=== PATIENT | male | born 1940 | race Caucasian/White ===

== ENCOUNTER 2018-06-14 10:42 | Inpatient (IN) | payer OTHER ==
[2018-06-14] MEDS ORDERED: SODIUM CHLORIDE 0.9% 1000 ML INFUS.BAG IV ONE ×2 (10:52→12:21)
[2018-06-14] MEDS ORDERED: LORazepam 20 MG/10 ML 10 ML MDV ONE (10:54)
--- NOTE | 2018-06-14 11:00 | CON.GI ---
Consult Consult Specialty:: Gastroenterology Referred by:: Dr Etienne Reason for Consultation:: Sigmoid perforation during colonoscopy - History of Present Illness Chief Complaint: patient is intubated History of Present Illness: 77M was undergoing screening colonoscopy in the office with my partner, Dr. Vu Ramos today when he suffered a perforation of the sigmoid colon. The sigmoid colon was tortuous with diverticular disease. A polyp was discovered and during attempts to position the scope for polypectomy bleeding developed which was found to be emanating from a perforation in the sigmoid colon. The colonoscopy was made more challenging by inguinal hernias. He developed abdominal distension and hypoxemia that required intubation before he awoke. He is BIBA. His emergency contacts are his son Peyman Levin , eldest sibling) and daughter Muna Jc ( [phone], ). They were contacted and now are present. I have discussed the situation with them and the need for emergent surgery. He last had a colonoscopy in 2002. During his 05/08 consultation he was complaining of constipation and LLQ pain. A surgical appliances salesperson did not feel that he hernias were the cause of the pain. - History Source History Provided By: Medical Record (from my office and in discussion with Dr Layne) Limitations to Obtaining History: Other (intubated) - Past Medical History Gastrointestinal: Yes: Diverticulosis, Hemorrhoids (hemorrhoidectomy), Other ( inguinal hernias) Additional Medical History: no medical problems were offered on 05/08/18 other than the hernias - Past Surgical History Past Surgical History: Yes: Colonoscopy Additional Surgical History: Hemorrhoidectomy - Alcohol/Substance Use Hx Alcohol Use: Yes Number of Drinks Daily: 2 (glasses of wine) History of Substance Use: reports: None - Smoking History Smoking history: Never smoked - Social History ADL: Independent 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 DM, smoker), Other : Mother ( 84 OMS) Physical Exam-GI Vital Signs: Vital Signs 06/14/18 11:00 Pulse Rate 81 Respiratory 18 Rate Blood Pressure 136/91 O2 Sat by Pulse 100 Oximetry (%) Current Medications Generic Name Dose Route Start Last Admin Trade Name José Miguel PRN Reason Stop Dose Admin Lorazepam 40 mg/ Dextrose 120 mls @ 6 mls/hr 06/14/18 11:00 06/14/18 11:12 IVPB 2 mg/hr TITR CASS 6 mls/hr Administration Protocol 2 MG/HR Piperacillin Sod/Tazobactam 50 mls @ 100 mls/hr 06/14/18 11:14 Sod 3.375 gm/ Dextrose IVPB 06/14/18 11:43 ONCE ONE Protocol Constitutional: Yes: Other (Intubated and sedated) Eyes: Yes: Conjunctiva Clear HENT: Yes: Atraumatic Neck: Yes: Supple Cardiovascular: Yes: Tachycardia Respiratory: Yes: CTA Bilaterally Gastrointestinal Inspection: Yes: Distention ...Auscultate: Yes: No Bowel Sounds ...Palpate: Yes: Other (no masses bilateral inguinal hernias, neither appears compromised) ...Percussion: Yes: Tympanitic ...Rectal Exam: Yes: Deferred Edema: No Neurological: Yes: Other (sedated) Problem List - Problems (1) Perforated sigmoid colon Code(s): K63.1 - PERFORATION OF INTESTINE (NONTRAUMATIC) (2) Diverticula of colon Code(s): K57.30 - DVRTCLOS OF LG INT W/O PERFORATION OR ABSCESS W/O BLEEDING (3) Inguinal hernia bilateral, non-recurrent Code(s): K40.20 - BI INGUINAL HERNIA, W/O OBST OR GANGRENE, NOT SPCF RECUR Assessment/Plan Impression: Perforation of sigmoid colon during colonoscopy. The bowel was prepped for the colonoscopy. Inguinal hernias Diverticulosis Plan: IV fluids IV antibiotics Zambrano catheter Blood cultures Prep for surgery I discussed the situation with his son and daughter Dr Ramos already discussed the case with Dr Tripathi
[2018-06-14] MEDS ORDERED: LORazepam 2 MG/ML SDV VIAL ONE (11:11)
[2018-06-14] MEDS ORDERED: PIPERACILLIN/TAZOB 3.375 GM 3.375 GM in DEXTROSE 5%-WATER - 50 ML IVPB ONE (11:14)
[2018-06-14] MEDS ORDERED: morphine SULFATE 4 MG/ML VIAL ONE (11:16)
[2018-06-14] MEDS ORDERED: morphine CARPU-JECT 4 MG/1 ML DISP.SYRIN IVPUSH ONE (11:17)
[2018-06-14 11:23] LABS: BASO % 0.6 % (0-2.0); EOS % 0.2 % (0-4.5); HEMATOCRIT 49.7 % (35.4-49); HEMOGLOBIN 16.9 GM/dL (11.7-16.9); LYMPH % 19.4 % (8-40); MCH 32.4 pg (25.7-33.7); MEAN CELL VOLUME 95.2 fl (80-96); MEAN PLT VOLUME 8.3 fl (7.5-11.1); MONO % 3.7 % (3.8-10.2); NEUT % 76.1 % (42.8-82.8); PLATELET COUNT 307 K/MM3 (134-434); RBC 5.22 M/mm3 (4.00-5.60); RDW 13.7 % (11.9-15.9); WHITE BLOOD COUNT 9.3 K/mm3 (4.0-10.0)
[2018-06-14] MEDS ORDERED: PIPERACILLIN/TAZOB 3.375 GM 3.375 GM/50 ML BAG IVPB ONE (11:29)
[2018-06-14 11:34] LABS: INR 0.99 (0.83-1.09); PROTHROMBIN TIME (PATIENT) 11.7 SEC (9.7-13.0)
[2018-06-14 11:37] LABS: ACTIVATED PTT 29.1 SECONDS (25.2-36.5)
[2018-06-14 11:46] LABS: ALK PHOS 89 U/L (45-117); ANION GAP 8 MMOL/L (8-16); BILIRUBIN,TOTAL 1.7 mg/dL (0.2-1); BLOOD UREA NITROGEN 14 mg/dL (7-18); CALCIUM 9.3 mg/dL (8.5-10.1); CHLORIDE 104 mmol/L (98-107); CO2 26 mmol/L (21-32); CREATININE 1.4 mg/dL (0.55-1.3); GLUCOSE,RANDOM 130 mg/dL (74-106); POTASSIUM 4.3 mmol/L (3.5-5.1); SGOT/AST 24 U/L (15-37); SGPT/ALT 31 U/L (13-61); SODIUM 139 mmol/L (136-145); TOT PROT 7.5 g/dl (6.4-8.2)
[2018-06-14 11:52] LABS: URINE APPEARANCE SLCLOUDY; URINE BILIRUBIN NEGATIVE (<2.0 mg/dL); URINE COLOR YELLOW; URINE GLUCOSE (UA) NEGATIVE (NEGATIVE); URINE KETONE 1+ (NEGATIVE); URINE LEUK ESTERASE NEGATIVE (NEGATIVE); URINE NITRITE NEGATIVE (NEGATIVE); URINE PROTEIN 1+ (NEGATIVE); URINE UROBILINOGEN NEGATIVE mg/dL (0.2-1.0)
--- NOTE | 2018-06-14 12:05 | EKG ---
Test Reason : Blood Pressure : / mmHG Vent. Rate : 085 BPM Atrial Rate : 085 BPM P-R Int : 134 ms QRS Dur : 074 ms QT Int : 394 ms P-R-T Axes : 059 014 054 degrees QTc Int : 468 ms POOR DATA QUALITY, INTERPRETATION MAY BE ADVERSELY AFFECTED SINUS RHYTHM WITH OCCASIONAL PREMATURE VENTRICULAR COMPLEXES LOW VOLTAGE QRS NONSPECIFIC T WAVE ABNORMALITY PROLONGED QT ABNORMAL ECG NO PREVIOUS ECGS AVAILABLE Confirmed by MAI MADRID, MARY ([id number]) on 06/14/2018 12:05:35 PM Referred By: Confirmed By:MARY ONEILL MD
[2018-06-14] MEDS ORDERED: ONDANSETRON 4 MG/2 ML VIAL IVPB PRN (12:13)
[2018-06-14] MEDS ORDERED: SODIUM CHLORIDE 1,000 ML IV SCH ×2 (12:15→18:30)
--- NOTE | 2018-06-14 12:16 | HP ---
CHIEF COMPLAINT: intestinal perforation PCP: dr sloan HISTORY OF PRESENT ILLNESS: History obtained from er notes and daughter. pt is intubated and sedated The patient is a 77 year old male, with a significant past medical history of diverticulitis, hemorrhoidectomy, who presents to the emergency department via ems from the office of Dr. Vu Ramos for a perforated bowel sustained while undergoing a screening colonoscopy today. The patient was reportedly intubated in the office and transferred to the ED with plan for surgery. ER course was notable for: (1)cbc, cmp, iv fluid, cxr, zosyn Recent Travel:no PAST MEDICAL HISTORY:hld PAST SURGICAL HISTORY:hemorrhoidectomy Social History: Smoking:no Alcohol:no Drugs: no Family History: not relevent Allergies No Known Allergies Allergy (Verified 03/13/18 10:22) HOME MEDICATIONS: Home Medications Medication Instructions Recorded Aspirin [ASA -] 81 mg PO DAILY 03/13/18 Cholecalciferol (Vitamin D3) 1,000 unit PO DAILY 03/13/18 [Vitamin D3] Folic Acid/Multivit-Min/Lutein 1 each PO DAILY 03/13/18 [Multi-Vitamin Gummies] REVIEW OF SYSTEMS: unobtainable PHYSICAL EXAMINATION Vital Signs - 24 hr 06/14/18 06/14/18 06/14/18 10:45 11:00 11:43 Pulse Rate 81 Pulse Rate [ 85 Apical] Respiratory 16 18 Rate Blood Pressure 136/91 Blood Pressure 101/58 L [Left Arm] O2 Sat by Pulse 100 100 Oximetry (%) GENERAL: intubated sedated EARS, NOSE, THROAT: dry mucous membranes. NECK: no JVD, or masses. LUNGS: Breath sounds equal, clear to auscultation bilaterally. No wheezes, and no crackles. No accessory muscle use. intubated HEART: Regular rate and rhythm, normal S1 and S2 without murmur, rub or gallop. ABDOMEN: distended, tender, bs- UPPER EXTREMITIES: 2+ pulses, warm, well-perfused. No cyanosis. No clubbing. No peripheral edema. LOWER EXTREMITIES: 2+ pulses, warm, well-perfused. No calf tenderness. No peripheral edema. PSYCHIATRIC: Cooperative. Good eye contact. Appropriate mood and affect. SKIN: Warm, dry, Laboratory Results - last 24 hr 06/14/18 06/14/18 06/14/18 11:02 11:02 11:02 WBC 9.3 RBC 5.22 Hgb 16.9 Hct 49.7 H MCV 95.2 MCH 32.4 MCHC 34.0 RDW 13.7 Plt Count 307 MPV 8.3 Absolute Neuts (auto) 7.1 Neutrophils % 76.1 Lymphocytes % 19.4 Monocytes % 3.7 L Eosinophils % 0.2 Basophils % 0.6 Nucleated RBC % 0 PT with INR 11.70 INR 0.99 PTT (Actin FS) 29.1 Sodium 139 Potassium 4.3 Chloride 104 Carbon Dioxide 26 Anion Gap 8 BUN 14 Creatinine 1.4 H Creat Clearance w eGFR 49.41 Random Glucose 130 H Calcium 9.3 Total Bilirubin 1.7 H AST 24 ALT 31 Alkaline Phosphatase 89 Total Protein 7.5 Albumin 4.0 Urine Color Urine Appearance Urine pH Ur Specific Etters Urine Protein Urine Glucose (UA) Urine Ketones Urine Blood Urine Nitrite Urine Bilirubin Urine Urobilinogen Ur Leukocyte Esterase Blood Type Antibody Screen 06/14/18 06/14/18 11:02 11:42 WBC RBC Hgb Hct MCV MCH MCHC RDW Plt Count MPV Absolute Neuts (auto) Neutrophils % Lymphocytes % Monocytes % Eosinophils % Basophils % Nucleated RBC % PT with INR INR PTT (Actin FS) Sodium Potassium Chloride Carbon Dioxide Anion Gap BUN Creatinine Creat Clearance w eGFR Random Glucose Calcium Total Bilirubin AST ALT Alkaline Phosphatase Total Protein Albumin Urine Color Yellow Urine Appearance Slcloudy Urine pH 5.0 Ur Specific Etters 1.015 Urine Protein 1+ H Urine Glucose (UA) Negative Urine Ketones 1+ H Urine Blood 2+ H Urine Nitrite Negative Urine Bilirubin Negative Urine Urobilinogen Negative Ur Leukocyte Esterase Negative Blood Type Cancelled Antibody Screen Cancelled ASSESSMENT/PLAN: perforation peritonitis IV fluid monitor intake/ output: maintain UO of 0.5 to 1ml/kg/hr Monitor vitals, keep map> 65 IV antibiotics on zosyn ID consult surgery on case blood culture pending cxr repeat labs in am zofran prn pantoprazole 40 iv pain control acute respiratory failure : on ventilator support fio2 40, RR 12, TV 400, peep5 keep spo2> [address] [facility] [address] ruiz consult fluid : ns 125ml/hr electrolyte: repeat in am nutrition: npo for now dvt pro: scd gi pro: protonix dispo: icu Visit type - Emergency Visit Emergency Visit: Yes ED Registration Date: 06/14/18 Care time: The patient presented to the Emergency Department on the above date and was hospitalized for further evaluation of their emergent condition. - New Patient This patient is new to me today: Yes Date on this admission: 06/16/18 - Critical Care Critical Care patient: No
[2018-06-14 12:19] LABS: URINE HYALINE CAST 3 /lpf; URINE MUCUS RARE
--- NOTE | 2018-06-14 12:30 | PN ---
Teaching Attending Note Name of Resident: Dayron Avery ATTENDING PHYSICIAN STATEMENT I saw and evaluated the patient. I reviewed the resident's note and discussed the case with the resident. I agree with the resident's findings and plan as documented. SUBJECTIVE: Mr Levin is a 77 year old male presenting from outpatient colonoscopy for iatrogenic perforation. He is intubated and mechanically ventilated upon seeing. Son is at bedside and states patient does not have any medical problems and does not take medications. He says the patient was in his normal state of health and without complaints prior to procedure. PMHx: none PSHx: hemorrhoidectomy Allergies: none Medications: none SHx: denies tobacco, alcohol, recreational drug use FHx: father of [place], mother of senile dementia ROS: unable to obtain, patient intubated and sedated OBJECTIVE: Last Vital Signs Temp Pulse Resp BP Pulse Ox 98 H 16 104/69 100 06/14/18 14:03 06/14/18 14:03 06/14/18 14:03 06/14/18 14:03 Gen: intubated and sedated Pulm: ctab, mechanically ventilated CV: tachy but regular w/o m/r/g Abd: distended, hypoactive bowel sounds Ext: no c/c/e CBC, BMP 06/14/18 11:02 06/14/18 11:02 ASSESSMENT AND PLAN: Problem List - Problems (1) Perforated sigmoid colon Assessment/Plan: -admit to ICU -surgery consulted and will see, plan for emergent surgical intervention -placed on zosyn, will continue -ID consulted Code(s): K63.1 - PERFORATION OF INTESTINE (NONTRAUMATIC) (2) Respiratory failure Assessment/Plan: -currently mechanically ventilated -admit to ICU -evaluate for extubation after surgery Code(s): J96.90 - RESPIRATORY FAILURE, UNSP, UNSP W HYPOXIA OR HYPERCAPNIA Qualifiers: Chronicity: acute Respiratory failure complication: hypoxia Qualified Code(s): J96.01 - Acute respiratory failure with hypoxia (3) Lactic acid acidosis Assessment/Plan: -secondary to perforation -hydrate with IVF -continue zosyn -surgical repair of perforation -mechanical support of ventilation Code(s): E87.2 - ACIDOSIS
[2018-06-14] MEDS ORDERED: fentaNYL CITRATE 250 MCG/5 ML VIAL ONE ×2 (12:56→18:33)
[2018-06-14] MEDS ORDERED: ROCURONIUM BROMIDE 50 MG/5 ML VIAL ONE ×2 (12:58→14:58)
[2018-06-14] MEDS ORDERED: SUCCINYLCHOLINE CHLORIDE 200 MG/10 ML VIAL ONE (12:58)
[2018-06-14] MEDS ORDERED: DEXAMETHASONE SOD PHOSPHATE 4 MG/1 ML VIAL ONE ×2 (13:07→13:08)
[2018-06-14] MEDS ORDERED: KETOROLAC TROMETHAMINE 30 MG/1 ML VIAL ONE ×2 (13:07→13:08)
[2018-06-14] MEDS ORDERED: ONDANSETRON 4 MG/2 ML VIAL ONE (13:08)
[2018-06-14] MEDS ORDERED: PHENYLEPHRINE HCL 10 MG/1 ML SINGLE DOSE VIAL ONE (13:20)
--- NOTE | 2018-06-14 14:27 | CONSULT ---
- Consultation REQUESTING PROVIDER: Richard MADRID CONSULT REQUEST: We have been asked to surgically evaluate this patient for ( specify). PCP:Lawrence Cantor MD HISTORY OF PRESENT ILLNESS: 77y/o male was undergoing screening colonoscopy today as an outpatient and I was contacetde by Dr. Marcelle Ramos that there was a perforation of the sigmoid colon; pt. was intubated in the office and xferred to the [facility] ER. PMHx: none PSHx: none Home Medications Medication Instructions Recorded Aspirin [ASA -] 81 mg PO DAILY 03/13/18 Cholecalciferol (Vitamin D3) 1,000 unit PO DAILY 03/13/18 [Vitamin D3] Folic Acid/Multivit-Min/Lutein 1 each PO DAILY 03/13/18 [Multi-Vitamin Gummies] Allergies Allergy/AdvReac Type Severity Reaction Status Date / Time No Known Allergies Allergy Verified 06/14/18 12:31 REVIEW OF SYSTEMS: all negative per his daughter e/f known bilateral inguinal hernias. CONSTITUTIONAL: Absent: fever, chills, diaphoresis, generalized weakness, malaise, loss of appetite, weight change CARDIOVASCULAR: Absent: chest pain, syncope, palpitations, irregular heart rate, lightheadedness , peripheral edema RESPIRATORY: Absent: cough, shortness of breath, dyspnea with exertion, wheezing, stridor, hemoptysis GASTROINTESTINAL: Absent: abdominal pain, abdominal distension, nausea, vomiting, diarrhea, constipation, melena, hematochezia GENITOURINARY: Absent: dysuria, frequency, urgency, hesitancy, hematuria, flank pain, genital pain MUSCULOSKELETAL: Absent: myalgia, arthralgia, joint swelling, back pain, neck pain SKIN: Absent: rash, itching, pallor HEMATOLOGIC/IMMUNOLOGIC: Absent: easy bleeding, easy bruising, lymphadenopathy NEUROLOGIC: Absent: headache, focal weakness, paresthesias, dizziness, unsteady gait, seizure, mental status changes, bladder or bowel incontinence PSYCHIATRIC: Absent: anxiety, depression, suicidal or homicidal ideation, hallucinations. PHYSICAL EXAM: GENERAL: Sedated and intubated in acute distress. HEAD: Normal with no signs of trauma. EYES: PERRL, sclera anicteric, conjunctiva clear. NECK: Normal ROM, supple without lymphadenopathy, JVD, or masses. ABDOMEN: Rigid and distended, absebt bowel sounds, guarding and rebound are present,there are b/l inguinal hernias. MUSCULOSKELETAL: Normal ROM at all joints. No bony deformities or tenderness. No CVA tenderness. UPPER EXTREMITIES: 2+ pulses, warm, well-perfused. No cyanosis. Cap refill <2 seconds. No peripheral edema. LOWER EXTREMITIES: 2+ pulses, warm, well-perfused. No calf tenderness. No peripheral edema. NEUROLOGICAL: gait not observed. SKIN: Warm, dry, normal turgor, no rashes or lesions noted. Vital Signs Temperature Pulse Rate 98 H 06/14/18 14:03 Respiratory Rate 16 06/14/18 14:03 Blood Pressure 104/69 06/14/18 14:03 O2 Sat by Pulse Oximetry (%) 100 06/14/18 14:03 Lab Results WBC 9.3 K/mm3 (4.0-10.0) 06/14/18 11:02 RBC 5.22 M/mm3 (4.00-5.60) 06/14/18 11:02 Hgb 16.9 GM/dL (11.7-16.9) 06/14/18 11:02 Hct 49.7 % (35.4-49) H 06/14/18 11:02 MCV 95.2 fl (80-96) 06/14/18 11:02 MCHC 34.0 g/dl (32.0-35.9) 06/14/18 11:02 RDW 13.7 % (11.9-15.9) 06/14/18 11:02 Plt Count 307 K/MM3 (134-434) 06/14/18 11:02 Sodium 139 mmol/L (136-145) 06/14/18 11:02 Potassium 4.3 mmol/L (3.5-5.1) 06/14/18 11:02 Chloride 104 mmol/L (98-107) 06/14/18 11:02 Carbon Dioxide 26 mmol/L (21-32) 06/14/18 11:02 Anion Gap 8 MMOL/L (8-16) 06/14/18 11:02 BUN 14 mg/dL (7-18) 06/14/18 11:02 Creatinine 1.4 mg/dL (0.55-1.3) H 06/14/18 11:02 Random Glucose 130 mg/dL (74-106) H 06/14/18 11:02 Calcium 9.3 mg/dL (8.5-10.1) 06/14/18 11:02 Blood Type Cancelled 06/14/18 11:02 Antibody Screen Cancelled 06/14/18 11:02 INR 0.99 (0.83-1.09) 06/14/18 11:02 CXR c/w pneumoperitoneum IMP: preforated sigmoid colon PLAN: To OR for laparotomy and possible Hartmans procedure and AOSDN; informed consent obtained from the patients daughter Elise; r/b/t/a's d/w her. Sebas Guzman> Bhumi MADRID FACS
[2018-06-14] MEDS ORDERED: ERTAPENEM SODIUM 1 GM VIAL IVPB ONE (14:41)
[2018-06-14] MEDS ORDERED: CEFOXITIN SODIUM 2 GM IVPB ONE (14:53)
[2018-06-14] MEDS ORDERED: ERTAPENEM SODIUM 1 GM VIAL ONE (14:54)
[2018-06-14] MEDS ORDERED: PROPOFOL 20 ML ONE (14:59)
[2018-06-14] MEDS ORDERED: ONDANSETRON 4 MG/2 ML VIAL IVPUSH PRN (15:26)
[2018-06-14] MEDS ORDERED: LACTATED RINGERS SOLUTION 1,000 ML IV SCH (15:30)
[2018-06-14] MEDS ORDERED: HYDROmorphone HCl 2 MG/ML VIAL ONE (16:11)
[2018-06-14] MEDS ORDERED: BENZOIN TINCTURE SWABSTICK TP ONE ×2 (16:32)
[2018-06-14] MEDS ORDERED: GLYCOPYRROLATE 0.2 MG/1 ML VIAL ONE (17:18)
[2018-06-14] MEDS ORDERED: NEOSTIGMINE METHYLSULFATE 0.5 MG/1 ML - 10 ML MDV ONE (17:18)
--- NOTE | 2018-06-14 17:36 | OP ---
Operative Note - Note: Operative Date: 06/14/18 Pre-Operative Diagnosis: Perforated sigmoid colon Operation: Exploratory laparotomy, Robb's procedure Post-Operative Diagnosis: Same as Pre-op Surgeon: Sebas Tripathi Stock Preparer: Issa Duron Anesthesiologist/YOUTH SUPPORT WORKER: Jones Gonzalez Anesthesia: General Estimated Blood Loss (mls): 100 Operative Report Dictated: Yes
--- NOTE | 2018-06-14 17:37 | SURG ---
Surgery Clinical Safety Manager Note Clinical Safety Manager: Issa Duron PA-C Date of Service: 06/14/18 Diagnosis: Perforated sigmoid colon Procedure: Exploratory laparotomy, nobles's procedure I was present for the entirety of the operative procedure. For further detail, please refer to operative report. Visit type - Case Type Case Type: ED Admission - Emergency Emergency Visit: Yes ED Registration Date: 06/14/18 Care time: The patient presented to the Emergency Department on the above date and was hospitalized for further evaluation of their emergent condition. - New patient This patient is new to me today: Yes Date on this admission: 06/14/18
[2018-06-14] MEDS ORDERED: LACTATED RINGERS SOLUTION 1,000 ML/1,000 ML INFUS.BAG IV SCH (18:00)
[2018-06-14] MEDS ORDERED: PROPOFOL 1,000,000 MCG/100 ML VIAL IVPB SCH (18:00)
[2018-06-14] MEDS ORDERED: FENTANYL INJECTION 500 MCG in DEXTROSE 5%-WATER - 90 ML IVPB SCH (18:00)
--- NOTE | 2018-06-14 18:08 | CONSULT ---
Consultation: REQUESTING PROVIDER: CONSULT REQUEST: We have been asked to medically evaluate this patient for postoperative management, ICU admission. HISTORY OF PRESENT ILLNESS: Patient is a 77 year old male with history of diverticulosis, hemorrhoids (s/p hemorrhoidectomy), bilateral inguinal hernias, presented to [facility] emergency department after sigmoid colon perforation with screening colonoscopy. Last colonoscopy performed in 2002. No documented history of prior bowel perforation. He is s/p exploratory laparotomy, and Robb's procedure today. EBL 100mL. Upon my encounter patient is intubated, sedated in no acute distress. Son: Peyman Daughter: Mary Lou Past medical history: diverticulosis, hemorrhoids, bilateral inguinal hernias Past surgical history: hemorrhoidectomy Allergies: no known drug allergies Family history: (obtained from chart review) Father: Hypertension, from myocardial infarction Mother: Dementia REVIEW OF SYSTEMS: Unable to obtain. Patient is intubated and sedated. PHYSICAL EXAMINATION Vital Signs - 24 hr 06/14/18 06/14/18 06/14/18 10:45 11:00 11:43 Pulse Rate 81 Pulse Rate [ 85 Apical] Respiratory 16 18 Rate Blood Pressure 136/91 Blood Pressure 101/58 L [Left Arm] O2 Sat by Pulse 100 100 Oximetry (%) 06/14/18 14:03 Pulse Rate Pulse Rate [ 98 H Apical] Respiratory 16 Rate Blood Pressure Blood Pressure 104/69 [Left Arm] O2 Sat by Pulse 100 Oximetry (%) GENERAL: Patient is intubated, sedated. HEAD: Normocephalic, atrauamtic. EYES: Pupils equal, round and reactive to light, sclera anicteric, conjunctiva clear. EARS, NOSE, THROAT: Oropharynx clear without exudates. Dry mucous membranes. NECK: Supple without lymphadenopathy. LUNGS: Intubated. Mechanical breath sounds equal, clear to auscultation bilaterally. No wheezes, and no crackles. HEART: Regular rate and rhythm, normal S1 and S2 without murmur, rub or gallop. ABDOMEN: Tensly distended. Tympanic to percussion x4 quadrants. Hypoactive bowel sounds X4 quadrants. No hepatomegaly or splenomegaly palpated or percussed. Surgical site bandaged clean, dry, intact. BETTY drain draining sanguinous discharge. UPPER EXTREMITIES: 2+ radial pulses bilaterally, warm, well-perfused. Cap refill <2 seconds. LOWER EXTREMITIES: 2+ dorsalis pedis pulses, warm, well-perfused. No peripheral edema bilateral lower extremities. NEUROLOGICAL: Patient is sedated. Symmetrical muscle tone bilateral upper and lower extremities. Laboratory Results - last 24 hr 06/14/18 06/14/18 06/14/18 11:02 11:02 11:02 WBC 9.3 RBC 5.22 Hgb 16.9 Hct 49.7 H MCV 95.2 MCH 32.4 MCHC 34.0 RDW 13.7 Plt Count 307 MPV 8.3 Absolute Neuts (auto) 7.1 Neutrophils % 76.1 Lymphocytes % 19.4 Monocytes % 3.7 L Eosinophils % 0.2 Basophils % 0.6 Nucleated RBC % 0 PT with INR 11.70 INR 0.99 PTT (Actin FS) 29.1 Sodium 139 Potassium 4.3 Chloride 104 Carbon Dioxide 26 Anion Gap 8 BUN 14 Creatinine 1.4 H Creat Clearance w eGFR 49.41 Random Glucose 130 H Lactic Acid Calcium 9.3 Total Bilirubin 1.7 H AST 24 ALT 31 Alkaline Phosphatase 89 Total Protein 7.5 Albumin 4.0 Urine Color Urine Appearance Urine pH Ur Specific [place] Urine Protein Urine Glucose (UA) Urine Ketones Urine Blood Urine Nitrite Urine Bilirubin Urine Urobilinogen Ur Leukocyte Esterase Urine WBC (Auto) Urine RBC (Auto) Hyaline Casts Urine Mucus Blood Type Antibody Screen 06/14/18 06/14/18 06/14/18 11:02 11:05 11:42 WBC RBC Hgb Hct MCV MCH MCHC RDW Plt Count MPV Absolute Neuts (auto) Neutrophils % Lymphocytes % Monocytes % Eosinophils % Basophils % Nucleated RBC % PT with INR INR PTT (Actin FS) Sodium Potassium Chloride Carbon Dioxide Anion Gap BUN Creatinine Creat Clearance w eGFR Random Glucose Lactic Acid Calcium Total Bilirubin AST ALT Alkaline Phosphatase Total Protein Albumin Urine Color Yellow Urine Appearance Slcloudy Urine pH 5.0 Ur Specific [place] 1.015 Urine Protein 1+ H Urine Glucose (UA) Negative Urine Ketones 1+ H Urine Blood 2+ H Urine Nitrite Negative Urine Bilirubin Negative Urine Urobilinogen Negative Ur Leukocyte Esterase Negative Urine WBC (Auto) 2 Urine RBC (Auto) 13 Hyaline Casts 3 Urine Mucus Rare Blood Type Cancelled O POSITIVE Antibody Screen Cancelled 06/14/18 06/14/18 13:10 13:10 WBC RBC Hgb Hct MCV MCH MCHC RDW Plt Count MPV Absolute Neuts (auto) Neutrophils % Lymphocytes % Monocytes % Eosinophils % Basophils % Nucleated RBC % PT with INR INR PTT (Actin FS) Sodium Potassium Chloride Carbon Dioxide Anion Gap BUN Creatinine Creat Clearance w eGFR Random Glucose Lactic Acid 2.6 H* Calcium Total Bilirubin AST ALT Alkaline Phosphatase Total Protein Albumin Urine Color Urine Appearance Urine pH Ur Specific [place] Urine Protein Urine Glucose (UA) Urine Ketones Urine Blood Urine Nitrite Urine Bilirubin Urine Urobilinogen Ur Leukocyte Esterase Urine WBC (Auto) Urine RBC (Auto) Hyaline Casts Urine Mucus Blood Type O POSITIVE Antibody Screen Negative Active Medications Generic Name Dose Route Start Last Admin Trade Name Freq PRN Reason Stop Dose Admin Acetaminophen 1,000 mg 06/14/18 12:14 Ofirmev Injection - IVPB Q6H PRN PAIN LEVEL 4 - 6 Albuterol/Ipratropium 1 amp 06/14/18 16:00 Duoneb - NEB RQID CASS Chlorhexidine Gluconate 1 applic 06/14/18 22:00 Hibiclens For Decolonization - TP HS CASS Fentanyl 25 mcg 06/14/18 15:26 Sublimaze Injection - IVPUSH [id number] PRN PAIN-PACU ORDER X 4 DOSES ONLY Lorazepam 40 mg/ Dextrose 120 mls @ 6 mls/hr 06/14/18 11:00 06/14/18 12:48 IVPB 3 mg/hr TITR CASS 9 mls/hr Titration Protocol 2 MG/HR Sodium Chloride 1,000 mls @ 125 mls/hr 06/14/18 12:15 Normal Saline - IV ASDIR CASS Piperacillin Sod/Tazobactam 100 mls @ 200 mls/hr 06/15/18 15:00 Sod 4.5 gm/ Dextrose IVPB Q6H-IV CASS Protocol Piperacillin Sod/Tazobactam 100 mls @ 200 mls/hr 06/14/18 15:00 Sod 4.5 gm/ Dextrose IVPB 06/15/18 09:29 Q6H-IV CASS Lactated Ringer's 1,000 mls @ 75 mls/hr 06/14/18 15:30 Lactated Ringers Solution IV ASDIR CASS Propofol 1,000,000 mcg in 100 mls @ 2.1 mls/hr 06/14/18 18:00 Diprivan - IVPB TITR CASS Protocol 5 MCG/KG/MIN Fentanyl 500 mcg/ Dextrose 100 mls @ 0.02 mls/hr 06/14/18 18:00 IVPB TITR CASS Protocol 0.1 MCG/HR Mupirocin 1 applic 06/14/18 22:00 Bactroban Ointment (For Decolonization) - NS 06/19/18 21:59 BID CASS Ondansetron HCl 4 mg 06/14/18 12:13 Zofran Injection IVPB Q8H PRN NAUSEA Ondansetron HCl 4 mg 06/14/18 15:26 Zofran Injection IVPUSH Q6H PRN NAUSEA AND/OR VOMITING Pantoprazole Sodium 40 mg 06/15/18 10:00 Protonix Iv IVPUSH DAILY [facility] ASSESSMENT/PLAN: Patient is a 77 year old male with history of diverticulosis, hemorrhoids (s/p hemorrhoidectomy), bilateral inguinal hernias, presented to [facility] emergency department after sigmoid colon perforation with screening colonoscopy. Admitted to ICU for postoperative management s/p exploratory laparotomy and Robb's procedure. Neurological -Patient is sedated with Propofol drip. -Fentanyl drip for pain control -Monitor for signs of mental status change Pulmonary -Patient is intubated. Ventilator settings: respiratory rate 12, tidal volume 550, FiO2 60%, PEEP 5 -Maintain oxygen saturation greater than 90% Cardiovascular -Patient is normotensive. Currently not on any pressors -Maintain MAP greater than 65 -Monitor vital signs closely Gastrointestinal -Patient is POD #0 s/p Robb's procedure for bowel perforation during colonoscopy. -General surgery (Dr. Tripathi) recommendations appreciated -Gastroenterology (Dr. Bolton) recommendations appreciated -Lactic acid 2.6. Will follow. -Monitor colostomy bag output -Protonix 40mg IV daily -NPO Renal -Patient urinating clear yellow urine with bedolla catheter -Monitor strict intake and output Infectious disease -Follow blood cultures -Follow urine cultures -ID consult (Dr. Schofield) -Zosyn 4.5 grams IV Q6H Fluids, Electrolytes, Nutrition -Fluids: IV normal saline at 100mL/ hour -Electrolytes: Follow CMP. Replete as necessary -Nutrition: NPO Lines, Tubes, Drains -Endotracheal intubation 06/14 -Nasogastric tube 06/14 -BETTY drain 06/14 -Bedolla catheter 06/14 Prophylaxis -SCDs bilateral upper and lower extremities. Disposition: We will continue to follow the patient. Thank you for this consultative opportunity. Visit type - Emergency Visit Emergency Visit: Yes ED Registration Date: 06/14/18 Care time: The patient presented to the Emergency Department on the above date and was hospitalized for further evaluation of their emergent condition. - New Patient This patient is new to me today: Yes Date on this admission: 06/14/18 - Critical Care Critical Care patient: Yes Total Critical Care Time (in minutes): 35 Critical Care Statement: The care of this patient involved high complexity decision making to prevent further life threatening deterioration of the patient 's condition and/or to evaluate & treat vital organ system(s) failure or risk of failure.
[2018-06-14] MEDS: PIPERACILLIN/TAZOB 4.5 GM 4.5 GM in DEXTROSE 5%-WATER 100 ML IVPB SCH ×2 (18:31→22:00)
[2018-06-14] MEDS: ALBUTEROL SO4 2.5/IPRATROPIUM 0.5 INH SOL 3 ML VIAL.NEB. NEB SCH ×2 (18:52→21:30)
[2018-06-14] MEDS ORDERED: DEXTROSE 5%-WATER 100 ML IVPB ONE (22:44)
[2018-06-14] MEDS ORDERED: PIPERACILLIN/TAZOBACTAM 4.5 GM VIAL IVPB ONE (22:44)
[2018-06-14] MEDS: MUPIROCIN 2% TOPICAL OINTMENT FOR DECOLONIZATION NS SCH (22:45)
[2018-06-14] MEDS: CHLORHEXIDINE GLUCONATE 4% CLEANSER FOR DECOLONIZATION TP SCH (22:46)
[2018-06-15] MEDS ORDERED: DEXTROSE 5%-WATER 100 ML IVPB ONE ×4 (01:50→21:05)
[2018-06-15] MEDS ORDERED: PIPERACILLIN/TAZOBACTAM 4.5 GM VIAL IVPB ONE ×4 (01:50→21:05)
[2018-06-15] MEDS: PIPERACILLIN/TAZOB 4.5 GM 4.5 GM in DEXTROSE 5%-WATER 100 ML IVPB SCH ×4 (02:13→21:09)
[2018-06-15 06:34] LABS: HEMATOCRIT 43.3 % (35.4-49); HEMOGLOBIN 14.7 GM/dL (11.7-16.9); LYMPH % 3.3 % (8-40); MCH 32.5 pg (25.7-33.7); MEAN CELL VOLUME 95.6 fl (80-96); MEAN PLT VOLUME 8.3 fl (7.5-11.1); MONO % 4.9 % (3.8-10.2); NEUT % 91.8 % (42.8-82.8); PLATELET COUNT 196 K/MM3 (134-434); RBC 4.53 M/mm3 (4.00-5.60); RDW 13.3 % (11.9-15.9); WHITE BLOOD COUNT 13.2 K/mm3 (4.0-10.0)
[2018-06-15 07:00] LABS: CHOLESTEROL 134 mg/dL (50-200); HDL CHOLESTEROL 61 mg/dL (40-60); TRIGLYCERIDES 52 mg/dL (0-150)
[2018-06-15 07:22] LABS: ALBUMIN 2.5 g/dl (3.4-5.0); ALK PHOS 50 U/L (45-117); ANION GAP 9 MMOL/L (8-16); BILIRUBIN,TOTAL 1.8 mg/dL (0.2-1); BLOOD UREA NITROGEN 14 mg/dL (7-18); CALCIUM 7.6 mg/dL (8.5-10.1); CHLORIDE 108 mmol/L (98-107); CO2 23 mmol/L (21-32); CREATININE 1.2 mg/dL (0.55-1.3); GLUCOSE,RANDOM 123 mg/dL (74-106); MAGNESIUM 1.6 mg/dL (1.8-2.4); PHOSPHOROUS 3.8 mg/dL (2.5-4.9); POTASSIUM 4.2 mmol/L (3.5-5.1); SGOT/AST 17 U/L (15-37); SGPT/ALT 22 U/L (13-61); SODIUM 140 mmol/L (136-145); TOT PROT 5.2 g/dl (6.4-8.2)
[2018-06-15] MEDS ORDERED: MAGNESIUM SULF 50% (8.12 MEQ/2 ML-1 GM VIAL) IVPB ONE (08:00)
[2018-06-15] MEDS: ALBUTEROL SO4 2.5/IPRATROPIUM 0.5 INH SOL 3 ML VIAL.NEB. NEB SCH ×4 (08:38→20:10)
--- NOTE | 2018-06-15 08:53 | PN ---
Physical Exam: SUBJECTIVE: Patient seen and examined at bedside this morning. Patient remained afebrile overnight. Remains intubated. Weaned off sedation this morning. He is arousable and follows commands to move all four extremities. OBJECTIVE: Vital Signs Period Temp Pulse Resp BP Sys/Mars Pulse Ox Last 24 Hr 97.5 F-98.5 F 81-98 9-18 90-144/53-91 100-100 GENERAL: Patient is intubated, off sedation. Following commands, moving all four extremities. HEAD: Normocephalic, atrauamtic. EYES: Pupils equal, round and reactive to light, sclera anicteric, conjunctiva clear. EARS, NOSE, THROAT: Oropharynx clear without exudates. Dry mucous membranes. NECK: Supple without lymphadenopathy. LUNGS: Intubated. Mechanical breath sounds equal, clear to auscultation bilaterally. No wheezes, and no crackles. HEART: Regular rate and rhythm, normal S1 and S2 without murmur, rub or gallop. ABDOMEN: Soft, tympanic to percussion x4 quadrants. Hypoactive bowel sounds X4 quadrants. No hepatomegaly or splenomegaly palpated or percussed. Surgical site bandaged clean, dry, intact. BETTY drain draining sanguinous discharge. Colostomy bag with serosanguinous drainage. UPPER EXTREMITIES: 2+ radial pulses bilaterally, warm, well-perfused. Cap refill <2 seconds. LOWER EXTREMITIES: 2+ dorsalis pedis pulses, warm, well-perfused. No peripheral edema bilateral lower extremities. NEUROLOGICAL: Patient is sleepy, off sedation. Symmetrical muscle tone bilateral upper and lower extremities. Laboratory Results - last 24 hr 06/14/18 06/14/18 06/14/18 11:02 11:02 11:02 WBC 9.3 RBC 5.22 Hgb 16.9 Hct 49.7 H MCV 95.2 MCH 32.4 MCHC 34.0 RDW 13.7 Plt Count 307 MPV 8.3 Absolute Neuts (auto) 7.1 Neutrophils % 76.1 Lymphocytes % 19.4 Monocytes % 3.7 L Eosinophils % 0.2 Basophils % 0.6 Nucleated RBC % 0 PT with INR 11.70 INR 0.99 PTT (Actin FS) 29.1 Sodium 139 Potassium 4.3 Chloride 104 Carbon Dioxide 26 Anion Gap 8 BUN 14 Creatinine 1.4 H Creat Clearance w eGFR 49.41 POC Glucometer Random Glucose 130 H Lactic Acid Calcium 9.3 Phosphorus Magnesium Total Bilirubin 1.7 H AST 24 ALT 31 Alkaline Phosphatase 89 Creatine Kinase Troponin I Total Protein 7.5 Albumin 4.0 Triglycerides Cholesterol Total LDL Cholesterol HDL Cholesterol Urine Color Urine Appearance Urine pH Ur Specific [place] Urine Protein Urine Glucose (UA) Urine Ketones Urine Blood Urine Nitrite Urine Bilirubin Urine Urobilinogen Ur Leukocyte Esterase Urine WBC (Auto) Urine RBC (Auto) Hyaline Casts Urine Mucus Blood Type Antibody Screen 06/14/18 06/14/18 06/14/18 11:02 11:05 11:42 WBC RBC Hgb Hct MCV MCH MCHC RDW Plt Count MPV Absolute Neuts (auto) Neutrophils % Lymphocytes % Monocytes % Eosinophils % Basophils % Nucleated RBC % PT with INR INR PTT (Actin FS) Sodium Potassium Chloride Carbon Dioxide Anion Gap BUN Creatinine Creat Clearance w eGFR POC Glucometer Random Glucose Lactic Acid Calcium Phosphorus Magnesium Total Bilirubin AST ALT Alkaline Phosphatase Creatine Kinase Troponin I Total Protein Albumin Triglycerides Cholesterol Total LDL Cholesterol HDL Cholesterol Urine Color Yellow Urine Appearance Slcloudy Urine pH 5.0 Ur Specific [place] 1.015 Urine Protein 1+ H Urine Glucose (UA) Negative Urine Ketones 1+ H Urine Blood 2+ H Urine Nitrite Negative Urine Bilirubin Negative Urine Urobilinogen Negative Ur Leukocyte Esterase Negative Urine WBC (Auto) 2 Urine RBC (Auto) 13 Hyaline Casts 3 Urine Mucus Rare Blood Type Cancelled O POSITIVE Antibody Screen Cancelled 06/14/18 06/14/18 06/14/18 13:10 13:10 21:30 WBC RBC Hgb Hct MCV MCH MCHC RDW Plt Count MPV Absolute Neuts (auto) Neutrophils % Lymphocytes % Monocytes % Eosinophils % Basophils % Nucleated RBC % PT with INR INR PTT (Actin FS) Sodium Potassium Chloride Carbon Dioxide Anion Gap BUN Creatinine Creat Clearance w eGFR POC Glucometer Random Glucose Lactic Acid 2.6 H* 2.0 Calcium Phosphorus Magnesium Total Bilirubin AST ALT Alkaline Phosphatase Creatine Kinase Troponin I Total Protein Albumin Triglycerides Cholesterol Total LDL Cholesterol HDL Cholesterol Urine Color Urine Appearance Urine pH Ur Specific [place] Urine Protein Urine Glucose (UA) Urine Ketones Urine Blood Urine Nitrite Urine Bilirubin Urine Urobilinogen Ur Leukocyte Esterase Urine WBC (Auto) Urine RBC (Auto) Hyaline Casts Urine Mucus Blood Type O POSITIVE Antibody Screen Negative 06/15/18 06/15/18 06/15/18 01:17 05:30 05:30 WBC 13.2 H RBC 4.53 Hgb 14.7 Hct 43.3 MCV 95.6 MCH 32.5 MCHC 34.0 RDW 13.3 Plt Count 196 D MPV 8.3 Absolute Neuts (auto) 12.1 H Neutrophils % 91.8 H D Lymphocytes % 3.3 L D Monocytes % 4.9 Eosinophils % 0.0 D Basophils % 0.0 Nucleated RBC % 0 PT with INR INR PTT (Actin FS) Sodium 140 Potassium 4.2 Chloride 108 H Carbon Dioxide 23 Anion Gap 9 BUN 14 Creatinine 1.2 Creat Clearance w eGFR 59.02 POC Glucometer 157 Random Glucose 123 H Lactic Acid Calcium 7.6 L Phosphorus 3.8 Magnesium 1.6 L Total Bilirubin 1.8 H AST 17 ALT 22 Alkaline Phosphatase 50 Creatine Kinase 119 Troponin I < 0.02 Total Protein 5.2 L Albumin 2.5 L Triglycerides Cholesterol Total LDL Cholesterol HDL Cholesterol Urine Color Urine Appearance Urine pH Ur Specific [place] Urine Protein Urine Glucose (UA) Urine Ketones Urine Blood Urine Nitrite Urine Bilirubin Urine Urobilinogen Ur Leukocyte Esterase Urine WBC (Auto) Urine RBC (Auto) Hyaline Casts Urine Mucus Blood Type Antibody Screen 06/15/18 06/15/18 06/15/18 05:30 05:30 06:23 WBC RBC Hgb Hct MCV MCH MCHC RDW Plt Count MPV Absolute Neuts (auto) Neutrophils % Lymphocytes % Monocytes % Eosinophils % Basophils % Nucleated RBC % PT with INR INR PTT (Actin FS) Sodium Potassium Chloride Carbon Dioxide Anion Gap BUN Creatinine Creat Clearance w eGFR POC Glucometer 117 Random Glucose Lactic Acid 2.3 H* Calcium Phosphorus Magnesium Total Bilirubin AST ALT Alkaline Phosphatase Creatine Kinase Troponin I Total Protein Albumin Triglycerides 52 Cholesterol 134 Total LDL Cholesterol 67 HDL Cholesterol 61 H Urine Color Urine Appearance Urine pH Ur Specific [place] Urine Protein Urine Glucose (UA) Urine Ketones Urine Blood Urine Nitrite Urine Bilirubin Urine Urobilinogen Ur Leukocyte Esterase Urine WBC (Auto) Urine RBC (Auto) Hyaline Casts Urine Mucus Blood Type Antibody Screen Active Medications Generic Name Dose Route Start Last Admin Trade Name Freq PRN Reason Stop Dose Admin Acetaminophen 1,000 mg 06/14/18 12:14 Ofirmev Injection - IVPB Q6H PRN PAIN LEVEL 4 - 6 Albuterol/Ipratropium 1 amp 06/14/18 16:00 06/15/18 08:38 Duoneb - NEB 1 amp RQID CASS Administration Chlorhexidine Gluconate 1 applic 06/14/18 22:00 06/14/18 22:46 Hibiclens For Decolonization - TP 1 applic HS CASS Administration Lorazepam 40 mg/ Dextrose 120 mls @ 6 mls/hr 06/14/18 11:00 06/14/18 12:48 IVPB 3 mg/hr TITR CASS 9 mls/hr Titration Protocol 2 MG/HR Piperacillin Sod/Tazobactam 100 mls @ 200 mls/hr 06/15/18 15:00 Sod 4.5 gm/ Dextrose IVPB Q6H-IV CASS Protocol Piperacillin Sod/Tazobactam 100 mls @ 200 mls/hr 06/14/18 15:00 06/15/18 02: 13 Sod 4.5 gm/ Dextrose IVPB 06/15/18 09:29 200 mls/hr Q6H-IV CASS Administration Propofol 1,000,000 mcg in 100 mls @ 2.1 mls/hr 06/14/18 18:00 06/14/18 19:14 Diprivan - IVPB 20 mcg/kg/min TITR CASS 8.4 mls/hr Titration Protocol 5 MCG/KG/MIN Fentanyl 500 mcg/ Dextrose 100 mls @ 0.02 mls/hr 06/14/18 18:00 06/14/18 18: 50 IVPB 25 mcg/hr TITR CASS 5 mls/hr Administration Protocol 0.1 MCG/HR Sodium Chloride 1,000 mls @ 100 mls/hr 06/14/18 18:30 06/14/18 18:52 Normal Saline - IV 100 mls/hr ASDIR CASS Administration Mupirocin 1 applic 06/14/18 22:00 06/14/18 22:45 Bactroban Ointment (For Decolonization) - NS 06/19/18 21:59 1 applic BID CASS Administration Ondansetron HCl 4 mg 06/14/18 12:13 Zofran Injection IVPB Q8H PRN NAUSEA Ondansetron HCl 4 mg 06/14/18 15:26 Zofran Injection IVPUSH Q6H PRN NAUSEA AND/OR VOMITING Pantoprazole Sodium 40 mg 06/15/18 10:00 Protonix Iv IVPUSH DAILY CASS Pneumococcal 13-Valent Conj Vacc 0.5 ml 06/15/18 10:00 Prevnar 13 Syringe - IM 06/15/18 10:01 .ONCE ONE ASSESSMENT/PLAN: Patient is a 77 year old male with history of diverticulosis, hemorrhoids (s/p hemorrhoidectomy), bilateral inguinal hernias, presented to [facility] emergency department after sigmoid colon perforation with screening colonoscopy. Admitted to ICU for postoperative management s/p exploratory laparotomy and Robb's procedure. Neurological -Patient is sedated with Propofol drip. Will wean off sedation today and assess mental status. -Fentanyl drip for pain control, currently paused to assess mental status. -Pain control with Ofirmev 1000mg IV Q6H PRN -Monitor for signs of mental status change Pulmonary -Patient is intubated. Ventilator settings: respiratory rate 12, tidal volume 550, FiO2 50%, PEEP 5 -Weaning trial today. Will attempt to extubate once patient is more awake -Maintain oxygen saturation greater than 90% Cardiovascular -Patient is normotensive. Currently not on any pressors -Maintain MAP greater than 65 -Monitor vital signs closely Gastrointestinal -Patient is POD #1 s/p Robb's procedure for bowel perforation during colonoscopy. -General surgery (Dr. Tripathi) recommendations appreciated -Gastroenterology (Dr. Bolton) recommendations appreciated -Lactic acid 2.6 -> 2.3 -Colostomy bag with sanguinous drainage -Protonix 40mg IV daily -NPO Renal -Patient urinating clear yellow urine with bedolla catheter -Monitor strict intake and output Infectious disease -Follow blood cultures -Follow urine cultures -ID consult (Dr. Schofield) -Zosyn 4.5 grams IV Q6H (day #2) Fluids, Electrolytes, Nutrition -Fluids: IV normal saline at 150mL/ hour -Electrolytes: Follow CMP. Replete as necessary -Nutrition: NPO Lines, Tubes, Drains -Endotracheal intubation 06/14 -Nasogastric tube 06/14 -Colostomy bag 06/14 -BETTY drain 06/14 -Bedolla catheter / Prophylaxis -SCDs bilateral upper and lower extremities. -Protonix 40mg IV daily Disposition: Continue care in ICU Visit type - Emergency Visit Emergency Visit: Yes ED Registration Date: 06/14/18 Care time: The patient presented to the Emergency Department on the above date and was hospitalized for further evaluation of their emergent condition. - New Patient This patient is new to me today: No - Critical Care Critical Care patient: Yes Total Critical Care Time (in minutes): 35 Critical Care Statement: The care of this patient involved high complexity decision making to prevent further life threatening deterioration of the patient 's condition and/or to evaluate & treat vital organ system(s) failure or risk of failure. - Discharge Referral Referred to [facility] Med P.C.: No
[2018-06-15] MEDS: PANTOPRAZOLE SODIUM 40 MG VIAL IVPUSH SCH (09:51)
[2018-06-15] MEDS: MUPIROCIN 2% TOPICAL OINTMENT FOR DECOLONIZATION NS SCH ×2 (09:51→21:11)
[2018-06-15] MEDS ORDERED: PNEUMOC 13-VAL CONJ-DIP CRM/PF 0.5 ML DISP.SYRIN IM ONE (10:00)
[2018-06-15] MEDS ORDERED: SODIUM CHLORIDE 1,000 ML IV SCH (11:49)
--- NOTE | 2018-06-15 12:00 | PN ---
Teaching Attending Note Name of Resident: Will Boyle ATTENDING PHYSICIAN STATEMENT I saw and evaluated the patient. I reviewed the resident's note and discussed the case with the resident. I agree with the resident's findings and plan as documented. SUBJECTIVE: Pt seen and examined in the ICU. s/p ex-lap/Robb's Procedure. Remains intubated. Sedation turned off, pt arousable and following commands. OBJECTIVE: Vital Signs Period Temp Pulse Resp BP Sys/Mars Pulse Ox Last 24 Hr 97.5 F-98.5 F 82-98 9-16 90-144/53-87 94-100 Intake & Output 06/12/18 06/13/18 06/14/18 06/15/18 23:59 23:59 23:59 23:59 Intake Total 4700 1520 Output Total 350 545 Balance 4350 975 Weight 70 kg 72.717 kg Gen: intubated, arousable Heart: RRR Lung: decreased breath sounds at the bases Abd: soft, +ostomy pink, dressings dry Ext: no edema CBC, BMP 06/15/18 05:30 06/15/18 05:30 Active Medications Acetaminophen (Ofirmev Injection -) 1,000 mg IVPB Q6H PRN PRN Reason: PAIN LEVEL 4 - 6 Albuterol/Ipratropium (Duoneb -) 1 amp NEB RQID CASS Last Admin: 06/15/18 11:46 Dose: 1 amp Chlorhexidine Gluconate (Hibiclens For Decolonization -) 1 applic TP HS CASS Last Admin: 06/14/18 22:46 Dose: 1 applic Lorazepam 40 mg/ Dextrose 120 mls @ 6 mls/hr IVPB TITR CASS; Protocol Last Titration: 06/15/18 07:00 Dose: 0 mg/hr, 0 mls/hr Piperacillin Sod/Tazobactam (Sod 4.5 gm/ Dextrose) 100 mls @ 200 mls/hr IVPB Q6H-IV CASS; Protocol Propofol (Diprivan -) 1,000,000 mcg in 100 mls @ 2.1 mls/hr IVPB TITR CASS; Protocol Last Titration: 06/15/18 07:00 Dose: 0 mcg/kg/min, 0 mls/hr Fentanyl 500 mcg/ Dextrose 100 mls @ 0.02 mls/hr IVPB TITR CASS; Protocol Last Admin: 06/14/18 18:50 Dose: 25 mcg/hr, 5 mls/hr Sodium Chloride (Normal Saline -) 1,000 mls @ 150 mls/hr IV ASDIR [facility] Last Admin: 06/15/18 11:53 Dose: 150 mls/hr Mupirocin (Bactroban Ointment (For Decolonization) -) 1 applic NS BID [facility] Stop: 06/19/18 21:59 Last Admin: 06/15/18 09:51 Dose: 1 applic Ondansetron HCl (Zofran Injection) 4 mg IVPB Q8H PRN PRN Reason: NAUSEA Ondansetron HCl (Zofran Injection) 4 mg IVPUSH Q6H PRN PRN Reason: NAUSEA AND/OR VOMITING Pantoprazole Sodium (Protonix Iv) 40 mg IVPUSH DAILY [facility] Last Admin: 06/15/18 09:51 Dose: 40 mg ASSESSMENT AND PLAN: Perforated Sigmoid Colon s/p ex-lap/Robb's Procedure r/o Peritonitis Sepsis Lactic Acidosis Acute Kidney Injury Diverticulosis - continue antibiotics - f/u cultures - IVF - monitor urine output, creatinine - pain control - hold sedation - spontaneous breathing trials as tolerated - extubate when more awake - monitor for return of bowel function - DVT prophylaxis - continue ICU monitoring critical care time spent in reviewing chart, evaluating patient and formulating plan 35 min
--- NOTE | 2018-06-15 12:15 | PN ---
Progress Note (short form) - Note Progress Note: Anesthesia Post op Pt seen and examined S: Sedated and intubated Vital Signs Temperature 97.9 F 06/15/18 08:00 Pulse Rate 88 06/15/18 08:42 Respiratory Rate 10 06/15/18 11:44 Blood Pressure 108/65 06/15/18 08:00 O2 Sat by Pulse Oximetry (%) 94 L 06/15/18 11:44 CBC, BMP 06/15/18 05:30 06/15/18 05:30 O: A/P: Current Active Problems Diverticula of colon (Acute) Inguinal hernia bilateral, non-recurrent (Acute) Lactic acid acidosis (Acute) Perforated sigmoid colon (Acute) Respiratory failure (Acute) s/p nobles's procedure condition guarded Continue current care Ricky Monterroso MD
--- NOTE | 2018-06-15 12:49 | PN ---
Progress Note (short form) - Note Progress Note: ID CONSULT DICTATED POD#1 [facility] PROCEDURE FOR PERFORATED SIGMOID COLON LEUKOCYTOSIS/LACTIC ACIDOSIS AWAIT C/S CONTINUE EMPIRIC ZOSYN
[2018-06-15 13:36] LABS: ANISOCYTOSIS 1+; MACROCYTOSIS 1+; PLATELET ESTIMATE NORMAL
--- NOTE | 2018-06-15 13:44 | PN ---
Teaching Attending Note Name of Resident: Dayron Avery ATTENDING PHYSICIAN STATEMENT I saw and evaluated the patient. I reviewed the resident's note and discussed the case with the resident. I agree with the resident's findings and plan as documented. SUBJECTIVE: Unable to obtain, patient intubated and sedated OBJECTIVE: Last Vital Signs Temp Pulse Resp BP Pulse Ox 36.6 C 92 H 12 95/52 L 94 L 06/15/18 12:00 06/15/18 12:00 06/15/18 13:38 06/15/18 12:00 06/15/18 11:44 Gen: sedated Pulm: intubated, mechanically ventilated, ctab w/o w/r/r CV: rrr w/o m/r/g Abd: hypoactive bs, s/nt/nd, colostomy bag in place Ext: no c/c/e CBC, BMP 06/15/18 05:30 06/15/18 05:30 ASSESSMENT AND PLAN: (1) Perforated sigmoid colon Assessment/Plan: -s/p resection with colostomy bag placed -continue zosyn per ID Code(s): K63.1 - PERFORATION OF INTESTINE (NONTRAUMATIC) (2) Respiratory failure Assessment/Plan: -ICU team managing -currently ventilated -wean as tolerated Code(s): J96.90 - RESPIRATORY FAILURE, UNSP, UNSP W HYPOXIA OR HYPERCAPNIA Qualifiers: Chronicity: acute Respiratory failure complication: hypoxia Qualified Code(s): J96.01 - Acute respiratory failure with hypoxia (3) Lactic acid acidosis Assessment/Plan: -resolved Code(s): E87.2 - ACIDOSIS Problem List - Problems (1) Perforated sigmoid colon Code(s): K63.1 - PERFORATION OF INTESTINE (NONTRAUMATIC) (2) Respiratory failure Code(s): J96.90 - RESPIRATORY FAILURE, UNSP, UNSP W HYPOXIA OR HYPERCAPNIA Qualifiers: Chronicity: acute Respiratory failure complication: hypoxia Qualified Code(s): J96.01 - Acute respiratory failure with hypoxia (3) Lactic acid acidosis Code(s): E87.2 - ACIDOSIS
[2018-06-15] MEDS ORDERED: ALBUTEROL SO4 0.083% IH SOL 2.5 MG/3 ML VIAL.NEB. NEB PRN (14:33)
[2018-06-15] MEDS ORDERED: PIPERACILLIN/TAZOB 4.5 GM 4.5 GM in DEXTROSE 5%-WATER 100 ML IVPB SCH (15:00)
[2018-06-15] MEDS ORDERED: ACETYLCYSTEINE 20% 200MG/ML 30 ML VIAL *FOR ORAL / INH USE ONLY NEB ONE (15:00)
[2018-06-15] MEDS ORDERED: ACETYLCYSTEINE 20% 200MG/ML 4 ML VIAL *FOR ORAL / INH USE ONLY NEB ONE (15:00)
[2018-06-15 15:21] LABS: ALLENS TEST POSITIVE; ARTERIAL BLD GAS O2 SATURATION 94.8 % (90-98.9); ARTERIAL BLOOD GAS PO2 88.7 mmHg (70-100)
--- NOTE | 2018-06-15 15:22 | CONS ---
DATE OF CONSULTATION: DATE OF DICTATION: 06/15/2018 HISTORY OF PRESENT ILLNESS: The patient is a 77-year-old male who is evaluated for possible peritonitis. The patient was undergoing a routine colonoscopy when he developed a perforation of the sigmoid colon. The patient developed abdominal distention and hypoxemia. He required intubation. He was transferred to the emergency room. Patient was seen in consultation by Surgery. He was taken to the operating room where an exploratory laparotomy and Otis procedure were performed. At the present time he is in the ICU postoperative day number 1. His course has been complicated by elevated white blood cell count. Cultures were obtained and he was empirically treated with Zosyn. Patient is sedated on the ventilator, unable to offer any additional history. PAST MEDICAL HISTORY: Positive for diverticulosis and hyperlipidemia. ALLERGIES: No known allergies. MEDICATIONS: Aspirin, vitamin D. PAST SURGICAL HISTORY: Status post hemorrhoidectomy and hernia repair. SOCIAL HISTORY: Lives at home. Resides in the community. No documented smoking history. SYSTEMS REVIEW: Neurologic: No loss of consciousness, seizure activity, focal weakness. Cardiac: Negative chest pain or palpitations. Respiratory: Negative cough or sputum production. Gastrointestinal: As per HPI. Genitourinary: Negative for urinary tract infection. LABORATORY DATA: White count 13.2, hematocrit 43.3, platelet count 196. BUN 14, creatinine 1.2. Urinalysis: White cells 2. Lactic acid 2.3. Cultures pending. PHYSICAL EXAMINATION:General: He is sedated on the ventilator. Vital Signs: Temperature 97.9, blood pressure 108/65, pulse 88, regular, respirations 12 per minute. HEENT: Sclerae are anicteric. Patient is orally intubated. Cardiac: Heart sounds S1, S2. Lungs: Air entry bilaterally. Abdomen: Distended. There is a colostomy and a [place] drain with serosanguineous drainage. Extremities: Negative for edema. IMPRESSION: 1. Postoperative day number 1 Otis procedure for perforated sigmoid colon. 2 Leukocytosis/lactic acidosis, rule out sepsis. RECOMMENDATIONS: Await culture results. Continue empiric coverage of bowel candace with Zosyn. ICU monitoring. Thank you for the kind referral. JULIANNE POOL M.D. [id number]
--- NOTE | 2018-06-15 15:54 | PN ---
Progress Note (short form) - Note Progress Note: 77yo M s/p ex-lap and Robb's procedure, pt seen and examined at bedside. Pt still intubated, but is arousable. No acute events overnight. Last Vital Signs Temp Pulse Resp BP Pulse Ox 97.9 F 98 H 16 104/64 98 06/15/18 12:00 06/15/18 14:00 06/15/18 14:00 06/15/18 14:00 06/15/18 14:32 CBC, BMP 06/15/18 05:30 06/15/18 05:30 PE: Gen: A&O x 3 Resp: breathing comfortably Abd: soft, mild distension, incision clean with serous drainage, no erythema. Colostomy has bloody discharge. Drain in place with serosanguinous drainage. Problem List - Problems (1) Diverticula of colon Assessment/Plan: Plan -plan to extubate later today. -continue NPO, IVF, abx -critical care as per ICU Pt seen and examined by Dr. rTipathi who agrees with plan Code(s): K57.30 - DVRTCLOS OF LG INT W/O PERFORATION OR ABSCESS W/O BLEEDING
[2018-06-15] MEDS ORDERED: SODIUM CHLORIDE 500 ML IV STA ×3 (16:59→21:45)
--- NOTE | 2018-06-15 17:01 | PN ---
Physical Exam: SUBJECTIVE: Patient seen and examined Pt extubated spo2 97% sleeping , snoring , pr 121 bp 109/57 OBJECTIVE: Vital Signs Period Temp Pulse Resp BP Sys/Mars Pulse Ox Last 24 Hr 97.5 F-98.5 F 82-125 9-18 90-144/52-87 94-100 GENERAL: pt sleeping snoring, responds to pain stimuli HEAD: Normal with no signs of trauma. LUNGS: b/l air entry present, coarse breathing, on nasal canula 2L HEART: Regular rate and rhythm, tachycardia ABDOMEN: Soft, dressing present, colostomy in situ pink in color, no air in bag EXTREMITIES: 2+ pulses, warm, well-perfused, no edema. PSYCH: Normal mood, SKIN: Warm, dry, Laboratory Results - last 24 hr 06/14/18 06/15/18 06/15/18 21:30 01:17 05:30 WBC 13.2 H RBC 4.53 Hgb 14.7 Hct 43.3 MCV 95.6 MCH 32.5 MCHC 34.0 RDW 13.3 Plt Count 196 D MPV 8.3 Absolute Neuts (auto) 12.1 H Neutrophils % 91.8 H D Neutrophils % (Manual) 72.0 Band Neutrophils % 19.0 Lymphocytes % 3.3 L D Lymphocytes % (Manual) 2.0 L Monocytes % 4.9 Monocytes % (Manual) 5 Eosinophils % 0.0 D Eosinophils % (Manual) 0.0 Basophils % 0.0 Basophils % (Manual) 0.0 Myelocytes % (Man) 0 Promyelocytes % (Man) 0 Blast Cells % (Manual) 0 Nucleated RBC % 0 Metamyelocytes 0 Hypochromia 0 Platelet Estimate Normal Polychromasia 0 Poikilocytosis 0 Anisocytosis 1+ Microcytosis 0 Macrocytosis 1+ Anticoagulation Therapy Puncture Site ABG pH ABG pCO2 at Pt Temp ABG pO2 at Pt Temp ABG HCO3 ABG O2 Sat (Measured) ABG O2 Content ABG Base Excess Sha Test O2 Delivery Device Oxygen Flow Rate Vent Mode Vent Rate Mechanical Rate Pressure Support Vent Sodium Potassium Chloride Carbon Dioxide Anion Gap BUN Creatinine Creat Clearance w eGFR POC Glucometer 157 Random Glucose Lactic Acid 2.0 Calcium Phosphorus Magnesium Total Bilirubin AST ALT Alkaline Phosphatase Creatine Kinase Troponin I Total Protein Albumin Triglycerides Cholesterol Total LDL Cholesterol HDL Cholesterol 03/07/19 03/07/19 03/07/19 05:30 05:30 05:30 WBC RBC Hgb Hct MCV MCH MCHC RDW Plt Count MPV Absolute Neuts (auto) Neutrophils % Neutrophils % (Manual) Band Neutrophils % Lymphocytes % Lymphocytes % (Manual) Monocytes % Monocytes % (Manual) Eosinophils % Eosinophils % (Manual) Basophils % Basophils % (Manual) Myelocytes % (Man) Promyelocytes % (Man) Blast Cells % (Manual) Nucleated RBC % Metamyelocytes Hypochromia Platelet Estimate Polychromasia Poikilocytosis Anisocytosis Microcytosis Macrocytosis Anticoagulation Therapy Puncture Site ABG pH ABG pCO2 at Pt Temp ABG pO2 at Pt Temp ABG HCO3 ABG O2 Sat (Measured) ABG O2 Content ABG Base Excess Sha Test O2 Delivery Device Oxygen Flow Rate Vent Mode Vent Rate Mechanical Rate Pressure Support Vent Sodium 140 Potassium 4.2 Chloride 108 H Carbon Dioxide 23 Anion Gap 9 BUN 14 Creatinine 1.2 Creat Clearance w eGFR 59.02 POC Glucometer Random Glucose 123 H Lactic Acid 2.3 H* Calcium 7.6 L Phosphorus 3.8 Magnesium 1.6 L Total Bilirubin 1.8 H AST 17 ALT 22 Alkaline Phosphatase 50 Creatine Kinase 119 Troponin I < 0.02 Total Protein 5.2 L Albumin 2.5 L Triglycerides 52 Cholesterol 134 Total LDL Cholesterol 67 HDL Cholesterol 61 H 06/15/18 06/15/18 06/15/18 06:23 11:58 15:07 WBC RBC Hgb Hct MCV MCH MCHC RDW Plt Count MPV Absolute Neuts (auto) Neutrophils % Neutrophils % (Manual) Band Neutrophils % Lymphocytes % Lymphocytes % (Manual) Monocytes % Monocytes % (Manual) Eosinophils % Eosinophils % (Manual) Basophils % Basophils % (Manual) Myelocytes % (Man) Promyelocytes % (Man) Blast Cells % (Manual) Nucleated RBC % Metamyelocytes Hypochromia Platelet Estimate Polychromasia Poikilocytosis Anisocytosis Microcytosis Macrocytosis Anticoagulation Therapy No Result Required. Puncture Site Left radial ABG pH 7.30 L ABG pCO2 at Pt Temp 47.0 H ABG pO2 at Pt Temp 88.7 ABG HCO3 24.3 ABG O2 Sat (Measured) 94.8 ABG O2 Content 19.2 ABG Base Excess No Result Required. Sha Test Positive O2 Delivery Device No Result Required. Oxygen Flow Rate Yes Vent Mode No Result Required. Vent Rate No Result Required. Mechanical Rate No Result Required. Pressure Support Vent No Result Required. Sodium Potassium Chloride Carbon Dioxide Anion Gap BUN Creatinine Creat Clearance w eGFR POC Glucometer 117 105 Random Glucose Lactic Acid Calcium Phosphorus Magnesium Total Bilirubin AST ALT Alkaline Phosphatase Creatine Kinase Troponin I Total Protein Albumin Triglycerides Cholesterol Total LDL Cholesterol HDL Cholesterol Active Medications Generic Name Dose Route Start Last Admin Trade Name Freq PRN Reason Stop Dose Admin Acetaminophen 1,000 mg 06/14/18 12:14 Ofirmev Injection - IVPB Q6H PRN PAIN LEVEL 4 - 6 Albuterol Sulfate 1 amp 06/15/18 14:33 06/15/18 16:21 Ventolin 0.083% Nebulizer Soln - NEB 1 amp Q4H PRN Administration SHORT OF BREATH/WHEEZING Albuterol/Ipratropium 1 amp 06/14/18 16:00 06/15/18 16:21 Duoneb - NEB Not Given RQID CASS Chlorhexidine Gluconate 1 applic 06/14/18 22:00 06/14/18 22:46 Hibiclens For Decolonization - TP 1 applic HS CASS Administration Lorazepam 40 mg/ Dextrose 120 mls @ 6 mls/hr 06/14/18 11:00 06/15/18 15:58 IVPB Not Given TITR CASS Protocol 2 MG/HR Propofol 1,000,000 mcg in 100 mls @ 2.1 mls/hr 06/14/18 18:00 06/15/18 07:00 Diprivan - IVPB 0 mcg/kg/min TITR CASS 0 mls/hr Titration Protocol 5 MCG/KG/MIN Fentanyl 500 mcg/ Dextrose 100 mls @ 0.02 mls/hr 06/14/18 18:00 06/14/18 18: 50 IVPB 25 mcg/hr TITR CASS 5 mls/hr Administration Protocol 0.1 MCG/HR Sodium Chloride 1,000 mls @ 150 mls/hr 06/15/18 11:49 06/15/18 11:53 Normal Saline - IV 150 mls/hr ASDIR CASS Administration Piperacillin Sod/Tazobactam 100 mls @ 200 mls/hr 06/15/18 15:00 06/15/18 15: 58 Sod 4.5 gm/ Dextrose IVPB 200 mls/hr Q6H-IV CASS Administration Protocol Mupirocin 1 applic 06/14/18 22:00 06/15/18 09:51 Bactroban Ointment (For Decolonization) - NS 06/19/18 21:59 1 applic BID CASS Administration Ondansetron HCl 4 mg 06/14/18 12:13 Zofran Injection IVPB Q8H PRN NAUSEA Ondansetron HCl 4 mg 06/14/18 15:26 Zofran Injection IVPUSH Q6H PRN NAUSEA AND/OR VOMITING Pantoprazole Sodium 40 mg 06/15/18 10:00 06/15/18 09:51 Protonix Iv IVPUSH 40 mg DAILY CASS Administration Microbiology 06/14/18 11:33 Blood Culture - Preliminary Blood - Peripheral Venous Pending Organism 06/14/18 11:33 Blood Culture - Preliminary Blood - Peripheral Venous NO GROWTH OBTAINED AFTER 24 HOURS, INCUBATION TO CONTINUE FOR 4 DAYS. 06/14/18 11:42 Urine Culture - Final Urine - Urine Zambrano NO GROWTH OBTAINED ASSESSMENT/PLAN: perforation peritonitis. sigmoid perforation s/p exploratory lapatrotomy with hartmens procedure 06/14/18 IV fluid monitor intake/ output: maintain UO of 0.5 to 1ml/kg/hr Monitor vitals, keep map> 65 IV antibiotics on zosyn ID on case surgery on case blood culture pending organism pain control on iv acetaminophen lactic acid 3.6 -- give bolus 500ml and check the response of pr and urine output with it. If pt looks behind fluid after bolus give more bolus with repeated auscultation of chest. Try to avoid pulmonary edema. use promethazine for nausea/ vomiting as pt has qtc prolongation. monitor ng output acute respiratory failure likley from perforation peritonitis pt extubated on 2 L nc 06/15/18 pt sleepy neck flexed. responds to pain stimuli keep head end elevated. aspiration precautions frequent suction. pt heart rate is up since extubation-- could be because of fluid deficit but co2 retention can not be ruled out. get abg. stop all sedations fluid : ns 150ml/hr electrolyte: repeat in am nutrition: npo for now dvt pro: scd gi pro: protonix dispo: icu Visit type - Emergency Visit Emergency Visit: Yes ED Registration Date: 06/14/18 Care time: The patient presented to the Emergency Department on the above date and was hospitalized for further evaluation of their emergent condition. - New Patient This patient is new to me today: No - Critical Care Critical Care patient: Yes Total Critical Care Time (in minutes): 45 Critical Care Statement: The care of this patient involved high complexity decision making to prevent further life threatening deterioration of the patient 's condition and/or to evaluate & treat vital organ system(s) failure or risk of failure.
[2018-06-15] MEDS ORDERED: PROMETHAZINE HCL 25 MG/1 ML VIAL IVPB PRN (17:11)
[2018-06-15 18:03] LABS: ARTERIAL BLD GAS O2 SATURATION 95.9 % (90-98.9); ARTERIAL BLOOD GAS PCO2 39.8 mmHg (35-45); ARTERIAL BLOOD GAS PO2 81.7 mmHg (70-100); ARTERIAL BLOOD GAS pH 7.39 (7.35-7.45)
[2018-06-15 18:05] LABS: ALLENS TEST POSITIVE
[2018-06-15] MEDS: ACETAMINOPHEN 1000 MG/100 ML VIAL (NON FORMULARY) IVPB PRN (18:46)
[2018-06-15] MEDS ORDERED: PT OWN MED DRAWER 7, Y5N ONE (21:05)
[2018-06-15] MEDS: CHLORHEXIDINE GLUCONATE 4% CLEANSER FOR DECOLONIZATION TP SCH (21:11)
[2018-06-16] MEDS: ACETAMINOPHEN 1000 MG/100 ML VIAL (NON FORMULARY) IVPB PRN ×2 (00:43→13:48)
[2018-06-16] MEDS: PIPERACILLIN/TAZOB 4.5 GM 4.5 GM in DEXTROSE 5%-WATER 100 ML IVPB SCH ×4 (02:08→21:00)
[2018-06-16 06:05] LABS: HEMOGLOBIN 12.6 GM/dL (11.7-16.9); MCH 32.5 pg (25.7-33.7); MCHC 34.1 g/dl (32.0-35.9); MEAN CELL VOLUME 95.4 fl (80-96); MEAN PLT VOLUME 8.5 fl (7.5-11.1); PLATELET COUNT 169 K/MM3 (134-434); RBC 3.88 M/mm3 (4.00-5.60); RDW 13.8 % (11.9-15.9)
[2018-06-16 06:48] LABS: ALBUMIN 2.2 g/dl (3.4-5.0); ALK PHOS 52 U/L (45-117); ANION GAP 5 MMOL/L (8-16); BILIRUBIN,TOTAL 1.1 mg/dL (0.2-1); BLOOD UREA NITROGEN 12 mg/dL (7-18); CALCIUM 7.5 mg/dL (8.5-10.1); CHLORIDE 111 mmol/L (98-107); CO2 25 mmol/L (21-32); CREATININE 1.1 mg/dL (0.55-1.3); GLUCOSE,RANDOM 108 mg/dL (74-106); MAGNESIUM 1.8 mg/dL (1.8-2.4); PHOSPHOROUS 1.9 mg/dL (2.5-4.9); POTASSIUM 3.4 mmol/L (3.5-5.1); SGOT/AST 29 U/L (15-37); SGPT/ALT 21 U/L (13-61); SODIUM 141 mmol/L (136-145); TOT PROT 4.8 g/dl (6.4-8.2)
--- NOTE | 2018-06-16 07:24 | PN ---
Physical Exam: SUBJECTIVE: Patient seen and examined at bedside this morning. He was extubated yesterday afternoon, and is saturating well on 3L nasal canula. He remains sleepy, and is arrousable to sternal rub. OBJECTIVE: Vital Signs Period Temp Pulse Resp BP Sys/Mars Pulse Ox Last 24 Hr 97.8 F-98.4 F 88-130 10-22 95-144/47-73 94-100 GENERAL: Patient is sleepy, saturating well on nasal canla, off sedation. HEAD: Normocephalic, atrauamtic. EYES: Pupils equal, round and reactive to light, sclera anicteric, conjunctiva clear. EARS, NOSE, THROAT: Oropharynx clear without exudates. Dry mucous membranes. NECK: Supple without lymphadenopathy. LUNGS: Good inspiratory effort, rhonchi auscultated bilaterally. No wheezes, and no crackles. HEART: Regular rate and rhythm, normal S1 and S2 without murmur, rub or gallop. ABDOMEN: Soft. Hypoactive bowel sounds X4 quadrants. No hepatomegaly or splenomegaly palpated or percussed. Surgical site bandaged clean, dry, intact. BETTY drain draining sanguinous discharge. Colostomy bag with serosanguinous drainage. UPPER EXTREMITIES: 2+ radial pulses bilaterally, warm, well-perfused. Cap refill <2 seconds. LOWER EXTREMITIES: 2+ dorsalis pedis pulses, warm, well-perfused. No peripheral edema bilateral lower extremities. NEUROLOGICAL: Patient is sleepy, off sedation. Symmetrical muscle tone bilateral upper and lower extremities. Laboratory Results - last 24 hr 06/15/18 06/15/18 06/15/18 05:30 11:58 15:00 WBC 13.2 H RBC 4.53 Hgb 14.7 Hct 43.3 MCV 95.6 MCH 32.5 MCHC 34.0 RDW 13.3 Plt Count 196 D MPV 8.3 Absolute Neuts (auto) 12.1 H Neutrophils % 91.8 H D Neutrophils % (Manual) 72.0 Band Neutrophils % 19.0 Lymphocytes % 3.3 L D Lymphocytes % (Manual) 2.0 L Monocytes % 4.9 Monocytes % (Manual) 5 Eosinophils % 0.0 D Eosinophils % (Manual) 0.0 Basophils % 0.0 Basophils % (Manual) 0.0 Myelocytes % (Man) 0 Promyelocytes % (Man) 0 Blast Cells % (Manual) 0 Nucleated RBC % 0 Metamyelocytes 0 Hypochromia 0 Platelet Estimate Normal Polychromasia 0 Poikilocytosis 0 Anisocytosis 1+ Microcytosis 0 Macrocytosis 1+ Anticoagulation Therapy Puncture Site ABG pH ABG pCO2 at Pt Temp ABG pO2 at Pt Temp ABG HCO3 ABG O2 Sat (Measured) ABG O2 Content ABG Base Excess Sha Test O2 Delivery Device Oxygen Flow Rate Vent Mode Vent Rate Mechanical Rate Pressure Support Vent Sodium Potassium Chloride Carbon Dioxide Anion Gap BUN Creatinine Creat Clearance w eGFR POC Glucometer 105 Random Glucose Lactic Acid 3.6 H* Calcium Phosphorus Magnesium Total Bilirubin AST ALT Alkaline Phosphatase Total Protein Albumin 06/15/18 06/15/18 06/15/18 15:07 16:57 17:49 WBC RBC Hgb Hct MCV MCH MCHC RDW Plt Count MPV Absolute Neuts (auto) Neutrophils % Neutrophils % (Manual) Band Neutrophils % Lymphocytes % Lymphocytes % (Manual) Monocytes % Monocytes % (Manual) Eosinophils % Eosinophils % (Manual) Basophils % Basophils % (Manual) Myelocytes % (Man) Promyelocytes % (Man) Blast Cells % (Manual) Nucleated RBC % Metamyelocytes Hypochromia Platelet Estimate Polychromasia Poikilocytosis Anisocytosis Microcytosis Macrocytosis Anticoagulation Therapy No Result Required. No Result Required. Puncture Site Left radial Left radial ABG pH 7.30 L 7.39 ABG pCO2 at Pt Temp 47.0 H 39.8 ABG pO2 at Pt Temp 88.7 81.7 ABG HCO3 24.3 23.3 ABG O2 Sat (Measured) 94.8 95.9 ABG O2 Content 19.2 18.3 ABG Base Excess No Result Required. -1.0 Sha Test Positive Positive O2 Delivery Device No Result Required. Nasel Oxygen Flow Rate Yes 2 Vent Mode No Result Required. No Result Required. Vent Rate No Result Required. No Result Required. Mechanical Rate No Result Required. No Result Required. Pressure Support Vent No Result Required. No Result Required. Sodium Potassium Chloride Carbon Dioxide Anion Gap BUN Creatinine Creat Clearance w eGFR POC Glucometer 116 Random Glucose Lactic Acid Calcium Phosphorus Magnesium Total Bilirubin AST ALT Alkaline Phosphatase Total Protein Albumin 06/15/18 06/15/18 06/16/18 20:00 23:52 05:30 WBC 12.0 H RBC 3.88 L Hgb 12.6 Hct 37.0 MCV 95.4 MCH 32.5 MCHC 34.1 RDW 13.8 Plt Count 169 MPV 8.5 Absolute Neuts (auto) Neutrophils % Neutrophils % (Manual) Band Neutrophils % Lymphocytes % Lymphocytes % (Manual) Monocytes % Monocytes % (Manual) Eosinophils % Eosinophils % (Manual) Basophils % Basophils % (Manual) Myelocytes % (Man) Promyelocytes % (Man) Blast Cells % (Manual) Nucleated RBC % Metamyelocytes Hypochromia Platelet Estimate Polychromasia Poikilocytosis Anisocytosis Microcytosis Macrocytosis Anticoagulation Therapy Puncture Site ABG pH ABG pCO2 at Pt Temp ABG pO2 at Pt Temp ABG HCO3 ABG O2 Sat (Measured) ABG O2 Content ABG Base Excess Sha Test O2 Delivery Device Oxygen Flow Rate Vent Mode Vent Rate Mechanical Rate Pressure Support Vent Sodium Potassium Chloride Carbon Dioxide Anion Gap BUN Creatinine Creat Clearance w eGFR POC Glucometer 116 Random Glucose Lactic Acid 3.1 H* Calcium Phosphorus Magnesium Total Bilirubin AST ALT Alkaline Phosphatase Total Protein Albumin 06/16/18 06/16/18 05:30 06:11 WBC RBC Hgb Hct MCV MCH MCHC RDW Plt Count MPV Absolute Neuts (auto) Neutrophils % Neutrophils % (Manual) Band Neutrophils % Lymphocytes % Lymphocytes % (Manual) Monocytes % Monocytes % (Manual) Eosinophils % Eosinophils % (Manual) Basophils % Basophils % (Manual) Myelocytes % (Man) Promyelocytes % (Man) Blast Cells % (Manual) Nucleated RBC % Metamyelocytes Hypochromia Platelet Estimate Polychromasia Poikilocytosis Anisocytosis Microcytosis Macrocytosis Anticoagulation Therapy Puncture Site ABG pH ABG pCO2 at Pt Temp ABG pO2 at Pt Temp ABG HCO3 ABG O2 Sat (Measured) ABG O2 Content ABG Base Excess Sha Test O2 Delivery Device Oxygen Flow Rate Vent Mode Vent Rate Mechanical Rate Pressure Support Vent Sodium 141 Potassium 3.4 L Chloride 111 H Carbon Dioxide 25 Anion Gap 5 L BUN 12 Creatinine 1.1 Creat Clearance w eGFR > 60 POC Glucometer 113 Random Glucose 108 H Lactic Acid Calcium 7.5 L Phosphorus 1.9 L Magnesium 1.8 Total Bilirubin 1.1 H AST 29 ALT 21 Alkaline Phosphatase 52 Total Protein 4.8 L Albumin 2.2 L Active Medications Generic Name Dose Route Start Last Admin Trade Name Freq PRN Reason Stop Dose Admin Acetaminophen 1,000 mg 06/14/18 12:14 03/08/19 00:43 Ofirmev Injection - IVPB 1,000 mg Q6H PRN Administration PAIN LEVEL 4 - 6 Albuterol Sulfate 1 amp 06/15/18 14:33 06/15/18 16:21 Ventolin 0.083% Nebulizer Soln - NEB 1 amp Q4H PRN Administration SHORT OF BREATH/WHEEZING Albuterol/Ipratropium 1 amp 06/14/18 16:00 06/15/18 20:10 Duoneb - NEB 1 amp RQID CASS Administration Chlorhexidine Gluconate 1 applic 06/14/18 22:00 06/15/18 21:11 Hibiclens For Decolonization - TP 1 applic HS CASS Administration Piperacillin Sod/Tazobactam 100 mls @ 200 mls/hr 06/15/18 15:00 06/16/18 02: 08 Sod 4.5 gm/ Dextrose IVPB 200 mls/hr Q6H-IV CASS Administration Protocol Lactated Ringer's 1,000 ml in 1,000 mls @ 125 mls/hr 06/16/18 07:30 Lactated Ringers Solution IV ASDIR CASS Mupirocin 1 applic 06/14/18 22:00 06/15/18 21:11 Bactroban Ointment (For Decolonization) - NS 06/19/18 21:59 1 applic BID CASS Administration Pantoprazole Sodium 40 mg 06/15/18 10:00 06/15/18 09:51 Protonix Iv IVPUSH 40 mg DAILY CASS Administration Promethazine HCl 12.5 mg 06/15/18 17:11 Phenergan Injection - IVPB Q6H PRN NAUSEA AND/OR VOMITING ASSESSMENT/PLAN: Patient is a 77 year old male with history of diverticulosis, hemorrhoids (s/p hemorrhoidectomy), bilateral inguinal hernias, presented to [facility] emergency department after sigmoid colon perforation with screening colonoscopy. Admitted to ICU for postoperative management s/p exploratory laparotomy and Robb's procedure. Neurological -Patient is sleepy, off sedation. -Pain control with Ofirmev 1000mg IV Q6H PRN -Monitor for signs of mental status change Pulmonary -Patient is extubated, saturating well on 3L nasal caunla. -Chest radiograph shows bilateral efussions, suspicion for aspiration pneumonitis with right lower lobe developing infiltrate. -Maintain oxygen saturation greater than 90% Cardiovascular -Patient is normotensive. Currently not on any pressors -Maintain MAP greater than 65 -Monitor vital signs closely Gastrointestinal -Patient is POD #2 s/p Robb's procedure for bowel perforation during colonoscopy. -General surgery (Dr. Tripathi) recommendations appreciated -Gastroenterology (Dr. Bolton) recommendations appreciated -Lactic acid 2.6 -> 2.0 -> 2.3 -> 3.1. Will follow -Colostomy bag with sanguinous drainage -Protonix 40mg IV daily -NPO Renal -Patient urinating clear yellow urine with bedolla catheter -Monitor strict intake and output Infectious disease -Blood cultures cultures growing preliminary gram positive bacilli in chains -Follow urine cultures -ID consult (Dr. Schofield) appreciated -Zosyn 4.5 grams IV Q6H (day #2) Fluids, Electrolytes, Nutrition -Fluids: IV D5 Lactated Ringer's at 125mL/ hour -Electrolytes: Hypokalemia, hypophosphatemia -repleted. Follow CMP. Replete as necessary -Nutrition: NPO Lines, Tubes, Drains -Endotracheal intubation 03/06 -Nasogastric tube 03/06 -Colostomy bag 3/06 -BETTY drain 03/06 -Bedolla catheter 03/06 Prophylaxis -Heparin 5000u subq TID -Protonix 40mg IV daily Disposition: Continue care in ICU : Visit type - Emergency Visit Emergency Visit: Yes ED Registration Date: 06/14/18 Care time: The patient presented to the Emergency Department on the above date and was hospitalized for further evaluation of their emergent condition. - New Patient This patient is new to me today: No - Critical Care Critical Care patient: Yes Total Critical Care Time (in minutes): 37 Critical Care Statement: The care of this patient involved high complexity decision making to prevent further life threatening deterioration of the patient 's condition and/or to evaluate & treat vital organ system(s) failure or risk of failure. - Discharge Referral Referred to [facility] Med [facility] No
[2018-06-16] MEDS ORDERED: LACTATED RINGERS SOLUTION 1,000 ML/1,000 ML INFUS.BAG IV SCH (07:30)
[2018-06-16] MEDS: ALBUTEROL SO4 2.5/IPRATROPIUM 0.5 INH SOL 3 ML VIAL.NEB. NEB SCH ×4 (07:30→21:00)
--- NOTE | 2018-06-16 09:23 | PN ---
Progress Note (short form) - Note Progress Note: 77yo M s/p Exlap and Hartmans POD 2, pt seen and examined in ICU. Pt was extubated yesterday, but remains somnolent. Last Vital Signs Temp Pulse Resp BP Pulse Ox 98 F 114 H 15 144/73 97 06/16/18 06:00 06/16/18 06:00 06/16/18 06:00 06/16/18 06:00 06/15/18 21:00 CBC, BMP 06/16/18 05:30 06/16/18 05:30 PE Gen: Awake, somnolent Resp: breathing comfortably, some audible wheezes Abd: soft, mild distension, Incision dressing clean, no stool or air noted in colostomy, RLQ drain in place with serosanguinous drainage. Output: 90ml Problem List - Problems (1) Diverticula of colon Assessment/Plan: Plan: -continue NPO, until flatus or BM -medical work up of Altered mental status will continue to follow. Code(s): K57.30 - DVRTCLOS OF LG INT W/O PERFORATION OR ABSCESS W/O BLEEDING
[2018-06-16] MEDS ORDERED: DEXTROSE 5%-WATER 100 ML IVPB ONE ×3 (09:30→21:47)
[2018-06-16] MEDS ORDERED: PIPERACILLIN/TAZOBACTAM 4.5 GM VIAL IVPB ONE ×3 (09:30→21:46)
[2018-06-16] MEDS: PANTOPRAZOLE SODIUM 40 MG VIAL IVPUSH SCH (09:33)
[2018-06-16 09:51] LABS: ARTERIAL BLD GAS O2 SATURATION 95.1 % (90-98.9); ARTERIAL BLOOD GAS BASE EXCESS -0.6 meq/l (-2-2); ARTERIAL BLOOD GAS PCO2 40.7 mmHg (35-45); ARTERIAL BLOOD GAS PO2 75.1 mmHg (70-100); ARTERIAL BLOOD GAS pH 7.39 (7.35-7.45)
[2018-06-16 09:57] LABS: ALLENS TEST POSITIVE
[2018-06-16] MEDS: MUPIROCIN 2% TOPICAL OINTMENT FOR DECOLONIZATION NS SCH ×2 (10:23→22:58)
--- NOTE | 2018-06-16 11:12 | PN ---
Physical Exam: SUBJECTIVE: Patient seen and examined Pt still sleepy, snoring, barely opens his eyes on calling his name, moving all 4 limbs with pain full stimuli. OBJECTIVE: Vital Signs Period Temp Pulse Resp BP Sys/Mars Pulse Ox Last 24 Hr 97.8 F-98.4 F 92-130 10-22 95-144/47-73 94-98 GENERAL: pt sleeping snoring, responds to pain stimuli HEAD: Normal with no signs of trauma. LUNGS: b/l air entry present, coarse breathing increased, on duoneb treatment HEART: Regular rate and rhythm, tachycardia ABDOMEN: Soft, dressing present, colostomy in situ pink in color, no air in bag , distended, no BS EXTREMITIES: 2+ pulses, warm, well-perfused, no edema. arms swelling present PSYCH: Normal mood, SKIN: Warm, dry, Laboratory Results - last 24 hr 06/15/18 06/15/18 06/15/18 05:30 11:58 15:00 WBC RBC Hgb Hct MCV MCH MCHC RDW Plt Count MPV Neutrophils % (Manual) 72.0 Band Neutrophils % 19.0 Lymphocytes % (Manual) 2.0 L Monocytes % (Manual) 5 Eosinophils % (Manual) 0.0 Basophils % (Manual) 0.0 Myelocytes % (Man) 0 Promyelocytes % (Man) 0 Blast Cells % (Manual) 0 Metamyelocytes 0 Hypochromia 0 Platelet Estimate Normal Polychromasia 0 Poikilocytosis 0 Anisocytosis 1+ Microcytosis 0 Macrocytosis 1+ Anticoagulation Therapy Puncture Site ABG pH ABG pCO2 at Pt Temp ABG pO2 at Pt Temp ABG HCO3 ABG O2 Sat (Measured) ABG O2 Content ABG Base Excess Sha Test O2 Delivery Device Oxygen Flow Rate Vent Mode Vent Rate Mechanical Rate Pressure Support Vent Sodium Potassium Chloride Carbon Dioxide Anion Gap BUN Creatinine Creat Clearance w eGFR POC Glucometer 105 Random Glucose Lactic Acid 3.6 H* Calcium Phosphorus Magnesium Total Bilirubin AST ALT Alkaline Phosphatase Total Protein Albumin Ur Random Sodium Ur Random Potassium Ur Random Chloride 06/15/18 06/15/18 06/15/18 15:07 16:57 17:49 WBC RBC Hgb Hct MCV MCH MCHC RDW Plt Count MPV Neutrophils % (Manual) Band Neutrophils % Lymphocytes % (Manual) Monocytes % (Manual) Eosinophils % (Manual) Basophils % (Manual) Myelocytes % (Man) Promyelocytes % (Man) Blast Cells % (Manual) Metamyelocytes Hypochromia Platelet Estimate Polychromasia Poikilocytosis Anisocytosis Microcytosis Macrocytosis Anticoagulation Therapy No Result Required. No Result Required. Puncture Site Left radial Left radial ABG pH 7.30 L 7.39 ABG pCO2 at Pt Temp 47.0 H 39.8 ABG pO2 at Pt Temp 88.7 81.7 ABG HCO3 24.3 23.3 ABG O2 Sat (Measured) 94.8 95.9 ABG O2 Content 19.2 18.3 ABG Base Excess No Result Required. -1.0 Sha Test Positive Positive O2 Delivery Device No Result Required. Nasel Oxygen Flow Rate Yes 2 Vent Mode No Result Required. No Result Required. Vent Rate No Result Required. No Result Required. Mechanical Rate No Result Required. No Result Required. Pressure Support Vent No Result Required. No Result Required. Sodium Potassium Chloride Carbon Dioxide Anion Gap BUN Creatinine Creat Clearance w eGFR POC Glucometer 116 Random Glucose Lactic Acid Calcium Phosphorus Magnesium Total Bilirubin AST ALT Alkaline Phosphatase Total Protein Albumin Ur Random Sodium Ur Random Potassium Ur Random Chloride 06/15/18 06/15/18 06/16/18 20:00 23:52 05:30 WBC 12.0 H RBC 3.88 L Hgb 12.6 Hct 37.0 MCV 95.4 MCH 32.5 MCHC 34.1 RDW 13.8 Plt Count 169 MPV 8.5 Neutrophils % (Manual) Band Neutrophils % Lymphocytes % (Manual) Monocytes % (Manual) Eosinophils % (Manual) Basophils % (Manual) Myelocytes % (Man) Promyelocytes % (Man) Blast Cells % (Manual) Metamyelocytes Hypochromia Platelet Estimate Polychromasia Poikilocytosis Anisocytosis Microcytosis Macrocytosis Anticoagulation Therapy Puncture Site ABG pH ABG pCO2 at Pt Temp ABG pO2 at Pt Temp ABG HCO3 ABG O2 Sat (Measured) ABG O2 Content ABG Base Excess Sha Test O2 Delivery Device Oxygen Flow Rate Vent Mode Vent Rate Mechanical Rate Pressure Support Vent Sodium Potassium Chloride Carbon Dioxide Anion Gap BUN Creatinine Creat Clearance w eGFR POC Glucometer 116 Random Glucose Lactic Acid 3.1 H* Calcium Phosphorus Magnesium Total Bilirubin AST ALT Alkaline Phosphatase Total Protein Albumin Ur Random Sodium Ur Random Potassium Ur Random Chloride 03/08/19 03/08/19 03/08/19 05:30 06:11 07:00 WBC RBC Hgb Hct MCV MCH MCHC RDW Plt Count MPV Neutrophils % (Manual) Band Neutrophils % Lymphocytes % (Manual) Monocytes % (Manual) Eosinophils % (Manual) Basophils % (Manual) Myelocytes % (Man) Promyelocytes % (Man) Blast Cells % (Manual) Metamyelocytes Hypochromia Platelet Estimate Polychromasia Poikilocytosis Anisocytosis Microcytosis Macrocytosis Anticoagulation Therapy Puncture Site ABG pH ABG pCO2 at Pt Temp ABG pO2 at Pt Temp ABG HCO3 ABG O2 Sat (Measured) ABG O2 Content ABG Base Excess Sha Test O2 Delivery Device Oxygen Flow Rate Vent Mode Vent Rate Mechanical Rate Pressure Support Vent Sodium 141 Potassium 3.4 L Chloride 111 H Carbon Dioxide 25 Anion Gap 5 L BUN 12 Creatinine 1.1 Creat Clearance w eGFR > 60 POC Glucometer 113 Random Glucose 108 H Lactic Acid Calcium 7.5 L Phosphorus 1.9 L Magnesium 1.8 Total Bilirubin 1.1 H AST 29 ALT 21 Alkaline Phosphatase 52 Total Protein 4.8 L Albumin 2.2 L Ur Random Sodium 138 Ur Random Potassium 35.7 Ur Random Chloride 176 06/16/18 09:40 WBC RBC Hgb Hct MCV MCH MCHC RDW Plt Count MPV Neutrophils % (Manual) Band Neutrophils % Lymphocytes % (Manual) Monocytes % (Manual) Eosinophils % (Manual) Basophils % (Manual) Myelocytes % (Man) Promyelocytes % (Man) Blast Cells % (Manual) Metamyelocytes Hypochromia Platelet Estimate Polychromasia Poikilocytosis Anisocytosis Microcytosis Macrocytosis Anticoagulation Therapy No Result Required. Puncture Site Right radial ABG pH 7.39 ABG pCO2 at Pt Temp 40.7 ABG pO2 at Pt Temp 75.1 ABG HCO3 23.8 ABG O2 Sat (Measured) 95.1 ABG O2 Content 14.5 L ABG Base Excess -0.6 Sha Test Positive O2 Delivery Device No Result Required. Oxygen Flow Rate Yes Vent Mode No Result Required. Vent Rate No Result Required. Mechanical Rate No Result Required. Pressure Support Vent No Result Required. Sodium Potassium Chloride Carbon Dioxide Anion Gap BUN Creatinine Creat Clearance w eGFR POC Glucometer Random Glucose Lactic Acid Calcium Phosphorus Magnesium Total Bilirubin AST ALT Alkaline Phosphatase Total Protein Albumin Ur Random Sodium Ur Random Potassium Ur Random Chloride Active Medications Generic Name Dose Route Start Last Admin Trade Name Freq PRN Reason Stop Dose Admin Acetaminophen 1,000 mg 06/14/18 12:14 06/16/18 00:43 Ofirmev Injection - IVPB 1,000 mg Q6H PRN Administration PAIN LEVEL 4 - 6 Albuterol Sulfate 1 amp 06/15/18 14:33 06/15/18 16:21 Ventolin 0.083% Nebulizer Soln - NEB 1 amp Q4H PRN Administration SHORT OF BREATH/WHEEZING Albuterol/Ipratropium 1 amp 06/14/18 16:00 06/16/18 07:30 Duoneb - NEB 1 amp RQID C[facility] Administration Chlorhexidine Gluconate 1 applic 06/14/18 22:00 06/15/18 21:11 Hibiclens For Decolonization - TP 1 applic HS CASS Administration Piperacillin Sod/Tazobactam 100 mls @ 200 mls/hr 06/15/18 15:00 06/16/18 09: 33 Sod 4.5 gm/ Dextrose IVPB 200 mls/hr Q6H-IV C[facility] Administration Protocol Lactated Ringer's 1,000 ml in 1,000 mls @ 125 mls/hr 06/16/18 07:30 06/16/18 08:36 Lactated Ringers Solution IV 125 mls/hr ASDIR [facility] Administration Mupirocin 1 applic 06/14/18 22:00 06/16/18 10:23 Bactroban Ointment (For Decolonization) - NS 06/19/18 21:59 1 applic BID CASS Administration Pantoprazole Sodium 40 mg 06/15/18 10:00 06/16/18 09:33 Protonix Iv IVPUSH 40 mg DAILY C[facility] Administration Promethazine HCl 12.5 mg 06/15/18 17:11 Phenergan Injection - IVPB Q6H PRN NAUSEA AND/OR VOMITING Microbiology 06/14/18 11:33 Blood Culture - Preliminary Blood - Peripheral Venous Pending Organism 06/14/18 11:33 Blood Culture - Preliminary Blood - Peripheral Venous NO GROWTH OBTAINED AFTER 24 HOURS, INCUBATION TO CONTINUE FOR 4 DAYS. 06/14/18 11:42 Urine Culture - Final Urine - Urine Zambrano NO GROWTH OBTAINED Intake & Output 06/13/18 06/14/18 06/15/18 06/16/18 23:59 23:59 23:59 23:59 Intake Total 4700 5685 1150 Output Total 350 830 590 Balance 4350 4855 560 Weight 154 lb 5.177 oz 160 lb 5 oz 166 lb 1 oz ASSESSMENT/PLAN: perforation peritonitis. sigmoid perforation s/p exploratory lapatrotomy with hartmens procedure 06/14/18 IV fluid on LR 125 ml/hr, got couple of boluses monitor intake/ output: maintain UO of 0.5 to 1ml/kg/hr Monitor vitals, keep map> 65 IV antibiotics on zosyn ID on case surgery on case blood culture pending organism pain control on iv acetaminophen trend lactic acid use promethazine for nausea/ vomiting as pt has qtc prolongation. monitor ng output try to keep potassium around 4.5 acute respiratory failure likley from perforation peritonitis pt extubated on 06/15/18 pt sleepy neck extended responds to pain stimuli. off sedations since yesterday , moving all 4 limbs on pain stimuli. keep head end elevated. aspiration precautions frequent suction. cxr shows RLL infiltrate ? pneumonitis. Pt is afebrile and wbc are stable. May need deep suctioning as pt has poor cough effort fluid : lr 125 ml/hr electrolyte: replete electrolytes nutrition: npo for now dvt pro: scd gi pro: protonix dispo: icu Visit type - Emergency Visit Emergency Visit: Yes ED Registration Date: 06/14/18 Care time: The patient presented to the Emergency Department on the above date and was hospitalized for further evaluation of their emergent condition. - New Patient This patient is new to me today: No - Critical Care Critical Care patient: Yes Total Critical Care Time (in minutes): 45 Critical Care Statement: The care of this patient involved high complexity decision making to prevent further life threatening deterioration of the patient 's condition and/or to evaluate & treat vital organ system(s) failure or risk of failure.
[2018-06-16] MEDS ORDERED: LACTATED RINGERS SOLUTION 1,000 ML/1,000 ML INFUS.BAG IV STA (11:30)
--- NOTE | 2018-06-16 11:43 | PN ---
Teaching Attending Note Name of Resident: Will Boyle ATTENDING PHYSICIAN STATEMENT I saw and evaluated the patient. I reviewed the resident's note and discussed the case with the resident. I agree with the resident's findings and plan as documented. SUBJECTIVE: Patient seen and examined in the ICU. POD #2: ex-lap/Robb's procedure. Extubated but lethargic. Arousable. Congested cough. OBJECTIVE: Intake & Output 06/13/18 06/14/18 06/15/18 06/16/18 23:59 23:59 23:59 23:59 Intake Total 4700 5685 1150 Output Total 350 830 590 Balance 4350 4855 560 Weight 154 lb 5.177 oz 160 lb 5 oz 166 lb 1 oz Last Vital Signs Temp Pulse Resp BP Pulse Ox 98.0 F 106 H 17 107/53 L 97 06/16/18 10:00 06/16/18 10:00 06/16/18 10:00 06/16/18 10:00 06/16/18 09:00 Active Medications Acetaminophen (Ofirmev Injection -) 1,000 mg IVPB Q6H PRN PRN Reason: PAIN LEVEL 4 - 6 Last Admin: 06/16/18 00:43 Dose: 1,000 mg Albuterol Sulfate (Ventolin 0.083% Nebulizer Soln -) 1 amp NEB Q4H PRN PRN Reason: SHORT OF BREATH/WHEEZING Last Admin: 06/15/18 16:21 Dose: 1 amp Albuterol/Ipratropium (Duoneb -) 1 amp NEB RQID [facility] Last Admin: 06/16/18 11:21 Dose: 1 amp Chlorhexidine Gluconate (Hibiclens For Decolonization -) 1 applic TP HS CASS Last Admin: 06/15/18 21:11 Dose: 1 applic Heparin Sodium (Porcine) (Heparin -) 5,000 unit SQ TID C[facility] Piperacillin Sod/Tazobactam (Sod 4.5 gm/ Dextrose) 100 mls @ 200 mls/hr IVPB Q6H-IV CASS; Protocol Last Admin: 06/16/18 09:33 Dose: 200 mls/hr Lactated Ringer's (Lactated Ringers Solution) 1,000 ml in 1,000 mls @ 1,000 mls /hr IV ONCE STA Stop: 06/16/18 12:29 Last Admin: 06/16/18 11:46 Dose: 1,000 mls/hr Dextrose/Lactated Ringer's (D5-Lr -) 1,000 mls @ 125 mls/hr IV ASDIR [facility] Last Admin: 06/16/18 11:47 Dose: 125 mls/hr Potassium Phosphate 30 mm/ (Sodium Chloride) 260 mls @ 62.5 mls/hr IVPB ONCE ONE Stop: 06/16/18 16:39 Mupirocin (Bactroban Ointment (For Decolonization) -) 1 applic NS BID [facility] Stop: 06/19/18 21:59 Last Admin: 06/16/18 10:23 Dose: 1 applic Pantoprazole Sodium (Protonix Iv) 40 mg IVPUSH DAILY [facility] Last Admin: 06/16/18 09:33 Dose: 40 mg Promethazine HCl (Phenergan Injection -) 12.5 mg IVPB Q6H PRN PRN Reason: NAUSEA AND/OR VOMITING Gen: Extubated, lethargic but arousable Heart: RRR Lung: decreased breath sounds at the bases Abd: soft, +ostomy pink, dressings dry Ext: no edema Laboratory Results - last 24 hr 06/15/18 06/15/18 06/15/18 05:30 11:58 15:00 WBC RBC Hgb Hct MCV MCH MCHC RDW Plt Count MPV Neutrophils % (Manual) 72.0 Band Neutrophils % 19.0 Lymphocytes % (Manual) 2.0 L Monocytes % (Manual) 5 Eosinophils % (Manual) 0.0 Basophils % (Manual) 0.0 Myelocytes % (Man) 0 Promyelocytes % (Man) 0 Blast Cells % (Manual) 0 Metamyelocytes 0 Hypochromia 0 Platelet Estimate Normal Polychromasia 0 Poikilocytosis 0 Anisocytosis 1+ Microcytosis 0 Macrocytosis 1+ Anticoagulation Therapy Puncture Site ABG pH ABG pCO2 at Pt Temp ABG pO2 at Pt Temp ABG HCO3 ABG O2 Sat (Measured) ABG O2 Content ABG Base Excess Sha Test O2 Delivery Device Oxygen Flow Rate Vent Mode Vent Rate Mechanical Rate Pressure Support Vent Sodium Potassium Chloride Carbon Dioxide Anion Gap BUN Creatinine Creat Clearance w eGFR POC Glucometer 105 Random Glucose Lactic Acid 3.6 H* Calcium Phosphorus Magnesium Total Bilirubin AST ALT Alkaline Phosphatase Total Protein Albumin Ur Random Sodium Ur Random Potassium Ur Random Chloride 06/15/18 06/15/18 06/15/18 15:07 16:57 17:49 WBC RBC Hgb Hct MCV MCH MCHC RDW Plt Count MPV Neutrophils % (Manual) Band Neutrophils % Lymphocytes % (Manual) Monocytes % (Manual) Eosinophils % (Manual) Basophils % (Manual) Myelocytes % (Man) Promyelocytes % (Man) Blast Cells % (Manual) Metamyelocytes Hypochromia Platelet Estimate Polychromasia Poikilocytosis Anisocytosis Microcytosis Macrocytosis Anticoagulation Therapy No Result Required. No Result Required. Puncture Site Left radial Left radial ABG pH 7.30 L 7.39 ABG pCO2 at Pt Temp 47.0 H 39.8 ABG pO2 at Pt Temp 88.7 81.7 ABG HCO3 24.3 23.3 ABG O2 Sat (Measured) 94.8 95.9 ABG O2 Content 19.2 18.3 ABG Base Excess No Result Required. -1.0 Sha Test Positive Positive O2 Delivery Device No Result Required. Nasel Oxygen Flow Rate Yes 2 Vent Mode No Result Required. No Result Required. Vent Rate No Result Required. No Result Required. Mechanical Rate No Result Required. No Result Required. Pressure Support Vent No Result Required. No Result Required. Sodium Potassium Chloride Carbon Dioxide Anion Gap BUN Creatinine Creat Clearance w eGFR POC Glucometer 116 Random Glucose Lactic Acid Calcium Phosphorus Magnesium Total Bilirubin AST ALT Alkaline Phosphatase Total Protein Albumin Ur Random Sodium Ur Random Potassium Ur Random Chloride 06/15/18 06/15/18 06/16/18 20:00 23:52 05:30 WBC 12.0 H RBC 3.88 L Hgb 12.6 Hct 37.0 MCV 95.4 MCH 32.5 MCHC 34.1 RDW 13.8 Plt Count 169 MPV 8.5 Neutrophils % (Manual) Band Neutrophils % Lymphocytes % (Manual) Monocytes % (Manual) Eosinophils % (Manual) Basophils % (Manual) Myelocytes % (Man) Promyelocytes % (Man) Blast Cells % (Manual) Metamyelocytes Hypochromia Platelet Estimate Polychromasia Poikilocytosis Anisocytosis Microcytosis Macrocytosis Anticoagulation Therapy Puncture Site ABG pH ABG pCO2 at Pt Temp ABG pO2 at Pt Temp ABG HCO3 ABG O2 Sat (Measured) ABG O2 Content ABG Base Excess Sha Test O2 Delivery Device Oxygen Flow Rate Vent Mode Vent Rate Mechanical Rate Pressure Support Vent Sodium Potassium Chloride Carbon Dioxide Anion Gap BUN Creatinine Creat Clearance w eGFR POC Glucometer 116 Random Glucose Lactic Acid 3.1 H* Calcium Phosphorus Magnesium Total Bilirubin AST ALT Alkaline Phosphatase Total Protein Albumin Ur Random Sodium Ur Random Potassium Ur Random Chloride 06/16/18 06/16/18 06/16/18 05:30 06:11 07:00 WBC RBC Hgb Hct MCV MCH MCHC RDW Plt Count MPV Neutrophils % (Manual) Band Neutrophils % Lymphocytes % (Manual) Monocytes % (Manual) Eosinophils % (Manual) Basophils % (Manual) Myelocytes % (Man) Promyelocytes % (Man) Blast Cells % (Manual) Metamyelocytes Hypochromia Platelet Estimate Polychromasia Poikilocytosis Anisocytosis Microcytosis Macrocytosis Anticoagulation Therapy Puncture Site ABG pH ABG pCO2 at Pt Temp ABG pO2 at Pt Temp ABG HCO3 ABG O2 Sat (Measured) ABG O2 Content ABG Base Excess Sha Test O2 Delivery Device Oxygen Flow Rate Vent Mode Vent Rate Mechanical Rate Pressure Support Vent Sodium 141 Potassium 3.4 L Chloride 111 H Carbon Dioxide 25 Anion Gap 5 L BUN 12 Creatinine 1.1 Creat Clearance w eGFR > 60 POC Glucometer 113 Random Glucose 108 H Lactic Acid Calcium 7.5 L Phosphorus 1.9 L Magnesium 1.8 Total Bilirubin 1.1 H AST 29 ALT 21 Alkaline Phosphatase 52 Total Protein 4.8 L Albumin 2.2 L Ur Random Sodium 138 Ur Random Potassium 35.7 Ur Random Chloride 176 06/16/18 09:40 WBC RBC Hgb Hct MCV MCH MCHC RDW Plt Count MPV Neutrophils % (Manual) Band Neutrophils % Lymphocytes % (Manual) Monocytes % (Manual) Eosinophils % (Manual) Basophils % (Manual) Myelocytes % (Man) Promyelocytes % (Man) Blast Cells % (Manual) Metamyelocytes Hypochromia Platelet Estimate Polychromasia Poikilocytosis Anisocytosis Microcytosis Macrocytosis Anticoagulation Therapy No Result Required. Puncture Site Right radial ABG pH 7.39 ABG pCO2 at Pt Temp 40.7 ABG pO2 at Pt Temp 75.1 ABG HCO3 23.8 ABG O2 Sat (Measured) 95.1 ABG O2 Content 14.5 L ABG Base Excess -0.6 Sha Test Positive O2 Delivery Device No Result Required. Oxygen Flow Rate Yes Vent Mode No Result Required. Vent Rate No Result Required. Mechanical Rate No Result Required. Pressure Support Vent No Result Required. Sodium Potassium Chloride Carbon Dioxide Anion Gap BUN Creatinine Creat Clearance w eGFR POC Glucometer Random Glucose Lactic Acid Calcium Phosphorus Magnesium Total Bilirubin AST ALT Alkaline Phosphatase Total Protein Albumin Ur Random Sodium Ur Random Potassium Ur Random Chloride ASSESSMENT AND PLAN: Perforated Sigmoid Colon s/p ex-lap/Robb's Procedure r/o Peritonitis Sepsis Lactic Acidosis Acute Kidney Injury Diverticulosis - continue antibiotics - f/u cultures - IVF - monitor urine output, creatinine - pain control - hold all sedation - monitor for return of bowel function - DVT prophylaxis - Aspiration precautions - continue ICU monitoring for tenuous respiratory and overall status Dr Carias Critical care time spent in reviewing chart, evaluating patient and formulating plan 35 min
[2018-06-16] MEDS: DEXTROSE 5%-LACTATED RINGERS 1,000 ML IV SCH (11:47)
[2018-06-16] MEDS ORDERED: POTASSIUM PHOSPHATE 30 MM in SODIUM CHLORIDE 250 ML IVPB ONE (12:30)
--- NOTE | 2018-06-16 12:59 | PN ---
Progress Note, Physician History of Present Illness: EXTUBATED LETHARGIC AFEBRILE WBC SLIGHTLY BETTER BC GPR SLOWLY GROWING ANAEROBICALLY NOT YET IDENTIFIED - Current Medication List Current Medications: Active Medications Acetaminophen (Ofirmev Injection -) 1,000 mg IVPB Q6H PRN PRN Reason: PAIN LEVEL 4 - 6 Last Admin: 06/16/18 00:43 Dose: 1,000 mg Albuterol Sulfate (Ventolin 0.083% Nebulizer Soln -) 1 amp NEB Q4H PRN PRN Reason: SHORT OF BREATH/WHEEZING Last Admin: 06/15/18 16:21 Dose: 1 amp Albuterol/Ipratropium (Duoneb -) 1 amp NEB RQID [facility] Last Admin: 06/16/18 11:21 Dose: 1 amp Chlorhexidine Gluconate (Hibiclens For Decolonization -) 1 applic TP HS [facility] Last Admin: 06/15/18 21:11 Dose: 1 applic Heparin Sodium (Porcine) (Heparin -) 5,000 unit SQ TID [facility] Piperacillin Sod/Tazobactam (Sod 4.5 gm/ Dextrose) 100 mls @ 200 mls/hr IVPB Q6H-IV [facility]; Protocol Last Admin: 06/16/18 09:33 Dose: 200 mls/hr Dextrose/Lactated Ringer's (D5-Lr -) 1,000 mls @ 125 mls/hr IV ASDIR [facility] Last Admin: 06/16/18 11:47 Dose: 125 mls/hr Potassium Phosphate 30 mm/ (Sodium Chloride) 260 mls @ 62.5 mls/hr IVPB ONCE ONE Stop: 06/16/18 16:39 Mupirocin (Bactroban Ointment (For Decolonization) -) 1 applic NS BID [facility] Stop: 06/19/18 21:59 Last Admin: 06/16/18 10:23 Dose: 1 applic Pantoprazole Sodium (Protonix Iv) 40 mg IVPUSH DAILY [facility] Last Admin: 06/16/18 09:33 Dose: 40 mg Promethazine HCl (Phenergan Injection -) 12.5 mg IVPB Q6H PRN PRN Reason: NAUSEA AND/OR VOMITING - Objective Vital Signs: Vital Signs Temperature 98.0 F 06/16/18 10:00 Pulse Rate 112 H 06/16/18 12:00 Respiratory Rate 20 06/16/18 12:00 Blood Pressure 126/80 06/16/18 12:00 O2 Sat by Pulse Oximetry (%) 97 06/16/18 09:00 Constitutional: Yes: No Distress Eyes: Yes: Conjunctiva Clear Cardiovascular: Yes: Regular Rate and Rhythm, Tachycardia, S1, S2 Respiratory: Yes: Diminished Gastrointestinal: Yes: Normal Bowel Sounds, Soft, Other (+ OSTOMY, BETTY DRAIN). No: Tenderness Extremities: Yes: Other (SMALL AREA ERYTHEMA, NEAR R ANTECUBITAL FOSSA) Labs: CBC, BMP 06/16/18 05:30 06/16/18 05:30 INR, PTT INR 0.99 (0.83-1.09) 06/14/18 11:02 Assessment/Plan POD#2 HARTMANS PROCEDURE +BC ? SIGNIFICANCE LEUKOCYTOSIS- IMPROVED CONTINUE EMPIRIC ZOSYN
[2018-06-16] MEDS: HEPARIN NA (PORCINE) 5,000 UNITS/ML 1ML VIAL SQ SCH ×2 (15:40→22:00)
--- NOTE | 2018-06-16 15:51 | PN ---
Teaching Attending Note Name of Resident: Dayron Avery ATTENDING PHYSICIAN STATEMENT I saw and evaluated the patient. I reviewed the resident's note and discussed the case with the resident. I agree with the resident's findings and plan as documented. SUBJECTIVE: unable to obtain, patient somnolent OBJECTIVE: Last Vital Signs Temp Pulse Resp BP Pulse Ox 36.7 C 112 H 20 126/80 97 06/16/18 10:00 06/16/18 12:00 06/16/18 12:00 06/16/18 12:00 06/16/18 09:00 Gen: somnolent Pulm: diffuse loud ronchi in upper airway and all lung ferris CV: sinus tachycardia w/o m/r/g Abd: +bs, s/nt/nd Ext: no c/c/e CBC, BMP 06/16/18 05:30 06/16/18 05:30 ASSESSMENT AND PLAN: (1) Perforated sigmoid colon Assessment/Plan: -s/p resection with colostomy bag placed -continue zosyn per ID Code(s): K63.1 - PERFORATION OF INTESTINE (NONTRAUMATIC) (2) Respiratory failure Assessment/Plan: -extubated -however still with thick secretions -bed at 45 degrees at all times -suction as needed -pulmonary following Code(s): J96.90 - RESPIRATORY FAILURE, UNSP, UNSP W HYPOXIA OR HYPERCAPNIA Qualifiers: Chronicity: acute Respiratory failure complication: hypoxia Qualified Code(s): J96.01 - Acute respiratory failure with hypoxia (3) Lactic acid acidosis Assessment/Plan: -still present -continue hydration and antibiotics Code(s): E87.2 - ACIDOSIS (4) Aspiration -as above (5) acute metabolic encephalopathy -? secondary to sedation wearing off -treat infection and lactic acidosis -close monitoring 37 minutes spent in critical care time with this patient Problem List - Problems (1) Perforated sigmoid colon Code(s): K63.1 - PERFORATION OF INTESTINE (NONTRAUMATIC) (2) Respiratory failure Code(s): J96.90 - RESPIRATORY FAILURE, UNSP, UNSP W HYPOXIA OR HYPERCAPNIA Qualifiers: Chronicity: acute Respiratory failure complication: hypoxia Qualified Code(s): J96.01 - Acute respiratory failure with hypoxia (3) Lactic acid acidosis Code(s): E87.2 - ACIDOSIS (4) Aspiration into lower respiratory tract Code(s): T17.800A - UNSP FOREIGN BODY IN OTH PRT RESP TRACT CAUSING ASPHYX, INIT Qualifiers: Encounter type: initial encounter Qualified Code(s): T17.800A - Unspecified foreign body in other parts of respiratory tract causing asphyxiation, initial encounter (5) Acute metabolic encephalopathy Code(s): G93.41 - METABOLIC ENCEPHALOPATHY
--- NOTE | 2018-06-16 16:02 | OP ---
DATE OF OPERATION: 06/14/2018 PREOPERATIVE DIAGNOSIS: Perforated sigmoid colon secondary to colonoscopy. POSTOPERATIVE DIAGNOSIS: Perforated sigmoid colon secondary to colonoscopy. PROCEDURE: Sigmoid colon resection and end-colostomy (Otis procedure). SURGEON: Sebas Tripathi MD BALLASTER: Issa Duron PA-C ANESTHESIA: General. OPERATIVE FINDINGS: There was a longitudinal perforation of the rectosigmoid extending over several centimeters with minimal but present fecal contamination. There were adhesions of a redundant sigmoid colon to the left lateral abdominal wall. The rest of the findings were unremarkable. PROCEDURE: The patient was placed on the operating room table in the supine position already intubated and with a Zambrano catheter in place. Sequential compression devices were placed and then the patient's abdomen was prepped with ChloraPrep and draped in sterile fashion. A timeout was taken and the peritoneal cavity entered through a midline incision and after exploration the previously noted findings were observed. A point on the proximal sigmoid colon was identified where the colon would be divided for resection and colostomy created and a TIA stapler fired across the colon after an opening was made in the mesentery. The distal segment was stapled off as well. Next using the LigaSure device the mesentery of the sigmoid and rectosigmoid was serially divided. Once the mesentery was divided to a point just above the distal aspect of the perforation in the rectosigmoid above the peritoneal reflection a TIA stapling device was fired and the proximal colon clamped and excised and the specimen passed off the operative field. It should be noted that the colon was markedly redundant as previously discussed. Hemostasis was checked for and noted to be good and then copious irrigation was carried out with saline. The distal rectal stump was tagged on either side with 0 Prolene sutures. Next a 10-mm [place] drain was placed in the pelvis and brought out through a separate stab wound in the right lateral abdominal wall where the drain was secured to the skin with 2-0 silk suture. Next an opening in the abdominal wall was created for the colostomy using electrocautery and this opening was 2 fingerbreadths in maximum diameter. The proximal colon was further mobilized along the left lateral peritoneal reflection and brought through the opening in the abdominal wall without evidence of any tension. Hemostasis again was checked for and noted to be good. The position of the nasogastric tube was verified and the abdomen was closed in a single layer using 0 Maxon continuous suture. It should be noted that gown, gloves and instruments were changed before closure. The subcutaneous tissue was irrigated with saline and the skin edges around the umbilicus were reapproximated with surgical dwight. Dry sterile dressings and a sterile towel were placed over the midline incision and then the colostomy matured by excising the staple line and suturing the end of the colon to the opening in the abdominal wall with interrupted 3-0 Vicryl sutures. A colostomy appliance and bag were placed and the midline dressing further reinforced with more gauze and tape and a Biopatch placed around the drain as well as dry sterile dressings and the procedure was terminated at this point and the patient remained intubated and was transferred to the intensive care unit in stable condition. ESTIMATED BLOOD LOSS: 100 mL. REPLACEMENT: Crystalloid. DRAINS: One 10-mm [place] in the pelvis. SPECIMEN: Sigmoid and portion of rectosigmoid to Pathology. I, Sebas Tripathi, was physically present in the operating room from the time the patient was placed on the operating room table until he was transferred to the postanesthesia care unit in my accompaniment. MD RADHA Yoo/[id number] MTDD
[2018-06-16] MEDS ORDERED: SODIUM CHLORIDE 500 ML IV STA (17:33)
[2018-06-16] MEDS: CHLORHEXIDINE GLUCONATE 4% CLEANSER FOR DECOLONIZATION TP SCH (22:59)
[2018-06-16] MEDS ORDERED: METOPROLOL TARTRATE 5 MG/5 ML VIAL ONE (23:10)
[2018-06-16] MEDS ORDERED: SODIUM CHLORIDE 500 ML IV ONE (23:15)
[2018-06-16] MEDS ORDERED: METOPROLOL TARTRATE 5 MG/5 ML VIAL IVPUSH ONE (23:15)
[2018-06-17] MEDS: PIPERACILLIN/TAZOB 4.5 GM 4.5 GM in DEXTROSE 5%-WATER 100 ML IVPB SCH ×4 (02:24→21:21)
[2018-06-17] MEDS: HEPARIN NA (PORCINE) 5,000 UNITS/ML 1ML VIAL SQ SCH ×3 (06:01→21:22)
[2018-06-17 06:03] LABS: HEMOGLOBIN 12.2 GM/dL (11.7-16.9); MCH 32.8 pg (25.7-33.7); MCHC 34.8 g/dl (32.0-35.9); MEAN PLT VOLUME 8.3 fl (7.5-11.1); PLATELET COUNT 188 K/MM3 (134-434); RBC 3.72 M/mm3 (4.00-5.60); RDW 13.9 % (11.9-15.9)
[2018-06-17 06:44] LABS: ALBUMIN 2.2 g/dl (3.4-5.0); ALK PHOS 88 U/L (45-117); ANION GAP 5 MMOL/L (8-16); BILIRUBIN,TOTAL 1.1 mg/dL (0.2-1); BLOOD UREA NITROGEN 5 mg/dL (7-18); CHLORIDE 114 mmol/L (98-107); CO2 26 mmol/L (21-32); CREATININE 1.1 mg/dL (0.55-1.3); GLUCOSE,RANDOM 114 mg/dL (74-106); POTASSIUM 3.1 mmol/L (3.5-5.1); SGOT/AST 55 U/L (15-37); SGPT/ALT 20 U/L (13-61); SODIUM 145 mmol/L (136-145); TOT PROT 5.3 g/dl (6.4-8.2)
[2018-06-17] MEDS ORDERED: PT OWN MED DRAWER 7, Y5N ONE (06:52)
[2018-06-17] MEDS: ALBUTEROL SO4 2.5/IPRATROPIUM 0.5 INH SOL 3 ML VIAL.NEB. NEB SCH ×4 (08:19→20:06)
--- NOTE | 2018-06-17 08:20 | PN ---
Progress Note (short form) - Note Progress Note: PULM/CCM SUBJECTIVE: Patient seen and examined in the ICU. POD #3: ex-lap/Robb's procedure. 24HR: remains extubated, pain control no flatus yet OBJECTIVE: Active Medications Acetaminophen (Ofirmev Injection -) 1,000 mg IVPB Q6H PRN PRN Reason: PAIN LEVEL 4 - 6 Last Admin: 06/16/18 00:43 Dose: 1,000 mg Albuterol Sulfate (Ventolin 0.083% Nebulizer Soln -) 1 amp NEB Q4H PRN PRN Reason: SHORT OF BREATH/WHEEZING Last Admin: 06/15/18 16:21 Dose: 1 amp Albuterol/Ipratropium (Duoneb -) 1 amp NEB RQID [facility] Last Admin: 06/16/18 11:21 Dose: 1 amp Chlorhexidine Gluconate (Hibiclens For Decolonization -) 1 applic TP HS [facility] Last Admin: 06/15/18 21:11 Dose: 1 applic Heparin Sodium (Porcine) (Heparin -) 5,000 unit SQ TID [facility] Piperacillin Sod/Tazobactam (Sod 4.5 gm/ Dextrose) 100 mls @ 200 mls/hr IVPB Q6H-IV [facility]; Protocol Last Admin: 06/16/18 09:33 Dose: 200 mls/hr Lactated Ringer's (Lactated Ringers Solution) 1,000 ml in 1,000 mls @ 1,000 mls /hr IV ONCE STA Stop: 06/16/18 12:29 Last Admin: 06/16/18 11:46 Dose: 1,000 mls/hr Dextrose/Lactated Ringer's (D5-Lr -) 1,000 mls @ 125 mls/hr IV ASDIR [facility] Last Admin: 06/16/18 11:47 Dose: 125 mls/hr Potassium Phosphate 30 mm/ (Sodium Chloride) 260 mls @ 62.5 mls/hr IVPB ONCE ONE Stop: 06/16/18 16:39 Mupirocin (Bactroban Ointment (For Decolonization) -) 1 applic NS BID [facility] Stop: 06/19/18 21:59 Last Admin: 06/16/18 10:23 Dose: 1 applic Pantoprazole Sodium (Protonix Iv) 40 mg IVPUSH DAILY [facility] Last Admin: 06/16/18 09:33 Dose: 40 mg Promethazine HCl (Phenergan Injection -) 12.5 mg IVPB Q6H PRN PRN Reason: NAUSEA AND/OR VOMITING Gen: awake, mildly confused, no distress Heart: RRR Lung: decreased breath sounds at the bases, scattered rhonchi Abd: soft, +ostomy pink, dressings dry, no BS or flatus Ext: no edema Neuro: non-focal CBCD WBC 11.0 K/mm3 (4.0-10.0) H 06/17/18 05:30 RBC 3.72 M/mm3 (4.00-5.60) L 06/17/18 05:30 Hgb 12.2 GM/dL (11.7-16.9) 06/17/18 05:30 Hct 35.0 % (35.4-49) L 06/17/18 05:30 MCV 94.0 fl (80-96) 06/17/18 05:30 MCHC 34.8 g/dl (32.0-35.9) 06/17/18 05:30 RDW 13.9 % (11.9-15.9) 06/17/18 05:30 Plt Count 188 K/MM3 (134-434) 06/17/18 05:30 MPV 8.3 fl (7.5-11.1) 06/17/18 05:30 CMP Sodium 145 mmol/L (136-145) 06/17/18 05:30 Potassium 3.1 mmol/L (3.5-5.1) L 06/17/18 05:30 Chloride 114 mmol/L (98-107) H 06/17/18 05:30 Carbon Dioxide 26 mmol/L (21-32) 06/17/18 05:30 Anion Gap 5 MMOL/L (8-16) L 06/17/18 05:30 BUN 5 mg/dL (7-18) L 06/17/18 05:30 Creatinine 1.1 mg/dL (0.55-1.3) 06/17/18 05:30 Creat Clearance w eGFR > 60 (>60) 06/17/18 05:30 Calcium 8.0 mg/dL (8.5-10.1) L 06/17/18 05:30 Total Bilirubin 1.1 mg/dL (0.2-1) H 06/17/18 05:30 AST 55 U/L (15-37) H 06/17/18 05:30 ALT 20 U/L (13-61) 06/17/18 05:30 Alkaline Phosphatase 88 U/L (45-117) 06/17/18 05:30 Total Protein 5.3 g/dl (6.4-8.2) L 06/17/18 05:30 Albumin 2.2 g/dl (3.4-5.0) L 06/17/18 05:30 ASSESSMENT AND PLAN: Perforated Sigmoid Colon s/p ex-lap/Robb's Procedure r/o Peritonitis Sepsis Lactic Acidosis Acute Kidney Injury Diverticulosis - continue antibiotics - f/u cultures - IVF - monitor urine output, creatinine - pain control - monitor for return of bowel function - DVT prophylaxis - Aspiration precautions - ok for floor as per surgery/primary - OOB to chair today Leanne DINERO
--- NOTE | 2018-06-17 08:22 | PN ---
Progress Note, Physician Chief Complaint: Unable to obtain. Patient more awake today, attempting to talk but still altered. - Current Medication List Current Medications: Active Medications Acetaminophen (Ofirmev Injection -) 1,000 mg IVPB Q6H PRN PRN Reason: PAIN LEVEL 4 - 6 Last Admin: 06/16/18 13:48 Dose: 1,000 mg Albuterol Sulfate (Ventolin 0.083% Nebulizer Soln -) 1 amp NEB Q4H PRN PRN Reason: SHORT OF BREATH/WHEEZING Last Admin: 06/15/18 16:21 Dose: 1 amp Albuterol/Ipratropium (Duoneb -) 1 amp NEB RQID [facility]CLUDES [facility] Last Admin: 06/17/18 08:19 Dose: 1 amp Chlorhexidine Gluconate (Hibiclens For Decolonization -) 1 applic TP HS COUNT INCLUDES [facility] Last Admin: 06/16/18 22:59 Dose: 1 applic Heparin Sodium (Porcine) (Heparin -) 5,000 unit SQ TID COUNT INCLUDES [facility] Last Admin: 06/17/18 06:01 Dose: 5,000 unit Piperacillin Sod/Tazobactam (Sod 4.5 gm/ Dextrose) 100 mls @ 200 mls/hr IVPB Q6H-IV [facility]; Protocol Last Admin: 06/17/18 02:24 Dose: 200 mls/hr Dextrose/Lactated Ringer's (D5-Lr -) 1,000 mls @ 125 mls/hr IV ASDIR COUNT INCLUDES [facility] Last Admin: 06/16/18 11:47 Dose: 125 mls/hr Potassium Chloride (Potassium Chloride 10 Meq Premix Ivpb -) 10 meq in 100 mls @ 100 mls/hr IVPB Q60M COUNT INCLUDES THE [facility] Stop: 06/17/18 10:14 Mupirocin (Bactroban Ointment (For Decolonization) -) 1 applic NS BID COUNT [facility]CLUDES [facility] Stop: 06/19/18 21:59 Last Admin: 06/16/18 22:58 Dose: 1 applic Pantoprazole Sodium (Protonix Iv) 40 mg IVPUSH DAILY [facility]CLUD[facility] Last Admin: 06/16/18 09:33 Dose: 40 mg Promethazine HCl (Phenergan Injection -) 12.5 mg IVPB Q6H PRN PRN Reason: NAUSEA AND/OR VOMITING - Objective Vital Signs: Vital Signs Temperature 37.2 C 06/17/18 06:00 Pulse Rate 96 H 06/17/18 06:00 Respiratory Rate 24 H 06/17/18 06:00 Blood Pressure 100/72 06/17/18 06:00 O2 Sat by Pulse Oximetry (%) 100 06/17/18 07:56 Constitutional: Yes: Well Nourished, Other (restless in bed) Cardiovascular: Yes: Tachycardia. No: Gallop, Murmur, Rub Respiratory: Yes: On Nasal O2, Rhonchi (bilateral, upper airway sounds), Tachypnea (slight). No: Regular, CTA Bilaterally, Rales, Wheezes Gastrointestinal: Yes: Hypoactive Bowel Sounds, Other (colostomy bag in place). No: Distention, Tenderness Extremities: Yes: WNL Edema: No Labs: CBC, BMP 06/17/18 05:30 06/17/18 05:30 INR, PTT INR 0.99 (0.83-1.09) 06/14/18 11:02 Problem List - Problems (1) Perforated sigmoid colon Code(s): K63.1 - PERFORATION OF INTESTINE (NONTRAUMATIC) (2) Respiratory failure Code(s): J96.90 - RESPIRATORY FAILURE, UNSP, UNSP W HYPOXIA OR HYPERCAPNIA Qualifiers: Chronicity: acute Respiratory failure complication: hypoxia Qualified Code(s): J96.01 - Acute respiratory failure with hypoxia (3) Lactic acid acidosis Code(s): E87.2 - ACIDOSIS (4) Aspiration into lower respiratory tract Code(s): T17.800A - UNSP FOREIGN BODY IN OTH PRT RESP TRACT CAUSING ASPHYX, INIT Qualifiers: Encounter type: initial encounter Qualified Code(s): T17.800A - Unspecified foreign body in other parts of respiratory tract causing asphyxiation, initial encounter (5) Acute metabolic encephalopathy Code(s): G93.41 - METABOLIC ENCEPHALOPATHY (6) Hypokalemia Code(s): E87.6 - HYPOKALEMIA Assessment/Plan (1) Perforated sigmoid colon Assessment/Plan: -s/p resection with colostomy bag placed -continue zosyn per ID Code(s): K63.1 - PERFORATION OF INTESTINE (NONTRAUMATIC) (2) Respiratory failure Assessment/Plan: -case d/w ICU team -still with secretions but less -suction as needed -continue duonebs -continue oxygen supplementation Code(s): J96.90 - RESPIRATORY FAILURE, UNSP, UNSP W HYPOXIA OR HYPERCAPNIA Qualifiers: Chronicity: acute Respiratory failure complication: hypoxia Qualified Code(s): J96.01 - Acute respiratory failure with hypoxia (3) Lactic acid acidosis Assessment/Plan: -still present -continue hydration and antibiotics Code(s): E87.2 - ACIDOSIS (4) Aspiration -npo -HOB elevated (5) acute metabolic encephalopathy -improving -suspect secondary to sedation, patient was naive to these medications prior and taking time to clear -continue close monitoring (6) Hypokalemia -replace 34 minutes spent in critical care time with this patient
[2018-06-17] MEDS ORDERED: KCL 10 MEQ IVPB 20 MEQ/200 ML INFUS.BAG IVPB ONE (08:36)
[2018-06-17] MEDS: KCL 10 MEQ IVPB 10 MEQ/100 ML INFUS.BAG IVPB SCH ×2 (09:12→09:45)
--- NOTE | 2018-06-17 09:15 | PN ---
Progress Note (short form) - Note Progress Note: Attending Surgeon POD #3 Remains extubated in the ICU; cofused but responsive to commands VSS AF abdo-soft; incision open and packed and c/d/i/ and starting to granulate; ostomy viable and some gas is present; BETTY serous Blood culture gm+bacteria growing pending final result NGT bilious; output noted IMP: stable s/p Hartmans procedure for iatrogenic sigmoid perforation PLAN: Continue as per ICU; will be able to feed once ostomy functions. Sebas Tripathi MD FACS
[2018-06-17] MEDS ORDERED: DEXTROSE 5%-WATER 100 ML IVPB ONE ×3 (09:51→21:15)
[2018-06-17] MEDS ORDERED: PIPERACILLIN/TAZOBACTAM 4.5 GM VIAL IVPB ONE ×3 (09:51→21:15)
[2018-06-17] MEDS: MUPIROCIN 2% TOPICAL OINTMENT FOR DECOLONIZATION NS SCH ×2 (10:02→21:22)
[2018-06-17] MEDS: PANTOPRAZOLE SODIUM 40 MG VIAL IVPUSH SCH (10:03)
--- NOTE | 2018-06-17 11:15 | PN ---
Progress Note, Physician History of Present Illness: REMAINS EXTUBATED. BREATHING NON-LABORED INDICATES NO ABDOMINAL PAIN ATTEMPTS TO VERBALIZE AFEBRILE WBC SLIGHTLY BETTER BC GPR SLOWLY GROWING ANAEROBICALLY NOT YET IDENTIFIED - Current Medication List Current Medications: Active Medications Acetaminophen (Ofirmev Injection -) 1,000 mg IVPB Q6H PRN PRN Reason: PAIN LEVEL 4 - 6 Last Admin: 06/16/18 13:48 Dose: 1,000 mg Albuterol Sulfate (Ventolin 0.083% Nebulizer Soln -) 1 amp NEB Q4H PRN PRN Reason: SHORT OF BREATH/WHEEZING Last Admin: 06/15/18 16:21 Dose: 1 amp Albuterol/Ipratropium (Duoneb -) 1 amp NEB RQID [facility] Last Admin: 06/17/18 08:19 Dose: 1 amp Chlorhexidine Gluconate (Hibiclens For Decolonization -) 1 applic TP HS [facility] Last Admin: 06/16/18 22:59 Dose: 1 applic Heparin Sodium (Porcine) (Heparin -) 5,000 unit SQ TID [facility] Last Admin: 06/17/18 06:01 Dose: 5,000 unit Piperacillin Sod/Tazobactam (Sod 4.5 gm/ Dextrose) 100 mls @ 200 mls/hr IVPB Q6H-IV [facility]; Protocol Last Admin: 06/17/18 10:02 Dose: 200 mls/hr Dextrose/Lactated Ringer's (D5-Lr -) 1,000 mls @ 125 mls/hr IV ASDIR [facility] Last Admin: 06/16/18 11:47 Dose: 125 mls/hr Mupirocin (Bactroban Ointment (For Decolonization) -) 1 applic NS BID [facility] Stop: 06/19/18 21:59 Last Admin: 06/17/18 10:02 Dose: 1 applic Pantoprazole Sodium (Protonix Iv) 40 mg IVPUSH DAILY [facility] Last Admin: 06/17/18 10:03 Dose: 40 mg Promethazine HCl (Phenergan Injection -) 12.5 mg IVPB Q6H PRN PRN Reason: NAUSEA AND/OR VOMITING - Objective Vital Signs: Vital Signs Temperature 99.6 F 06/17/18 10:00 Pulse Rate 108 H 06/17/18 10:00 Respiratory Rate 24 H 06/17/18 10:00 Blood Pressure 136/80 06/17/18 10:00 O2 Sat by Pulse Oximetry (%) 100 06/17/18 08:21 Constitutional: Yes: No Distress Eyes: Yes: Conjunctiva Clear Cardiovascular: Yes: Regular Rate and Rhythm, S1, S2 Respiratory: Yes: Rhonchi Gastrointestinal: Yes: Normal Bowel Sounds, Soft, Other (+ OSTOMY WITH GAS IN BAG; BETTY DRAIN WITH SEROSANGUINOUS FLUID) Edema: No Labs: CBC, BMP 06/17/18 05:30 06/17/18 05:30 INR, PTT INR 0.99 (0.83-1.09) 06/14/18 11:02 Assessment/Plan POD#3 HARTMANS PROCEDURE +BC ANAEROBE LEUKOCYTOSIS- IMPROVED CONTINUE EMPIRIC ZOSYN ADD FLAGYL AWAIT FINAL BC
[2018-06-17] MEDS: DEXTROSE 5%-LACTATED RINGERS 1,000 ML IV SCH (12:20)
[2018-06-17] MEDS: ACETAMINOPHEN 1000 MG/100 ML VIAL (NON FORMULARY) IVPB PRN (12:21)
[2018-06-17] MEDS: CHLORHEXIDINE GLUCONATE 4% CLEANSER FOR DECOLONIZATION TP SCH (21:23)
[2018-06-18] MEDS ORDERED: PIPERACILLIN/TAZOBACTAM 4.5 GM VIAL IVPB ONE ×4 (03:20→21:16)
[2018-06-18] MEDS ORDERED: DEXTROSE 5%-WATER 100 ML IVPB ONE ×4 (03:21→21:16)
[2018-06-18] MEDS: PIPERACILLIN/TAZOB 4.5 GM 4.5 GM in DEXTROSE 5%-WATER 100 ML IVPB SCH ×4 (03:29→21:18)
[2018-06-18] MEDS: HEPARIN NA (PORCINE) 5,000 UNITS/ML 1ML VIAL SQ SCH ×3 (05:42→21:18)
[2018-06-18 06:10] LABS: BASO % 0.3 % (0-2.0); EOS % 1.8 % (0-4.5); HEMATOCRIT 36.7 % (35.4-49); HEMOGLOBIN 12.7 GM/dL (11.7-16.9); MCH 32.6 pg (25.7-33.7); MCHC 34.6 g/dl (32.0-35.9); MEAN CELL VOLUME 94.1 fl (80-96); MEAN PLT VOLUME 7.8 fl (7.5-11.1); MONO % 5.4 % (3.8-10.2); NEUT % 83.5 % (42.8-82.8); PLATELET COUNT 222 K/MM3 (134-434); RDW 13.7 % (11.9-15.9); WHITE BLOOD COUNT 9.6 K/mm3 (4.0-10.0)
[2018-06-18 06:35] LABS: ALBUMIN 2.2 g/dl (3.4-5.0); ALK PHOS 98 U/L (45-117); ANION GAP 5 MMOL/L (8-16); BILIRUBIN,DIRECT 0.5 mg/dL (0.0-0.2); BILIRUBIN,TOTAL 1.2 mg/dL (0.2-1); BLOOD UREA NITROGEN 6 mg/dL (7-18); CALCIUM 7.8 mg/dL (8.5-10.1); CHLORIDE 109 mmol/L (98-107); CO2 27 mmol/L (21-32); CREATININE 1.1 mg/dL (0.55-1.3); GLUCOSE,RANDOM 115 mg/dL (74-106); MAGNESIUM 1.8 mg/dL (1.8-2.4); PHOSPHOROUS 3.1 mg/dL (2.5-4.9); POTASSIUM 3.4 mmol/L (3.5-5.1); SGOT/AST 59 U/L (15-37); SGPT/ALT 23 U/L (13-61); SODIUM 142 mmol/L (136-145); TOT PROT 5.5 g/dl (6.4-8.2)
--- NOTE | 2018-06-18 07:40 | PN ---
Progress Note (short form) - Note Progress Note: PULM/CCM SUBJECTIVE: Patient seen and examined in the ICU. POD #4: ex-lap/Robb's procedure. 24HR: -clostridium in blood from admission, repeat sent -started on flagyl -pulled out NGT today -still quiet bowels, no stool output in ostomy OBJECTIVE: Active Medications Vital Signs Temp 97 F L 06/18/18 07:00 Pulse 75 06/18/18 07:00 Resp 16 06/18/18 07:00 BP 115/80 06/18/18 07:00 Pulse Ox 98 06/17/18 23:40 Intake & Output 06/17/18 06/17/18 06/18/18 11:59 23:59 12:59 Intake Total 1600 2300 1700 Output Total 910 2920 720 Balance 690 -620 980 Weight 72.121 kg 69.354 kg Intake: IV 1500 1500 1500 D5-Lr - 1,000 ml @ 125 1500 1500 1500 mls/hr IV ASDIR [facility] Rx#: [id number] IVPB 100 800 200 Oral 0 Output: Gastric Drainage 100 200 Drainage 10 20 20 Right Abdomen 10 20 20 Urine 900 2800 500 Zambrano 900 2800 500 Other: Voiding Method Indwelling Catheter Indwelling Catheter Bowel Movement No No Weight Measurement Method Built in Bedscale Built in Bedscale Active Medications Albuterol Sulfate (Ventolin 0.083% Nebulizer Soln -) 1 amp NEB Q4H PRN PRN Reason: SHORT OF BREATH/WHEEZING Last Admin: 06/15/18 16:21 Dose: 1 amp Albuterol/Ipratropium (Duoneb -) 1 amp NEB RQID [facility] Last Admin: 06/17/18 20:06 Dose: 1 amp Chlorhexidine Gluconate (Hibiclens For Decolonization -) 1 applic TP HS [facility] Last Admin: 06/17/18 21:23 Dose: 1 applic Heparin Sodium (Porcine) (Heparin -) 5,000 unit SQ TID [facility] Last Admin: 06/18/18 05:42 Dose: 5,000 unit Piperacillin Sod/Tazobactam (Sod 4.5 gm/ Dextrose) 100 mls @ 200 mls/hr IVPB Q6H-IV [facility]; Protocol Last Admin: 06/18/18 03:29 Dose: 200 mls/hr Dextrose/Lactated Ringer's (D5-Lr -) 1,000 mls @ 125 mls/hr IV ASDIR [facility] Last Admin: 06/17/18 12:20 Dose: 125 mls/hr Metronidazole (Flagyl 500mg Premixed Ivpb -) 500 mg in 100 mls @ 100 mls/hr IVPB Q8H-IV [facility] Last Admin: 06/18/18 03:32 Dose: 100 mls/hr Mupirocin (Bactroban Ointment (For Decolonization) -) 1 applic NS BID [facility] Stop: 06/19/18 21:59 Last Admin: 06/17/18 21:22 Dose: 1 applic Pantoprazole Sodium (Protonix Iv) 40 mg IVPUSH DAILY [facility] Last Admin: 06/17/18 10:03 Dose: 40 mg Promethazine HCl (Phenergan Injection -) 12.5 mg IVPB Q6H PRN PRN Reason: NAUSEA AND/OR VOMITING Gen: awake, mildly confused, no distress Heart: RRR Lung: decreased breath sounds at the bases, scattered rhonchi Abd: soft, +ostomy pink, dressings dry, no BS or flatus, no stool, BETTY with minimal output, Ext: no edema Neuro: non-focal CBC, BMP 06/18/18 05:30 06/18/18 05:30 ASSESSMENT AND PLAN: Perforated Sigmoid Colon s/p ex-lap/Robb's Procedure r/o Peritonitis Sepsis Lactic Acidosis Acute Kidney Injury Diverticulosis - continue antibiotics, resent blood cxl to confirm clearance - IVF - monitor urine output, creatinine - pain control - monitor for return of bowel function before starting diet, if not soon replace NGT - DVT prophylaxis - Aspiration precautions - ok for floor as per surgery/primary - OOB to chair today Leanne ACNP [id number]
[2018-06-18] MEDS: ALBUTEROL SO4 2.5/IPRATROPIUM 0.5 INH SOL 3 ML VIAL.NEB. NEB SCH ×4 (08:27→20:00)
[2018-06-18] MEDS: MUPIROCIN 2% TOPICAL OINTMENT FOR DECOLONIZATION NS SCH ×2 (09:34→21:18)
[2018-06-18] MEDS: PANTOPRAZOLE SODIUM 40 MG VIAL IVPUSH SCH (09:35)
--- NOTE | 2018-06-18 11:30 | PN ---
Progress Note, Physician Chief Complaint: Mr Levin says he is doing well today. Asking when he can eat but is currently not hungry. Denies cp, sob, n/v. - Current Medication List Current Medications: Active Medications Albuterol Sulfate (Ventolin 0.083% Nebulizer Soln -) 1 amp NEB Q4H PRN PRN Reason: SHORT OF BREATH/WHEEZING Last Admin: 06/15/18 16:21 Dose: 1 amp Albuterol/Ipratropium (Duoneb -) 1 amp NEB RQID [facility] Last Admin: 06/18/18 11:07 Dose: 1 amp Chlorhexidine Gluconate (Hibiclens For Decolonization -) 1 applic TP HS [facility] Last Admin: 06/17/18 21:23 Dose: 1 applic Heparin Sodium (Porcine) (Heparin -) 5,000 unit SQ TID [facility] Last Admin: 06/18/18 05:42 Dose: 5,000 unit Piperacillin Sod/Tazobactam (Sod 4.5 gm/ Dextrose) 100 mls @ 200 mls/hr IVPB Q6H-IV [facility]; Protocol Last Admin: 06/18/18 09:34 Dose: 200 mls/hr Dextrose/Lactated Ringer's (D5-Lr -) 1,000 mls @ 125 mls/hr IV ASDIR [facility] Last Admin: 06/17/18 12:20 Dose: 125 mls/hr Metronidazole (Flagyl 500mg Premixed Ivpb -) 500 mg in 100 mls @ 100 mls/hr IVPB Q8H-IV [facility] Last Admin: 06/18/18 09:34 Dose: 100 mls/hr Mupirocin (Bactroban Ointment (For Decolonization) -) 1 applic NS BID [facility] Stop: 06/19/18 21:59 Last Admin: 06/18/18 09:34 Dose: 1 applic Pantoprazole Sodium (Protonix Iv) 40 mg IVPUSH DAILY [facility] Last Admin: 06/18/18 09:35 Dose: 40 mg Promethazine HCl (Phenergan Injection -) 12.5 mg IVPB Q6H PRN PRN Reason: NAUSEA AND/OR VOMITING - Objective Vital Signs: Vital Signs Temperature 36.9 C 06/18/18 10:00 Pulse Rate 71 06/18/18 10:00 Respiratory Rate 16 06/18/18 10:00 Blood Pressure 131/73 06/18/18 10:00 O2 Sat by Pulse Oximetry (%) 97 06/18/18 08:26 Constitutional: Yes: Well Nourished, No Distress, Calm Cardiovascular: Yes: Regular Rate and Rhythm. No: Gallop, Murmur, Rub Respiratory: Yes: Regular, On Nasal O2, Rhonchi. No: CTA Bilaterally, Rales, Wheezes Gastrointestinal: Yes: Soft, Distention, Hypoactive Bowel Sounds, Other ( colostomy bag in place). No: Tenderness Extremities: Yes: WNL Edema: No Labs: CBC, BMP 06/18/18 05:30 06/18/18 05:30 INR, PTT INR 0.99 (0.83-1.09) 06/14/18 11:02 Problem List - Problems (1) Perforated sigmoid colon Code(s): K63.1 - PERFORATION OF INTESTINE (NONTRAUMATIC) (2) Respiratory failure Code(s): J96.90 - RESPIRATORY FAILURE, UNSP, UNSP W HYPOXIA OR HYPERCAPNIA Qualifiers: Chronicity: acute Respiratory failure complication: hypoxia Qualified Code(s): J96.01 - Acute respiratory failure with hypoxia (3) Lactic acid acidosis Code(s): E87.2 - ACIDOSIS (4) Aspiration into lower respiratory tract Code(s): T17.800A - UNSP FOREIGN BODY IN OTH PRT RESP TRACT CAUSING ASPHYX, INIT Qualifiers: Encounter type: initial encounter Qualified Code(s): T17.800A - Unspecified foreign body in other parts of respiratory tract causing asphyxiation, initial encounter (5) Acute metabolic encephalopathy Code(s): G93.41 - METABOLIC ENCEPHALOPATHY (6) Hypokalemia Code(s): E87.6 - HYPOKALEMIA Assessment/Plan (1) Perforated sigmoid colon Assessment/Plan: -s/p resection with colostomy bag placed -continue zosyn per ID -flagyl added -surgery seeing, defer starting diet to surgery Code(s): K63.1 - PERFORATION OF INTESTINE (NONTRAUMATIC) (2) Respiratory failure Assessment/Plan: -much improved -continue oxygen supplementation -continue duonebs -chest PT ordered Code(s): J96.90 - RESPIRATORY FAILURE, UNSP, UNSP W HYPOXIA OR HYPERCAPNIA Qualifiers: Chronicity: acute Respiratory failure complication: hypoxia Qualified Code(s): J96.01 - Acute respiratory failure with hypoxia (3) Lactic acid acidosis Aersolved Code(s): E87.2 - ACIDOSIS (4) Aspiration -npo -HOB elevated (5) acute metabolic encephalopathy -resolved (6) Hypokalemia -replace in LR Safe to transfer to telemetry today
--- NOTE | 2018-06-18 13:05 | PN ---
Progress Note (short form) - Note Progress Note: Attending Surgeon POD #4 No c/o; alert and responsive and overall improved; NGT is out; VSS AF abdo-soft; slightly tympanitic; some gas in the ostomy bag; ostomy is viable; wound care in progress; BETTY serous WBC 9.6 BC-Clostridium ramosum IMP: improving PLAN: Continue present tx.; OOB; hope to start clear liquid diet 06/19/18. Sebas Tripathi MD FACS
[2018-06-18] MEDS: DEXTROSE 5%-LACTATED RINGERS 1,000 ML IV SCH (14:24)
[2018-06-18] MEDS ORDERED: ACETAMINOPHEN 1000 MG/100 ML VIAL (NON FORMULARY) IVPB PRN (17:29)
[2018-06-18] MEDS: CHLORHEXIDINE GLUCONATE 4% CLEANSER FOR DECOLONIZATION TP SCH (21:18)
[2018-06-19] MEDS ORDERED: PIPERACILLIN/TAZOBACTAM 4.5 GM VIAL IVPB ONE ×4 (03:31→20:42)
[2018-06-19] MEDS ORDERED: DEXTROSE 5%-WATER 100 ML IVPB ONE ×4 (03:32→20:42)
[2018-06-19] MEDS: PIPERACILLIN/TAZOB 4.5 GM 4.5 GM in DEXTROSE 5%-WATER 100 ML IVPB SCH ×5 (03:41→21:30)
[2018-06-19] MEDS: HEPARIN NA (PORCINE) 5,000 UNITS/ML 1ML VIAL SQ SCH ×4 (05:28→21:30)
[2018-06-19 06:08] LABS: BASO % 0.4 % (0-2.0); EOS % 1.4 % (0-4.5); HEMATOCRIT 38.2 % (35.4-49); HEMOGLOBIN 13.1 GM/dL (11.7-16.9); LYMPH % 12.6 % (8-40); MCH 32.3 pg (25.7-33.7); MCHC 34.4 g/dl (32.0-35.9); MEAN CELL VOLUME 94.1 fl (80-96); MEAN PLT VOLUME 7.8 fl (7.5-11.1); MONO % 10.9 % (3.8-10.2); NEUT % 74.7 % (42.8-82.8); PLATELET COUNT 235 K/MM3 (134-434); RBC 4.06 M/mm3 (4.00-5.60); RDW 14.1 % (11.9-15.9); WHITE BLOOD COUNT 8.2 K/mm3 (4.0-10.0)
[2018-06-19 06:38] LABS: ANION GAP 7 MMOL/L (8-16); BLOOD UREA NITROGEN 9 mg/dL (7-18); CHLORIDE 112 mmol/L (98-107); CO2 26 mmol/L (21-32); CREATININE 1.2 mg/dL (0.55-1.3); GLUCOSE,RANDOM 104 mg/dL (74-106); MAGNESIUM 1.6 mg/dL (1.8-2.4); POTASSIUM 3.4 mmol/L (3.5-5.1); SODIUM 146 mmol/L (136-145)
--- NOTE | 2018-06-19 07:30 | PN ---
Physical Exam: SUBJECTIVE: Patient seen and examined this AM. He states he is doing okay and that his pain is as expected, however he does note urinary retention overnight with severe pain that was relieved with Zambrano insertion. OBJECTIVE: Vital Signs Period Temp Pulse Resp BP Sys/Mars Pulse Ox Last 24 Hr 98 F-98.7 F 61-101 15-22 98-151/41-85 94-97 GENERAL: A&O, no acute distress EYES: PERRL, no scleral icterus NECK: supple without lymphadenopathy LUNGS: CTA b/l, no crackles or wheezes HEART: Regular rate and rhythm, normal S1 and S2 without murmur ABDOMEN: Soft, minimally to palpation, hypoactive bowel sounds, ostomy bag in place with air but without stool, BETTY drain in place EXTREMITIES: No peripheral edema. NEUROLOGICAL: Cranial nerves II-XII grossly intact. Normal speech. Laboratory Results - last 24 hr 06/18/18 06/18/18 06/18/18 07:28 13:18 18:17 WBC RBC Hgb Hct MCV MCH MCHC RDW Plt Count MPV Absolute Neuts (auto) Neutrophils % Lymphocytes % Monocytes % Eosinophils % Basophils % Nucleated RBC % Sodium Potassium Chloride Carbon Dioxide Anion Gap BUN Creatinine Creat Clearance w eGFR POC Glucometer 108 122 130 Random Glucose Calcium Phosphorus Magnesium 06/19/18 06/19/18 06/19/18 03:48 05:30 05:30 WBC 8.2 RBC 4.06 Hgb 13.1 Hct 38.2 MCV 94.1 MCH 32.3 MCHC 34.4 RDW 14.1 Plt Count 235 MPV 7.8 Absolute Neuts (auto) 6.1 Neutrophils % 74.7 Lymphocytes % 12.6 D Monocytes % 10.9 H D Eosinophils % 1.4 Basophils % 0.4 Nucleated RBC % 0 Sodium 146 H Potassium 3.4 L Chloride 112 H Carbon Dioxide 26 Anion Gap 7 L BUN 9 Creatinine 1.2 Creat Clearance w eGFR 59.02 POC Glucometer 122 Random Glucose 104 Calcium 8.0 L Phosphorus 3.0 Magnesium 1.6 L 06/19/18 06:29 WBC RBC Hgb Hct MCV MCH MCHC RDW Plt Count MPV Absolute Neuts (auto) Neutrophils % Lymphocytes % Monocytes % Eosinophils % Basophils % Nucleated RBC % Sodium Potassium Chloride Carbon Dioxide Anion Gap BUN Creatinine Creat Clearance w eGFR POC Glucometer 117 Random Glucose Calcium Phosphorus Magnesium Active Medications Generic Name Dose Route Start Last Admin Trade Name Freq PRN Reason Stop Dose Admin Acetaminophen 1,000 mg 06/18/18 17:29 06/18/18 18:04 Ofirmev Injection - IVPB 1,000 mg Q6H PRN Administration PAIN SCALE 4-6 Albuterol Sulfate 1 amp 06/15/18 14:33 06/15/18 16:21 Ventolin 0.083% Nebulizer Soln - NEB 1 amp Q4H PRN Administration SHORT OF BREATH/WHEEZING Albuterol/Ipratropium 1 amp 06/14/18 16:00 06/18/18 20:00 Duoneb - NEB 1 amp RQID [facility] Administration Chlorhexidine Gluconate 1 applic 06/14/18 22:00 06/18/18 21:18 Hibiclens For Decolonization - TP 1 applic HS [facility] Administration Heparin Sodium (Porcine) 5,000 unit 06/16/18 14:00 06/19/18 05:28 Heparin - SQ 5,000 unit TID [facility] Administration Piperacillin Sod/Tazobactam 100 mls @ 200 mls/hr 06/15/18 15:00 06/19/18 03: 41 Sod 4.5 gm/ Dextrose IVPB 200 mls/hr Q6H-IV [facility] Administration Protocol Dextrose/Lactated Ringer's 1,000 mls @ 125 mls/hr 06/16/18 12:29 06/18/18 14: 24 D5-Lr - IV 125 mls/hr ASDIR [facility] Administration Metronidazole 500 mg in 100 mls @ 100 mls/hr 06/18/18 03:30 06/19/18 02:30 Flagyl 500mg Premixed Ivpb - IVPB 100 mls/hr Q8H-IV [facility] Administration Mupirocin 1 applic 06/14/18 22:00 06/18/18 21:18 Bactroban Ointment (For Decolonization) - NS 06/19/18 21:59 1 applic BID [facility] Administration Pantoprazole Sodium 40 mg 06/15/18 10:00 06/18/18 09:35 Protonix Iv IVPUSH 40 mg DAILY [facility] Administration Promethazine HCl 12.5 mg 06/15/18 17:11 Phenergan Injection - IVPB Q6H PRN NAUSEA AND/OR VOMITING ASSESSMENT/PLAN: 77 year old male with history of diverticulosis, hemorrhoids (s/p hemorrhoidectomy), bilateral inguinal hernias admitted to ICU following Bowel perforation during routine colonoscopy, s/p Robb procedure. NEURO -no neurological deficits noted CARDIO -no cardiac pathology noted at this time RESPIRATORY -No respiratory pathology noted at this time -Incentive spirometry GI -POD 5 s/p Robb procedure -Surgery consulted and following case -Advance to Clear liquids ID -ID consult appreciated -Continue Zosyn/Flagyl PROPHYLAXIS -Heparin 5000 units SQ TID FEN -D5LR @ 125 cc/hr -Replete K+ and Mag -Advance to clear liquids LINES/CATHETERS -none DISPOSITION Medically stable for transfer to Med/Surg Visit type - Emergency Visit Emergency Visit: Yes ED Registration Date: 06/14/18 Care time: The patient presented to the Emergency Department on the above date and was hospitalized for further evaluation of their emergent condition. - New Patient This patient is new to me today: Yes Date on this admission: 06/19/18 - Critical Care Critical Care patient: No
[2018-06-19] MEDS ORDERED: MAGNESIUM SULF 50% (8.12 MEQ/2 ML-1 GM VIAL) IVPB ONE (07:32)
[2018-06-19] MEDS: ALBUTEROL SO4 2.5/IPRATROPIUM 0.5 INH SOL 3 ML VIAL.NEB. NEB SCH ×2 (07:40→11:40)
--- NOTE | 2018-06-19 09:46 | PN ---
Progress Note, Physician Chief Complaint: Mr Levin says he is doing well today. Denies cp, sob, n/v. Does not have appetite. Has not had gas or bowel movement in bag. - Current Medication List Current Medications: Active Medications Acetaminophen (Ofirmev Injection -) 1,000 mg IVPB Q6H PRN PRN Reason: PAIN SCALE 4-6 Last Admin: 06/18/18 18:04 Dose: 1,000 mg Albuterol Sulfate (Ventolin 0.083% Nebulizer Soln -) 1 amp NEB Q4H PRN PRN Reason: SHORT OF BREATH/WHEEZING Last Admin: 06/15/18 16:21 Dose: 1 amp Albuterol/Ipratropium (Duoneb -) 1 amp NEB RQID [facility] Last Admin: 06/19/18 07:40 Dose: 1 amp Chlorhexidine Gluconate (Hibiclens For Decolonization -) 1 applic TP HS [facility] Last Admin: 06/18/18 21:18 Dose: 1 applic Heparin Sodium (Porcine) (Heparin -) 5,000 unit SQ TID [facility] Last Admin: 06/19/18 05:28 Dose: 5,000 unit Piperacillin Sod/Tazobactam (Sod 4.5 gm/ Dextrose) 100 mls @ 200 mls/hr IVPB Q6H-IV [facility]; Protocol Last Admin: 06/19/18 03:41 Dose: 200 mls/hr Dextrose/Lactated Ringer's (D5-Lr -) 1,000 mls @ 125 mls/hr IV ASDIR [facility] Last Admin: 06/18/18 14:24 Dose: 125 mls/hr Metronidazole (Flagyl 500mg Premixed Ivpb -) 500 mg in 100 mls @ 100 mls/hr IVPB Q8H-IV [facility] Last Admin: 06/19/18 02:30 Dose: 100 mls/hr Potassium Chloride (Potassium Chloride 10 Meq Premix Ivpb -) 10 meq in 100 mls @ 100 mls/hr IVPB Q60M [facility] Stop: 06/19/18 11:44 Mupirocin (Bactroban Ointment (For Decolonization) -) 1 applic NS BID [facility] Stop: 06/19/18 21:59 Last Admin: 06/18/18 21:18 Dose: 1 applic Pantoprazole Sodium (Protonix Iv) 40 mg IVPUSH DAILY [facility] Last Admin: 06/18/18 09:35 Dose: 40 mg Promethazine HCl (Phenergan Injection -) 12.5 mg IVPB Q6H PRN PRN Reason: NAUSEA AND/OR VOMITING - Objective Vital Signs: Vital Signs Temperature 36.6 C 06/19/18 06:00 Pulse Rate 70 06/19/18 06:00 Respiratory Rate 16 06/19/18 06:00 Blood Pressure 105/55 L 06/19/18 06:00 O2 Sat by Pulse Oximetry (%) 94 L 06/18/18 22:39 Constitutional: Yes: Well Nourished, No Distress, Calm Cardiovascular: Yes: Regular Rate and Rhythm. No: Gallop, Murmur, Rub Respiratory: Yes: Regular, CTA Bilaterally. No: Rales, Rhonchi, Wheezes Gastrointestinal: Yes: Soft, Hypoactive Bowel Sounds, Tenderness (slight), Other (colostomy bag in place, minimal liquid in bag) Extremities: Yes: WNL Edema: No Labs: CBC, BMP 06/19/18 05:30 06/19/18 05:30 INR, PTT INR 0.99 (0.83-1.09) 06/14/18 11:02 Problem List - Problems (1) Perforated sigmoid colon Code(s): K63.1 - PERFORATION OF INTESTINE (NONTRAUMATIC) (2) Respiratory failure Code(s): J96.90 - RESPIRATORY FAILURE, UNSP, UNSP W HYPOXIA OR HYPERCAPNIA Qualifiers: Chronicity: acute Respiratory failure complication: hypoxia Qualified Code(s): J96.01 - Acute respiratory failure with hypoxia (3) Lactic acid acidosis Code(s): E87.2 - ACIDOSIS (4) Aspiration into lower respiratory tract Code(s): T17.800A - UNSP FOREIGN BODY IN OTH PRT RESP TRACT CAUSING ASPHYX, INIT Qualifiers: Encounter type: initial encounter Qualified Code(s): T17.800A - Unspecified foreign body in other parts of respiratory tract causing asphyxiation, initial encounter (5) Acute metabolic encephalopathy Code(s): G93.41 - METABOLIC ENCEPHALOPATHY (6) Hypokalemia Code(s): E87.6 - HYPOKALEMIA Assessment/Plan (1) Perforated sigmoid colon Assessment/Plan: -s/p resection with colostomy bag placed -continue zosyn and flagyl per ID -diet per ID, may need clinimix if prolonged anorexia Code(s): K63.1 - PERFORATION OF INTESTINE (NONTRAUMATIC) (2) Respiratory failure Assessment/Plan: -resolved -continue current management Code(s): J96.90 - RESPIRATORY FAILURE, UNSP, UNSP W HYPOXIA OR HYPERCAPNIA Qualifiers: Chronicity: acute Respiratory failure complication: hypoxia Qualified Code(s): J96.01 - Acute respiratory failure with hypoxia (3) Lactic acid acidosis Assessment/P;an: -resolved Code(s): E87.2 - ACIDOSIS (4) Aspiration -npo -HOB elevated (5) acute metabolic encephalopathy -resolved -mental status at baseline (6) Hypokalemia -replace
[2018-06-19] MEDS: PANTOPRAZOLE SODIUM 40 MG VIAL IVPUSH SCH (10:17)
[2018-06-19] MEDS: KCL 10 MEQ IVPB 10 MEQ/100 ML INFUS.BAG IVPB SCH ×2 (10:22→13:23)
[2018-06-19] MEDS: MUPIROCIN 2% TOPICAL OINTMENT FOR DECOLONIZATION NS SCH (10:26)
--- NOTE | 2018-06-19 10:42 | PN ---
Progress Note (short form) - Note Progress Note: [facility] *LIVE* Progress Note (short form) Patient Name: SUKI SUAZO Date of : 1940 Patient Status: Inpatient Attending Provider: Lawrence Cantor Date: 06/19/18 1042 Initialization Date: Progress Note (short form) - Note Progress Note: Attending Surgeon POD #5 No c/o; alert and responsive and overall improved; tolerating ice chips VSS AF abdo-soft; slightly tympanitic; gas in the ostomy bag; ostomy is viable; wound care in progress; BETTY serous WBC 8.2 BC-Clostridium ramosum IMP: improving PLAN: Continue present tx.; OOB; start clear liquid diet Sebas Tripathi MD FACS
--- NOTE | 2018-06-19 11:27 | PN ---
Progress Note, Physician History of Present Illness: AWAKE,ALERT URINARY RETENTION JOSE IN PLACE NO ABDOMINAL PAIN AFEBRILE WBC WNL BC CLOSTRIDIUM SP. - Current Medication List Current Medications: Active Medications Acetaminophen (Ofirmev Injection -) 1,000 mg IVPB Q6H PRN PRN Reason: PAIN SCALE 4-6 Last Admin: 06/18/18 18:04 Dose: 1,000 mg Albuterol Sulfate (Ventolin 0.083% Nebulizer Soln -) 1 amp NEB Q4H PRN PRN Reason: SHORT OF BREATH/WHEEZING Last Admin: 06/15/18 16:21 Dose: 1 amp Albuterol/Ipratropium (Duoneb -) 1 amp NEB RQID [facility] Last Admin: 06/19/18 07:40 Dose: 1 amp Chlorhexidine Gluconate (Hibiclens For Decolonization -) 1 applic TP HS [facility] Last Admin: 06/18/18 21:18 Dose: 1 applic Heparin Sodium (Porcine) (Heparin -) 5,000 unit SQ TID [facility] Last Admin: 06/19/18 05:28 Dose: 5,000 unit Piperacillin Sod/Tazobactam (Sod 4.5 gm/ Dextrose) 100 mls @ 200 mls/hr IVPB Q6H-IV [facility]; Protocol Last Admin: 06/19/18 09:16 Dose: 200 mls/hr Dextrose/Lactated Ringer's (D5-Lr -) 1,000 mls @ 125 mls/hr IV ASDIR [facility] Last Admin: 06/18/18 14:24 Dose: 125 mls/hr Metronidazole (Flagyl 500mg Premixed Ivpb -) 500 mg in 100 mls @ 100 mls/hr IVPB Q8H-IV [facility] Last Admin: 06/19/18 10:17 Dose: 100 mls/hr Potassium Chloride (Potassium Chloride 10 Meq Premix Ivpb -) 10 meq in 100 mls @ 100 mls/hr IVPB Q60M [facility] Stop: 06/19/18 11:44 Last Admin: 06/19/18 10:22 Dose: 100 mls/hr Mupirocin (Bactroban Ointment (For Decolonization) -) 1 applic NS BID [facility] Stop: 06/19/18 21:59 Last Admin: 06/19/18 10:26 Dose: 1 applic Pantoprazole Sodium (Protonix Iv) 40 mg IVPUSH DAILY [facility] Last Admin: 06/19/18 10:17 Dose: 40 mg Promethazine HCl (Phenergan Injection -) 12.5 mg IVPB Q6H PRN PRN Reason: NAUSEA AND/OR VOMITING - Objective Vital Signs: Vital Signs Temperature 98.3 F 06/19/18 08:35 Pulse Rate 93 H 06/19/18 08:35 Respiratory Rate 06/19/18 08:35 Blood Pressure 124/57 L 06/19/18 08:35 O2 Sat by Pulse Oximetry (%) 94 L 06/18/18 22:39 Constitutional: Yes: No Distress Cardiovascular: Yes: Regular Rate and Rhythm, S1, S2 Respiratory: Yes: CTA Bilaterally Gastrointestinal: Yes: Normal Bowel Sounds, Other (+ SURGICAL WOUND + OSTOMY) Edema: No Labs: CBC, BMP 06/19/18 05:30 06/19/18 05:30 INR, PTT INR 0.99 (0.83-1.09) 06/14/18 11:02 Assessment/Plan POST OP HARTMANS PROCEDURE +BC CLOSTRIDIUM LEUKOCYTOSIS-RESOLVE CONTINUE ZOSYN /FLAGYL
--- NOTE | 2018-06-19 11:45 | PN ---
Teaching Attending Note Name of Resident: Abran Leal ATTENDING PHYSICIAN STATEMENT I saw and evaluated the patient. I reviewed the resident's note and discussed the case with the resident. I agree with the resident's findings and plan as documented. SUBJECTIVE: Patient seen and examined in the ICU. POD #5: ex-lap/Robb's procedure. Awake and alert. Some congested cough. OBJECTIVE: Intake & Output 06/16/18 06/17/18 06/18/18 06/19/18 22:59 22:59 23:59 23:59 Intake Total 1376 Output Total 1540 Balance -164 Weight 154 lb 12.8 oz Last Vital Signs Temp Pulse Resp BP Pulse Ox 98.3 F 93 H 19 124/57 L 94 L 06/19/18 08:35 06/19/18 08:35 06/19/18 09:00 06/19/18 08:35 06/19/18 09:00 Active Medications Acetaminophen (Ofirmev Injection -) 1,000 mg IVPB Q6H PRN PRN Reason: PAIN SCALE 4-6 Last Admin: 06/18/18 18:04 Dose: 1,000 mg Albuterol Sulfate (Ventolin 0.083% Nebulizer Soln -) 1 amp NEB Q4H PRN PRN Reason: SHORT OF BREATH/WHEEZING Last Admin: 06/15/18 16:21 Dose: 1 amp Albuterol/Ipratropium (Duoneb -) 1 amp NEB RQID [facility] Last Admin: 06/19/18 07:40 Dose: 1 amp Chlorhexidine Gluconate (Hibiclens For Decolonization -) 1 applic TP HS [facility] Last Admin: 06/18/18 21:18 Dose: 1 applic Heparin Sodium (Porcine) (Heparin -) 5,000 unit SQ TID [facility] Last Admin: 06/19/18 05:28 Dose: 5,000 unit Piperacillin Sod/Tazobactam (Sod 4.5 gm/ Dextrose) 100 mls @ 200 mls/hr IVPB Q6H-IV [facility]; Protocol Last Admin: 06/19/18 09:16 Dose: 200 mls/hr Dextrose/Lactated Ringer's (D5-Lr -) 1,000 mls @ 125 mls/hr IV ASDIR [facility] Last Admin: 06/18/18 14:24 Dose: 125 mls/hr Metronidazole (Flagyl 500mg Premixed Ivpb -) 500 mg in 100 mls @ 100 mls/hr IVPB Q8H-IV [facility] Last Admin: 06/19/18 10:17 Dose: 100 mls/hr Potassium Chloride (Potassium Chloride 10 Meq Premix Ivpb -) 10 meq in 100 mls @ 100 mls/hr IVPB Q60M [facility] Stop: 06/19/18 11:44 Last Admin: 06/19/18 10:22 Dose: 100 mls/hr Mupirocin (Bactroban Ointment (For Decolonization) -) 1 applic NS BID [facility] Stop: 06/19/18 21:59 Last Admin: 06/19/18 10:26 Dose: 1 applic Pantoprazole Sodium (Protonix Iv) 40 mg IVPUSH DAILY [facility] Last Admin: 06/19/18 10:17 Dose: 40 mg Promethazine HCl (Phenergan Injection -) 12.5 mg IVPB Q6H PRN PRN Reason: NAUSEA AND/OR VOMITING Gen: Extubated, awake and alert Heart: RRR Lung: decreased breath sounds at the bases Abd: soft, +ostomy pink, dressings dry Ext: no edema Laboratory Results - last 24 hr 06/16/18 06/16/18 06/18/18 18:17 21:38 13:18 WBC RBC Hgb Hct MCV MCH MCHC RDW Plt Count MPV Absolute Neuts (auto) Neutrophils % Lymphocytes % Monocytes % Eosinophils % Basophils % Nucleated RBC % Sodium Potassium Chloride Carbon Dioxide Anion Gap BUN Creatinine Creat Clearance w eGFR POC Glucometer 214 117 122 Random Glucose Calcium Phosphorus Magnesium 06/18/18 06/19/18 06/19/18 18:17 03:48 05:30 WBC 8.2 RBC 4.06 Hgb 13.1 Hct 38.2 MCV 94.1 MCH 32.3 MCHC 34.4 RDW 14.1 Plt Count 235 MPV 7.8 Absolute Neuts (auto) 6.1 Neutrophils % 74.7 Lymphocytes % 12.6 D Monocytes % 10.9 H D Eosinophils % 1.4 Basophils % 0.4 Nucleated RBC % 0 Sodium Potassium Chloride Carbon Dioxide Anion Gap BUN Creatinine Creat Clearance w eGFR POC Glucometer 130 122 Random Glucose Calcium Phosphorus Magnesium 06/19/18 06/19/18 05:30 06:29 WBC RBC Hgb Hct MCV MCH MCHC RDW Plt Count MPV Absolute Neuts (auto) Neutrophils % Lymphocytes % Monocytes % Eosinophils % Basophils % Nucleated RBC % Sodium 146 H Potassium 3.4 L Chloride 112 H Carbon Dioxide 26 Anion Gap 7 L BUN 9 Creatinine 1.2 Creat Clearance w eGFR 59.02 POC Glucometer 117 Random Glucose 104 Calcium 8.0 L Phosphorus 3.0 Magnesium 1.6 L ASSESSMENT AND PLAN: Perforated Sigmoid Colon s/p ex-lap/Robb's Procedure r/o Peritonitis Sepsis Lactic Acidosis Acute Kidney Injury Diverticulosis - continue antibiotics - IVF - monitor urine output, creatinine - pain control - PO as tolerated - DVT prophylaxis: SQ Heparin - Aspiration precautions - Floor Dr Carias
[2018-06-19] MEDS: DEXTROSE 5%-LACTATED RINGERS 1,000 ML IV SCH ×2 (12:23→18:44)
[2018-06-19 12:38] VITALS: BMI 22.7
[2018-06-19] MEDS ORDERED: POTASSIUM CHLORIDE ORAL LIQUID 20 MEQ/15 ML PO ONE (15:00)
--- NOTE | 2018-06-19 15:33 | PN ---
Physical Exam: SUBJECTIVE: Patient seen and examined POD#5 exp lap; Hartmans procedure, now with gastric contents in in colostomy; bedolla d/c'd; now able to void on own. No new complaints; denies fever, chill,n, v. OBJECTIVE: Vital Signs Period Temp Pulse Resp BP Sys/Mars Pulse Ox Last 24 Hr 98 F-98.7 F 61-93 15-22 98-151/41-85 94-97 GENERAL: The patient is awake, alert, and fully oriented, in no acute distress. LUNGS: Breath sounds equal, clear to auscultation bilaterally, no wheezes, no crackles, no accessory muscle use. HEART: Regular rate and rhythm, S1, S2 without murmur, rub or gallop. ABDOMEN: Soft nondistended,with colostomy and vin drain ; mild tenderness EXTREMITIES: 2+ pulses, warm, well-perfused, no edema. Laboratory Results - last 24 hr 06/16/06/16/18 06/18/18 18:17 21:38 18:17 WBC RBC Hgb Hct MCV MCH MCHC RDW Plt Count MPV Absolute Neuts (auto) Neutrophils % Lymphocytes % Monocytes % Eosinophils % Basophils % Nucleated RBC % Sodium Potassium Chloride Carbon Dioxide Anion Gap BUN Creatinine Creat Clearance w eGFR POC Glucometer 214 117 130 Random Glucose Calcium Phosphorus Magnesium 06/19/18 06/19/18 06/19/18 03:48 05:30 05:30 WBC 8.2 RBC 4.06 Hgb 13.1 Hct 38.2 MCV 94.1 MCH 32.3 MCHC 34.4 RDW 14.1 Plt Count 235 MPV 7.8 Absolute Neuts (auto) 6.1 Neutrophils % 74.7 Lymphocytes % 12.6 D Monocytes % 10.9 H D Eosinophils % 1.4 Basophils % 0.4 Nucleated RBC % 0 Sodium 146 H Potassium 3.4 L Chloride 112 H Carbon Dioxide 26 Anion Gap 7 L BUN 9 Creatinine 1.2 Creat Clearance w eGFR 59.02 POC Glucometer 122 Random Glucose 104 Calcium 8.0 L Phosphorus 3.0 Magnesium 1.6 L 06/19/18 06:29 WBC RBC Hgb Hct MCV MCH MCHC RDW Plt Count MPV Absolute Neuts (auto) Neutrophils % Lymphocytes % Monocytes % Eosinophils % Basophils % Nucleated RBC % Sodium Potassium Chloride Carbon Dioxide Anion Gap BUN Creatinine Creat Clearance w eGFR POC Glucometer 117 Random Glucose Calcium Phosphorus Magnesium Active Medications Generic Name Dose Route Start Last Admin Trade Name Freq PRN Reason Stop Dose Admin Acetaminophen 1,000 mg 06/18/18 17:29 06/18/18 18:04 Ofirmev Injection - IVPB 1,000 mg Q6H PRN Administration PAIN SCALE 4-6 Albuterol Sulfate 1 amp 06/15/18 14:33 06/15/18 16:21 Ventolin 0.083% Nebulizer Soln - NEB 1 amp Q4H PRN Administration SHORT OF BREATH/WHEEZING Albuterol/Ipratropium 1 amp 06/14/18 16:00 06/19/18 11:40 Duoneb - NEB 1 amp RQID [facility] Administration Chlorhexidine Gluconate 1 applic 06/14/18 22:00 06/18/18 21:18 Hibiclens For Decolonization - TP 1 applic HS [facility] Administration Heparin Sodium (Porcine) 5,000 unit 06/16/18 14:00 06/19/18 14:22 Heparin - SQ 5,000 unit TID [facility] Administration Piperacillin Sod/Tazobactam 100 mls @ 200 mls/hr 06/15/18 15:00 06/19/18 14: 24 Sod 4.5 gm/ Dextrose IVPB 200 mls/hr Q6H-IV [facility] Administration Protocol Dextrose/Lactated Ringer's 1,000 mls @ 125 mls/hr 06/16/18 12:29 06/19/18 12: 23 D5-Lr - IV Not Given ASDIR [facility] Metronidazole 500 mg in 100 mls @ 100 mls/hr 06/18/18 03:30 06/19/18 10:17 Flagyl 500mg Premixed Ivpb - IVPB 100 mls/hr Q8H-IV [facility] Administration Mupirocin 1 applic 06/14/18 22:00 06/19/18 10:26 Bactroban Ointment (For Decolonization) - NS 06/19/18 21:59 1 applic BID [facility] Administration Pantoprazole Sodium 40 mg 06/15/18 10:00 06/19/18 10:17 Protonix Iv IVPUSH 40 mg DAILY [facility] Administration Promethazine HCl 12.5 mg 06/15/18 17:11 Phenergan Injection - IVPB Q6H PRN NAUSEA AND/OR VOMITING ASSESSMENT/PLAN: This is a 77 year old male with a history of diverticulosis, otherwise a healthy man, presented to hospital due to perforated sigmoid colon after getting screening colonoscopy. POD#5 ex-lap/Robb's procedure. #Perforated Sigmoid Colon POD #5 ex-lap/Robb's procedure -gastric contents draining from colostomy -started on clears -pain controlled -bedolal d/c;d now voiding on own -antibiotics DAy #5 currently on flagyl/zosyn #sepsis secondary to peritonitis; resolving -cont anti biotics -ID following #MANNY: resolved #hypokalemia; replace; ceck mg FEN: Fluids; LR Electrolytes ; replace k ; check mg phos Diet: clear liq DVTppl: heparin sq Visit type - Emergency Visit Emergency Visit: Yes ED Registration Date: 06/14/18 Care time: The patient presented to the Emergency Department on the above date and was hospitalized for further evaluation of their emergent condition. - New Patient This patient is new to me today: Yes Date on this admission: 06/19/18 - Critical Care Critical Care patient: No
--- NOTE | 2018-06-19 16:02 | PATH ---
Surgical Pathology Report Patient Name: SUKI SUAZO [facility]. Rec. 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 ACUTE SEROSITIS COMPATIBLE WITH CLINICAL PERFORATION. SURGICAL MARGINS ARE VIABLE. Electronically Signed Bee Jara M.D. Gross Description Received in formalin labeled "rectosigmoid," is a 26 cm in length portion of colon with one stapled and one open mucosal margin. The serosa is henriquez-bloom and smooth. No discrete perforation site is identified. The mucosa is henriquez with normal folds. No mucosal masses are identified. Sectioning reveals multiple uncomplicated diverticula. Plumbing Assembler Installer sections are submitted in 10 cassettes as follows: 1-open mucosal margin; 2-stapled mucosal margin; 4-57-[id number] diverticula. /06/16/2018 saudi06/16/2018
[2018-06-19] MEDS ORDERED: ALBUTEROL SO4 0.083% IH SOL 2.5 MG/3 ML VIAL.NEB. NEB PRN (18:11)
[2018-06-19] MEDS ORDERED: ACETAMINOPHEN 1000 MG/100 ML VIAL (NON FORMULARY) IVPB PRN (18:11)
[2018-06-19] MEDS ORDERED: PROMETHAZINE HCL 25 MG/1 ML VIAL IVPB PRN (18:11)
[2018-06-19] MEDS ORDERED: PNEUMOC 13-VAL CONJ-DIP CRM/PF 0.5 ML DISP.SYRIN IM ONE (20:00)
--- NOTE | 2018-06-19 21:36 | PN ---
Progress Note (short form) - Note Progress Note: Pt. complaining of urinary retention and abdominal pain. Bladder scna showed 200cc earlier today and then 100cc tonight (limited 2/2 abdominal pain). Straight cath resulted in 430 cc of dark brown urine. Pt. denies any abdominal pain at this time.
[2018-06-20] MEDS ORDERED: PIPERACILLIN/TAZOBACTAM 4.5 GM VIAL IVPB ONE ×4 (01:09→21:37)
[2018-06-20] MEDS ORDERED: DEXTROSE 5%-WATER 100 ML IVPB ONE ×4 (01:09→21:37)
[2018-06-20] MEDS: PIPERACILLIN/TAZOB 4.5 GM 4.5 GM in DEXTROSE 5%-WATER 100 ML IVPB SCH ×4 (03:10→22:15)
[2018-06-20] MEDS: HEPARIN NA (PORCINE) 5,000 UNITS/ML 1ML VIAL SQ SCH ×3 (05:54→22:11)
[2018-06-20 07:20] LABS: BASO % 0.4 % (0-2.0); EOS % 1.7 % (0-4.5); HEMATOCRIT 34.8 % (35.4-49); HEMOGLOBIN 12.1 GM/dL (11.7-16.9); LYMPH % 13.8 % (8-40); MCH 32.4 pg (25.7-33.7); MCHC 34.7 g/dl (32.0-35.9); MEAN CELL VOLUME 93.3 fl (80-96); MEAN PLT VOLUME 7.4 fl (7.5-11.1); MONO % 10.8 % (3.8-10.2); NEUT % 73.3 % (42.8-82.8); PLATELET COUNT 244 K/MM3 (134-434); RBC 3.73 M/mm3 (4.00-5.60); RDW 13.7 % (11.9-15.9); WHITE BLOOD COUNT 7.9 K/mm3 (4.0-10.0)
[2018-06-20 07:56] LABS: ANION GAP 7 MMOL/L (8-16); BLOOD UREA NITROGEN 9 mg/dL (7-18); CALCIUM 7.9 mg/dL (8.5-10.1); CHLORIDE 113 mmol/L (98-107); CO2 25 mmol/L (21-32); GLUCOSE,RANDOM 120 mg/dL (74-106); PHOSPHOROUS 2.7 mg/dL (2.5-4.9); POTASSIUM 3.4 mmol/L (3.5-5.1); SODIUM 144 mmol/L (136-145)
[2018-06-20] MEDS: PANTOPRAZOLE SODIUM 40 MG VIAL IVPUSH SCH (09:03)
[2018-06-20] MEDS ORDERED: POTASSIUM CHLORIDE ORAL LIQUID 20 MEQ/15 ML PO ONE ×2 (11:03→15:11)
[2018-06-20] MEDS ORDERED: MAGNESIUM SULF 50% (8.12 MEQ/2 ML-1 GM VIAL) IVPB ONE (11:04)
[2018-06-20] MEDS: KCL 10 MEQ IVPB 10 MEQ/100 ML INFUS.BAG IVPB SCH ×2 (11:48→15:25)
--- NOTE | 2018-06-20 15:06 | PN ---
Progress Note, Physician History of Present Illness: AWAKE,ALERT IN BED URINARY RETENTION JOSE IN PLACE NO ABDOMINAL PAIN AFEBRILE WBC WNL BC CLOSTRIDIUM SP. - Current Medication List Current Medications: Active Medications Acetaminophen (Ofirmev Injection -) 1,000 mg IVPB Q6H PRN PRN Reason: PAIN SCALE 4-6 Albuterol Sulfate (Ventolin 0.083% Nebulizer Soln -) 1 amp NEB Q4H PRN PRN Reason: SHORT OF BREATH/WHEEZING Heparin Sodium (Porcine) (Heparin -) 5,000 unit SQ TID [facility] Last Admin: 06/20/18 14:06 Dose: Not Given Dextrose/Lactated Ringer's (D5-Lr -) 1,000 mls @ 125 mls/hr IV ASDIR [facility] Last Admin: 06/19/18 18:44 Dose: 125 mls/hr Metronidazole (Flagyl 500mg Premixed Ivpb -) 500 mg in 100 mls @ 100 mls/hr IVPB Q8H-IV [facility] Last Admin: 06/20/18 10:19 Dose: 100 mls/hr Piperacillin Sod/Tazobactam (Sod 4.5 gm/ Dextrose) 100 mls @ 200 mls/hr IVPB Q6H-IV [facility]; Protocol Last Admin: 06/20/18 09:03 Dose: 200 mls/hr Pantoprazole Sodium (Protonix Iv) 40 mg IVPUSH DAILY [facility] Last Admin: 06/20/18 09:03 Dose: 40 mg Promethazine HCl (Phenergan Injection -) 12.5 mg IVPB Q6H PRN PRN Reason: NAUSEA AND/OR VOMITING - Objective Vital Signs: Vital Signs Temperature 98.2 F 06/20/18 13:36 Pulse Rate 82 06/20/18 13:36 Respiratory Rate 20 06/20/18 13:36 Blood Pressure 116/63 06/20/18 13:36 O2 Sat by Pulse Oximetry (%) 96 06/20/18 09:00 Eyes: Yes: Conjunctiva Clear Cardiovascular: Yes: Regular Rate and Rhythm, S1, S2 Respiratory: Yes: CTA Bilaterally Gastrointestinal: Yes: Soft, Other (+ OSTOMY SURGICAL WOUND PACKED). No: Tenderness Edema: No Labs: CBC, BMP 06/20/18 06:25 06/20/18 06:25 INR, PTT INR 0.99 (0.83-1.09) 06/14/18 11:02 Assessment/Plan POST OP HARTMANS PROCEDURE +BC CLOSTRIDIUM LEUKOCYTOSIS-RESOLVED CONTINUE ZOSYN /FLAGYL
--- NOTE | 2018-06-20 16:11 | PN ---
Teaching Attending Note Name of Resident: Karoline Bryan ATTENDING PHYSICIAN STATEMENT I saw and evaluated the patient. I reviewed the resident's note and discussed the case with the resident. I agree with the resident's findings and plan as documented. SUBJECTIVE: Mr Levin says he did not sleep well last night but otherwise is without complaint. Denies cp, sob, n/v. OBJECTIVE: Last Vital Signs Temp Pulse Resp BP Pulse Ox 36.8 C 82 20 116/63 96 06/20/18 13:36 06/20/18 13:36 06/20/18 13:36 06/20/18 13:36 06/20/18 09:00 Gen: nad Pulm: ctab w/o w/r/r CV: rrr w/o m/r/g Abd: +bs, s/nt/nd, stool in colostomy bag Ext: no c/c/e CBC, BMP 06/20/18 06:25 06/20/18 06:25 ASSESSMENT AND PLAN: (1) Perforated sigmoid colon Assessment/Plan: -s/p resection with colostomy bag placed -continue zosyn and flagyl per ID -tolerating clear liquid diet Code(s): K63.1 - PERFORATION OF INTESTINE (NONTRAUMATIC) (2) Respiratory failure Assessment/Plan: -resolved -continue current management Code(s): J96.90 - RESPIRATORY FAILURE, UNSP, UNSP W HYPOXIA OR HYPERCAPNIA Qualifiers: Chronicity: acute Respiratory failure complication: hypoxia Qualified Code(s): J96.01 - Acute respiratory failure with hypoxia (3) Lactic acid acidosis Assessment/P;an: -resolved Code(s): E87.2 - ACIDOSIS (4) Aspiration -resolved (5) acute metabolic encephalopathy -resolved -mental status at baseline (6) Hypokalemia -replace today Dispo -will need SNF placement, plan for discharge when clear from surgery and ID Problem List - Problems (1) Perforated sigmoid colon Code(s): K63.1 - PERFORATION OF INTESTINE (NONTRAUMATIC) (2) Respiratory failure Code(s): J96.90 - RESPIRATORY FAILURE, UNSP, UNSP W HYPOXIA OR HYPERCAPNIA Qualifiers: Chronicity: acute Respiratory failure complication: hypoxia Qualified Code(s): J96.01 - Acute respiratory failure with hypoxia (3) Lactic acid acidosis Code(s): E87.2 - ACIDOSIS (4) Aspiration into lower respiratory tract Code(s): T17.800A - UNSP FOREIGN BODY IN OTH PRT RESP TRACT CAUSING ASPHYX, INIT Qualifiers: Encounter type: initial encounter Qualified Code(s): T17.800A - Unspecified foreign body in other parts of respiratory tract causing asphyxiation, initial encounter (5) Acute metabolic encephalopathy Code(s): G93.41 - METABOLIC ENCEPHALOPATHY (6) Hypokalemia Code(s): E87.6 - HYPOKALEMIA
[2018-06-20] MEDS: DEXTROSE 5%-LACTATED RINGERS 1,000 ML IV SCH ×2 (17:12→18:41)
--- NOTE | 2018-06-20 18:16 | PN ---
Physical Exam: SUBJECTIVE: Patient seen and examined; ON bedolla re placed due to pain and urinary retention OBJECTIVE: Vital Signs Period Temp Pulse Resp BP Sys/Mars Pulse Ox Last 24 Hr 98.2 F-98.9 F 76-85 18-20 112-131/63-72 96-98 GENERAL: The patient is awake, alert, and fully oriented, in no acute distress. LUNGS: Breath sounds equal, clear to auscultation bilaterally, no wheezes, no crackles, no accessory muscle use. HEART: Regular rate and rhythm, S1, S2 without murmur, rub or gallop. ABDOMEN: colostomy bag with stool forming; no erythema/edema; EXTREMITIES: 2+ pulses, warm, well-perfused, no edema. NEUROLOGICAL: Cranial nerves II through XII grossly intact. Normal speech, gait not observed. PSYCH: Normal mood, normal affect. SKIN: Warm, dry, normal turgor, no rashes or lesions noted Laboratory Results - last 24 hr 06/19/18 06/20/18 06/20/18 21:12 05:52 06:25 WBC 7.9 RBC 3.73 L Hgb 12.1 Hct 34.8 L MCV 93.3 MCH 32.4 MCHC 34.7 RDW 13.7 Plt Count 244 MPV 7.4 L Absolute Neuts (auto) 5.8 Neutrophils % 73.3 Lymphocytes % 13.8 Monocytes % 10.8 H Eosinophils % 1.7 Basophils % 0.4 Nucleated RBC % 0 Sodium Potassium Chloride Carbon Dioxide Anion Gap BUN Creatinine Creat Clearance w eGFR POC Glucometer 134 121 Random Glucose Calcium Phosphorus Magnesium 06/20/18 06:25 WBC RBC Hgb Hct MCV MCH MCHC RDW Plt Count MPV Absolute Neuts (auto) Neutrophils % Lymphocytes % Monocytes % Eosinophils % Basophils % Nucleated RBC % Sodium 144 Potassium 3.4 L Chloride 113 H Carbon Dioxide 25 Anion Gap 7 L BUN 9 Creatinine 1.0 Creat Clearance w eGFR > 60 POC Glucometer Random Glucose 120 H Calcium 7.9 L Phosphorus 2.7 Magnesium 2.0 Active Medications Generic Name Dose Route Start Last Admin Trade Name Freq PRN Reason Stop Dose Admin Acetaminophen 1,000 mg 06/19/18 18:11 Ofirmev Injection - IVPB Q6H PRN PAIN SCALE 4-6 Albuterol Sulfate 1 amp 06/19/18 18:11 Ventolin 0.083% Nebulizer Soln - NEB Q4H PRN SHORT OF BREATH/WHEEZING Diphenhydramine HCl 25 mg 06/20/18 22:00 Benadryl Injection - IVPUSH 06/20/18 22:01 ONCE ONE Heparin Sodium (Porcine) 5,000 unit 06/19/18 22:00 06/20/18 14:06 Heparin - SQ Not Given TID CASS Dextrose/Lactated Ringer's 1,000 mls @ 125 mls/hr 06/19/18 18:11 06/20/18 17: 12 D5-Lr - IV 125 mls/hr ASDIR CASS Administration Metronidazole 500 mg in 100 mls @ 100 mls/hr 06/20/18 02:00 06/20/18 17:12 Flagyl 500mg Premixed Ivpb - IVPB 100 mls/hr Q8H-IV CASS Administration Piperacillin Sod/Tazobactam 100 mls @ 200 mls/hr 06/19/18 21:00 06/20/18 15: 13 Sod 4.5 gm/ Dextrose IVPB 200 mls/hr Q6H-IV CASS Administration Protocol Pantoprazole Sodium 40 mg 06/20/18 10:00 06/20/18 09:03 Protonix Iv IVPUSH 40 mg DAILY CASS Administration Promethazine HCl 12.5 mg 06/19/18 18:11 Phenergan Injection - IVPB Q6H PRN NAUSEA AND/OR VOMITING ASSESSMENT/PLAN: This is a 77 year old male with a history of diverticulosis, otherwise a healthy man, presented to hospital due to perforated sigmoid colon after getting screening colonoscopy. POD#5 ex-lap/Robb's procedure. #Perforated Sigmoid Colon POD #6 ex-lap/Robb's procedure -gastric contents draining from colostomy -started on clears -pain controlled -bedolla d/c;d now voiding on own -antibiotics DAy #6 currently on flagyl/zosyn #sepsis secondary to peritonitis; resolving -cont anti biotics -ID following #urinary retention: -ML due to inflammation from surgery -flomax -will order UA ; kidney /bladder US ; r/o acute pathology; obstruction #MANNY: resolved #hypokalemia; replace; with 40meg K soln #Fluids; LR #Diet: clear liq; advance as per sx DVTppl: heparin sq Visit type - Emergency Visit Emergency Visit: Yes ED Registration Date: 06/14/18 Care time: The patient presented to the Emergency Department on the above date and was hospitalized for further evaluation of their emergent condition. - New Patient This patient is new to me today: No - Critical Care Critical Care patient: No
[2018-06-20 19:05] LABS: URINE APPEARANCE CLEAR; URINE BILIRUBIN NEGATIVE (<2.0 mg/dL); URINE COLOR YELLOW; URINE GLUCOSE (UA) NEGATIVE (NEGATIVE); URINE KETONE 1+ (NEGATIVE); URINE LEUK ESTERASE TRACE (NEGATIVE); URINE NITRITE NEGATIVE (NEGATIVE); URINE PROTEIN 1+ (NEGATIVE); URINE UROBILINOGEN NEGATIVE mg/dL (0.2-1.0)
[2018-06-20 19:06] LABS: URINE MUCUS RARE
[2018-06-21] MEDS ORDERED: DEXTROSE 5%-WATER 100 ML IVPB ONE ×4 (00:44→21:31)
[2018-06-21] MEDS ORDERED: PIPERACILLIN/TAZOBACTAM 4.5 GM VIAL IVPB ONE ×4 (00:44→21:31)
[2018-06-21] MEDS: PIPERACILLIN/TAZOB 4.5 GM 4.5 GM in DEXTROSE 5%-WATER 100 ML IVPB SCH ×4 (03:14→22:19)
[2018-06-21] MEDS: HEPARIN NA (PORCINE) 5,000 UNITS/ML 1ML VIAL SQ SCH ×3 (05:13→21:31)
[2018-06-21 07:29] LABS: BASO % 0.4 % (0-2.0); EOS % 1.9 % (0-4.5); HEMATOCRIT 34.8 % (35.4-49); HEMOGLOBIN 12.3 GM/dL (11.7-16.9); LYMPH % 11.1 % (8-40); MCH 33.6 pg (25.7-33.7); MCHC 35.3 g/dl (32.0-35.9); MEAN CELL VOLUME 94.9 fl (80-96); MEAN PLT VOLUME 8.1 fl (7.5-11.1); MONO % 8.9 % (3.8-10.2); NEUT % 77.7 % (42.8-82.8); PLATELET COUNT 257 K/MM3 (134-434); RBC 3.67 M/mm3 (4.00-5.60); RDW 14.1 % (11.9-15.9); WHITE BLOOD COUNT 9.3 K/mm3 (4.0-10.0)
[2018-06-21 08:25] LABS: ANION GAP 6 MMOL/L (8-16); BLOOD UREA NITROGEN 8 mg/dL (7-18); CALCIUM 7.9 mg/dL (8.5-10.1); CHLORIDE 113 mmol/L (98-107); CO2 24 mmol/L (21-32); GLUCOSE,RANDOM 117 mg/dL (74-106); MAGNESIUM 2.2 mg/dL (1.8-2.4); PHOSPHOROUS 2.5 mg/dL (2.5-4.9); POTASSIUM 3.7 mmol/L (3.5-5.1); SODIUM 142 mmol/L (136-145)
[2018-06-21] MEDS: PANTOPRAZOLE SODIUM 40 MG VIAL IVPUSH SCH (10:06)
--- NOTE | 2018-06-21 12:57 | PN ---
Progress Note (short form) - Note Progress Note: Attending Surgeon POD #6 No c/o; tolerating diet VSS AF abdo-wound healing; dwight in place; drain serous WBC-nl IMP: doing well PLAN: Soft diet; ambulate; wound care; d/c IV; drain removed intact. Sebas Tripathi MD FACS
--- NOTE | 2018-06-21 14:07 | PN ---
Progress Note, Physician History of Present Illness: AWAKE,ALERT IN BED URINARY RETENTION JOSE IN PLACE NO ABDOMINAL PAIN TOLERATING FULL LIQUIDS AFEBRILE WBC WNL BC CLOSTRIDIUM SP. - Current Medication List Current Medications: Active Medications Acetaminophen (Ofirmev Injection -) 1,000 mg IVPB Q6H PRN PRN Reason: PAIN SCALE 4-6 Albuterol Sulfate (Ventolin 0.083% Nebulizer Soln -) 1 amp NEB Q4H PRN PRN Reason: SHORT OF BREATH/WHEEZING Heparin Sodium (Porcine) (Heparin -) 5,000 unit SQ TID CASS Last Admin: 06/21/18 05:13 Dose: Not Given Metronidazole (Flagyl 500mg Premixed Ivpb -) 500 mg in 100 mls @ 100 mls/hr IVPB Q8H-IV CASS Last Admin: 06/21/18 10:07 Dose: 100 mls/hr Piperacillin Sod/Tazobactam (Sod 4.5 gm/ Dextrose) 100 mls @ 200 mls/hr IVPB Q6H-IV CASS; Protocol Last Admin: 06/21/18 10:06 Dose: 200 mls/hr Pantoprazole Sodium (Protonix Iv) 40 mg IVPUSH DAILY CASS Last Admin: 06/21/18 10:06 Dose: 40 mg Promethazine HCl (Phenergan Injection -) 12.5 mg IVPB Q6H PRN PRN Reason: NAUSEA AND/OR VOMITING - Objective Vital Signs: Vital Signs Temperature 98.4 F 06/21/18 10:00 Pulse Rate 82 06/21/18 10:00 Respiratory Rate 18 06/21/18 10:00 Blood Pressure 137/73 06/21/18 10:00 O2 Sat by Pulse Oximetry (%) 97 06/20/18 21:00 Constitutional: Yes: No Distress Eyes: Yes: Conjunctiva Clear Cardiovascular: Yes: Regular Rate and Rhythm, S1, S2 Respiratory: Yes: CTA Bilaterally Gastrointestinal: Yes: Normal Bowel Sounds, Soft, Other (+OSTOMY). No: Tenderness Edema: No Labs: CBC, BMP 06/21/18 06:30 06/21/18 06:30 INR, PTT INR 0.99 (0.83-1.09) 06/14/18 11:02 Assessment/Plan POST OP HARTMANS PROCEDURE +BC CLOSTRIDIUM SP. LEUKOCYTOSIS-RESOLVED CONTINUE ZOSYN /FLAGYL SUBSTITUTE PO CEFTIN 500MG BID+ FLAGYL PO 500MG TID X 7D NEXT 24H
--- NOTE | 2018-06-21 17:26 | PN ---
Physical Exam: SUBJECTIVE: Patient seen and examined' still with bedolla; urinary retention; OBJECTIVE: Vital Signs Period Temp Pulse Resp BP Sys/Mars Pulse Ox Last 24 Hr 98.0 F-98.4 F 76-86 18-20 122-137/69-78 97 GENERAL: The patient is awake, alert, and fully oriented, in no acute distress. NECK: Trachea midline, full range of motion, supple. LUNGS: Breath sounds equal, clear to auscultation bilaterally, no wheezes, no crackles, no accessory muscle use. HEART: Regular rate and rhythm, S1, S2 without murmur, rub or gallop. ABDOMEN: Soft, nontender, nondistended,, colostomy in place; no swelling or erythema around site rebound, no hepatosplenomegaly, no masses. EXTREMITIES: 2+ pulses, warm, well-perfused, no edema. NEUROLOGICAL: Cranial nerves II through XII grossly intact. Normal speech, gait not observed. PSYCH: Normal mood, normal affect. SKIN: back maculopoluar rash ; Laboratory Results - last 24 hr 06/20/18 06/20/18 06/21/18 18:30 22:13 06:25 WBC RBC Hgb Hct MCV MCH MCHC RDW Plt Count MPV Absolute Neuts (auto) Neutrophils % Lymphocytes % Monocytes % Eosinophils % Basophils % Nucleated RBC % Sodium Potassium Chloride Carbon Dioxide Anion Gap BUN Creatinine Creat Clearance w eGFR POC Glucometer 120 121 Random Glucose Calcium Phosphorus Magnesium Urine Color Yellow Urine Appearance Clear Urine pH 7.0 D Ur Specific [place] 1.018 Urine Protein 1+ H Urine Glucose (UA) Negative Urine Ketones 1+ H Urine Blood 1+ H Urine Nitrite Negative Urine Bilirubin Negative Urine Urobilinogen Negative Ur Leukocyte Esterase Trace Urine WBC (Auto) 5 Urine RBC (Auto) 4 Urine Mucus Rare 06/21/18 06/21/18 06:30 06:30 WBC 9.3 RBC 3.67 L Hgb 12.3 Hct 34.8 L MCV 94.9 MCH 33.6 MCHC 35.3 RDW 14.1 Plt Count 257 MPV 8.1 Absolute Neuts (auto) 7.2 Neutrophils % 77.7 Lymphocytes % 11.1 Monocytes % 8.9 Eosinophils % 1.9 Basophils % 0.4 Nucleated RBC % 0 Sodium 142 Potassium 3.7 Chloride 113 H Carbon Dioxide 24 Anion Gap 6 L BUN 8 Creatinine 1.0 Creat Clearance w eGFR > 60 POC Glucometer Random Glucose 117 H Calcium 7.9 L Phosphorus 2.5 Magnesium 2.2 Urine Color Urine Appearance Urine pH Ur Specific [place] Urine Protein Urine Glucose (UA) Urine Ketones Urine Blood Urine Nitrite Urine Bilirubin Urine Urobilinogen Ur Leukocyte Esterase Urine WBC (Auto) Urine RBC (Auto) Urine Mucus Active Medications Generic Name Dose Route Start Last Admin Trade Name Freq PRN Reason Stop Dose Admin Acetaminophen 1,000 mg 06/19/18 18:11 Ofirmev Injection - IVPB Q6H PRN PAIN SCALE 4-6 Albuterol Sulfate 1 amp 06/19/18 18:11 Ventolin 0.083% Nebulizer Soln - NEB Q4H PRN SHORT OF BREATH/WHEEZING Heparin Sodium (Porcine) 5,000 unit 06/19/18 22:00 06/21/18 15:05 Heparin - SQ Not Given TID CASS Metronidazole 500 mg in 100 mls @ 100 mls/hr 06/20/18 02:00 06/21/18 10:07 Flagyl 500mg Premixed Ivpb - IVPB 100 mls/hr Q8H-IV CASS Administration Piperacillin Sod/Tazobactam 100 mls @ 200 mls/hr 06/19/18 21:00 06/21/18 15: 14 Sod 4.5 gm/ Dextrose IVPB 200 mls/hr Q6H-IV CASS Administration Protocol Pantoprazole Sodium 40 mg 06/20/18 10:00 06/21/18 10:06 Protonix Iv IVPUSH 40 mg DAILY CASS Administration Promethazine HCl 12.5 mg 06/19/18 18:11 Phenergan Injection - IVPB Q6H PRN NAUSEA AND/OR VOMITING Tamsulosin HCl 0.4 mg 06/22/18 08:30 Flomax - PO DAILY@0830 [facility] ASSESSMENT/PLAN: This is a 77 year old male with a history of diverticulosis, otherwise a healthy man, presented to hospital due to perforated sigmoid colon after getting screening colonoscopy. POD#5 ex-lap/Robb's procedure. #Perforated Sigmoid Colon POD #7 ex-lap/Orbb's procedure -gastric contents draining from colostomy -started on soft -pain controlled -bedolla in place; -antibiotics DAy #7 currently on flagyl/zosyn #sepsis secondary to peritonitis; resolving +clostridium in blood -as per ID can switch to tommorow ;po ceftin 500mg bid; +[id number] tid for 7 days #urinary retention: -ML due to inflammation from surgery -flomax - kidney /bladder US unremarkable #MANNY: resolved #hypokalemia; replace; with 40meg K soln #Fluids; LR #Diet: soft DVTppl: heparin sq Visit type - Emergency Visit Emergency Visit: Yes ED Registration Date: 06/14/18 Care time: The patient presented to the Emergency Department on the above date and was hospitalized for further evaluation of their emergent condition. - New Patient This patient is new to me today: No - Critical Care Critical Care patient: No
--- NOTE | 2018-06-21 17:53 | PN ---
Teaching Attending Note Name of Resident: Karoline Bryan ATTENDING PHYSICIAN STATEMENT I saw and evaluated the patient. I reviewed the resident's note and discussed the case with the resident. I agree with the resident's findings and plan as documented with exceptions below. SUBJECTIVE: Patient seen and examined, denies any abdominal pain, having BM in her colostomy. Still with bedolla, wants to ambulate. OBJECTIVE: Vital Signs Period Temp Pulse Resp BP Sys/Mars Pulse Ox Last 24 Hr 98.0 F-98.4 F 76-86 18-20 122-137/69-78 97 Intake & Output 06/18/18 06/19/18 06/20/18 06/21/18 23:59 23:59 23:59 23:59 Intake Total 2976 4225 1665 Output Total 2780 1745 300 Balance 196 2480 1365 Weight 154 lb 12.8 oz 154 lb 7 oz general: sitting in bed in no acute distress Chest: CTAB, no rales or wheezing Abdomen Soft, dressing with no discharge or active bleed, left colostomy with soft brown stool, mild tenderness around surgical site, no voluntary or involuntary guarding or rigidity, positive bowel sounds, no suprapubic or CVA tenderness Extremities: no edema Home Medications Medication Instructions Recorded Aspirin [ASA -] 81 mg PO DAILY 03/13/18 Cholecalciferol (Vitamin D3) 1,000 unit PO DAILY 03/13/18 [Vitamin D3] Folic Acid/Multivit-Min/Lutein 1 each PO DAILY 03/13/18 [Multi-Vitamin Gummies] Active Medications Acetaminophen (Ofirmev Injection -) 1,000 mg IVPB Q6H PRN PRN Reason: PAIN SCALE 4-6 Albuterol Sulfate (Ventolin 0.083% Nebulizer Soln -) 1 amp NEB Q4H PRN PRN Reason: SHORT OF BREATH/WHEEZING Heparin Sodium (Porcine) (Heparin -) 5,000 unit SQ TID CASS Last Admin: 06/21/18 15:05 Dose: Not Given Metronidazole (Flagyl 500mg Premixed Ivpb -) 500 mg in 100 mls @ 100 mls/hr IVPB Q8H-IV CASS Last Admin: 06/21/18 10:07 Dose: 100 mls/hr Piperacillin Sod/Tazobactam (Sod 4.5 gm/ Dextrose) 100 mls @ 200 mls/hr IVPB Q6H-IV CASS; Protocol Last Admin: 06/21/18 15:14 Dose: 200 mls/hr Pantoprazole Sodium (Protonix Iv) 40 mg IVPUSH DAILY [facility] Last Admin: 06/21/18 10:06 Dose: 40 mg Promethazine HCl (Phenergan Injection -) 12.5 mg IVPB Q6H PRN PRN Reason: NAUSEA AND/OR VOMITING Tamsulosin HCl (Flomax -) 0.4 mg PO DAILY@0830 [facility] Laboratory Results - last 24 hr 06/20/18 06/20/18 06/21/18 18:30 22:13 06:25 WBC RBC Hgb Hct MCV MCH MCHC RDW Plt Count MPV Absolute Neuts (auto) Neutrophils % Lymphocytes % Monocytes % Eosinophils % Basophils % Nucleated RBC % Sodium Potassium Chloride Carbon Dioxide Anion Gap BUN Creatinine Creat Clearance w eGFR POC Glucometer 120 121 Random Glucose Calcium Phosphorus Magnesium Urine Color Yellow Urine Appearance Clear Urine pH 7.0 D Ur Specific [place] 1.018 Urine Protein 1+ H Urine Glucose (UA) Negative Urine Ketones 1+ H Urine Blood 1+ H Urine Nitrite Negative Urine Bilirubin Negative Urine Urobilinogen Negative Ur Leukocyte Esterase Trace Urine WBC (Auto) 5 Urine RBC (Auto) 4 Urine Mucus Rare 06/21/18 06/21/18 06:30 06:30 WBC 9.3 RBC 3.67 L Hgb 12.3 Hct 34.8 L MCV 94.9 MCH 33.6 MCHC 35.3 RDW 14.1 Plt Count 257 MPV 8.1 Absolute Neuts (auto) 7.2 Neutrophils % 77.7 Lymphocytes % 11.1 Monocytes % 8.9 Eosinophils % 1.9 Basophils % 0.4 Nucleated RBC % 0 Sodium 142 Potassium 3.7 Chloride 113 H Carbon Dioxide 24 Anion Gap 6 L BUN 8 Creatinine 1.0 Creat Clearance w eGFR > 60 POC Glucometer Random Glucose 117 H Calcium 7.9 L Phosphorus 2.5 Magnesium 2.2 Urine Color Urine Appearance Urine pH Ur Specific [place] Urine Protein Urine Glucose (UA) Urine Ketones Urine Blood Urine Nitrite Urine Bilirubin Urine Urobilinogen Ur Leukocyte Esterase Urine WBC (Auto) Urine RBC (Auto) Urine Mucus Microbiology 06/18/18 05:40 Blood - Peripheral Venous Blood Culture - Preliminary NO GROWTH OBTAINED AFTER 72 HOURS, INCUBATION TO CONTINUE FOR 2 DAYS. 06/18/18 05:30 Blood - Peripheral Venous Blood Culture - Preliminary NO GROWTH OBTAINED AFTER 72 HOURS, INCUBATION TO CONTINUE FOR 2 DAYS. 06/14/18 11:33 Blood - Peripheral Venous Blood Culture - Final NO GROWTH AFTER 5 DAYS INCUBATION 06/14/18 11:33 Blood - Peripheral Venous Blood Culture - Final Clostridium Ramosum 06/14/18 11:42 Urine - Urine [place] Urine Culture - Final NO GROWTH OBTAINED ASSESSMENT AND PLAN: 77 yom with sigmoid perforation post screening colonoscopy -Sigmoid perforation post screening colonoscopy s/p ex lap/nobles's procedure -Acute hypoxic respiratory failure s/p intubation, resolved -Diverticulosis -Acute urinary retention -?Underlying BPH Plan: Surgery/ID input noted. Zosyn/flagyl, plan for po ceftin/flagyl in 24 hours. Drain removal d/c planning, DVTPPX per surgery. Voiding trial in 24 hours, if fails, will d/c with bedolla wiht outpatient urology follow up. Continue flomax. DVTPPX heparin Dipso d/c planning in 24-48 hours if continues to improve pending surgical recommendations. Plan discussed with patient in detail, all questions answered.
[2018-06-22] MEDS ORDERED: DEXTROSE 5%-WATER 100 ML IVPB ONE ×2 (01:22→08:28)
[2018-06-22] MEDS ORDERED: PIPERACILLIN/TAZOBACTAM 4.5 GM VIAL IVPB ONE ×2 (01:22→08:28)
[2018-06-22] MEDS: PIPERACILLIN/TAZOB 4.5 GM 4.5 GM in DEXTROSE 5%-WATER 100 ML IVPB SCH ×2 (03:26→08:35)
[2018-06-22] MEDS: HEPARIN NA (PORCINE) 5,000 UNITS/ML 1ML VIAL SQ SCH ×3 (05:00→21:35)
[2018-06-22 07:58] LABS: BASO % 0.6 % (0-2.0); EOS % 1.5 % (0-4.5); HEMATOCRIT 36.6 % (35.4-49); HEMOGLOBIN 12.6 GM/dL (11.7-16.9); LYMPH % 12.4 % (8-40); MCH 32.4 pg (25.7-33.7); MCHC 34.5 g/dl (32.0-35.9); MEAN CELL VOLUME 93.9 fl (80-96); MONO % 7.7 % (3.8-10.2); NEUT % 77.8 % (42.8-82.8); PLATELET COUNT 307 K/MM3 (134-434); RBC 3.89 M/mm3 (4.00-5.60); RDW 13.7 % (11.9-15.9); WHITE BLOOD COUNT 10.7 K/mm3 (4.0-10.0)
[2018-06-22 08:16] LABS: ANION GAP 8 MMOL/L (8-16); BLOOD UREA NITROGEN 8 mg/dL (7-18); CALCIUM 8.2 mg/dL (8.5-10.1); CHLORIDE 110 mmol/L (98-107); CO2 23 mmol/L (21-32); GLUCOSE,RANDOM 89 mg/dL (74-106); MAGNESIUM 2.6 mg/dL (1.8-2.4); PHOSPHOROUS 3.1 mg/dL (2.5-4.9); POTASSIUM 3.7 mmol/L (3.5-5.1); SODIUM 141 mmol/L (136-145)
[2018-06-22] MEDS: TAMSULOSIN HCL 0.4 MG CAP PO SCH (08:35)
[2018-06-22] MEDS: PANTOPRAZOLE SODIUM 40 MG VIAL IVPUSH SCH (09:51)
[2018-06-22] MEDS ORDERED: BENZOCAINE/MENTH/CETYLPYRD CL 1 EACH LOZENGE MM PRN (10:22)
--- NOTE | 2018-06-22 10:24 | PN ---
Teaching Attending Note Name of Resident: Karoline Bryan ATTENDING PHYSICIAN STATEMENT I saw and evaluated the patient. I reviewed the resident's note and discussed the case with the resident. I agree with the resident's findings and plan as documented with exceptions below. SUBJECTIVE: Patient seen and examined. denies any abdominal pain. Moving his bowels, ambulating better. reports some throat pain and trouble swallowing larger pills , but ok with liquids and soft diet. OBJECTIVE: Vital Signs Period Temp Pulse Resp BP Sys/Mars Pulse Ox Last 24 Hr 98.0 F-98.5 F 82-86 20-20 112-135/63-79 97 Intake & Output 06/19/18 06/20/18 06/21/18 06/22/18 23:59 23:59 23:59 23:59 Intake Total 2976 4225 2185 450 Output Total 2780 4857 596 7975 Balance 196 2480 1505 -750 Weight 154 lb 12.8 oz 154 lb 7 oz General: ambulating in hallway with walker, no acute distress Chest: CTAb, no rales or wheezing Abdomen:Soft, mild distension, midline dressing clean, dwight in place, left colostomy (bag recently emptied), NT exam, positive bowel sounds, no suprapubic or CVA tenderness Extremities: no edema Active Medications Acetaminophen (Ofirmev Injection -) 1,000 mg IVPB Q6H PRN PRN Reason: PAIN SCALE 4-6 Albuterol Sulfate (Ventolin 0.083% Nebulizer Soln -) 1 amp NEB Q4H PRN PRN Reason: SHORT OF BREATH/WHEEZING Benzocaine/Menthol (Cepacol Lozenge -) 1 each MM PRN PRN PRN Reason: SORE THROAT Heparin Sodium (Porcine) (Heparin -) 5,000 unit SQ TID CASS Last Admin: 06/22/18 05:00 Dose: Not Given Metronidazole (Flagyl 500mg Premixed Ivpb -) 500 mg in 100 mls @ 100 mls/hr IVPB Q8H-IV CASS Last Admin: 06/22/18 09:51 Dose: 100 mls/hr Piperacillin Sod/Tazobactam (Sod 4.5 gm/ Dextrose) 100 mls @ 200 mls/hr IVPB Q6H-IV CASS; Protocol Last Admin: 06/22/18 08:35 Dose: 200 mls/hr Pantoprazole Sodium (Protonix Iv) 40 mg IVPUSH DAILY [facility] Last Admin: 06/22/18 09:51 Dose: 40 mg Promethazine HCl (Phenergan Injection -) 12.5 mg IVPB Q6H PRN PRN Reason: NAUSEA AND/OR VOMITING Tamsulosin HCl (Flomax -) 0.4 mg PO DAILY@0830 [facility] Last Admin: 06/22/18 08:35 Dose: 0.4 mg Laboratory Results - last 24 hr 06/22/18 06/22/18 06:15 06:15 WBC 10.7 H RBC 3.89 L Hgb 12.6 Hct 36.6 MCV 93.9 MCH 32.4 MCHC 34.5 RDW 13.7 Plt Count 307 MPV 8.0 Absolute Neuts (auto) 8.3 H Neutrophils % 77.8 Lymphocytes % 12.4 Monocytes % 7.7 Eosinophils % 1.5 Basophils % 0.6 Nucleated RBC % 0 Sodium 141 Potassium 3.7 Chloride 110 H Carbon Dioxide 23 Anion Gap 8 BUN 8 Creatinine 1.0 Creat Clearance w eGFR > 60 Random Glucose 89 Calcium 8.2 L Phosphorus 3.1 Magnesium 2.6 H Microbiology 06/18/18 05:40 Blood - Peripheral Venous Blood Culture - Preliminary NO GROWTH OBTAINED AFTER 96 HOURS, INCUBATION TO CONTINUE FOR 1 DAYS. 06/18/18 05:30 Blood - Peripheral Venous Blood Culture - Preliminary NO GROWTH OBTAINED AFTER 96 HOURS, INCUBATION TO CONTINUE FOR 1 DAYS. 06/14/18 11:33 Blood - Peripheral Venous Blood Culture - Final NO GROWTH AFTER 5 DAYS INCUBATION 06/14/18 11:33 Blood - Peripheral Venous Blood Culture - Final Clostridium Ramosum 06/14/18 11:42 Urine - Urine [place] Urine Culture - Final NO GROWTH OBTAINED ASSESSMENT AND PLAN: 77 yom with sigmoid perforation post screening colonoscopy -Sigmoid perforation post screening colonoscopy s/p ex lap/nobles's procedure -Acute hypoxic respiratory failure s/p intubation, resolved -Diverticulosis -Acute urinary retention -?Underlying BPH Plan: Surgery/ID input noted. Zosyn/flagyl, plan for po ceftin/flagyl in 24 hours. D/c bedolla, voiding trial. Continue flomax, if fails will need to dc with bedolla with outpatient urology follow up. Ambulate TID, patient encouraged. Nursing concerned about patient adjusting to colostomy and possible depression. Patient pleasant, no active SI/HI. Psychology consult Dr. Espino. Discuss with Dr. Tripathi, about d/c planning and wound care follow up. DVTPPX heparin Dipso d/c planning to SNF in 24 hours if continues to improve, on PO abx if cleared from surgical standpoint. Plan discussed with patient and nursing in detail, all questions answered.
--- NOTE | 2018-06-22 10:45 | PN ---
Progress Note (short form) - Note Progress Note: Attending Surgeon POD #7 No c/o; tolerating diet; FC out this AM; awaiting void VSS AF abdo-wound open and healing; dwight in place around the umbilicus; ostomy is functioning WBC-10.7 IMP: doing well PLAN: TOV; oral antibiotics as per ID recommendations; he will be going to a SNF post d/c for wound care. Sebas Tripathi MD FACS
--- NOTE | 2018-06-22 11:51 | CONSULT ---
Admitting History and Physical - Primary Care Physician PCP: Marycruz Ochoa - Admission History of Present Illness: Per EMR 77 yom with sigmoid perforation post screening colonoscopy -Sigmoid perforation post screening colonoscopy s/p ex lap/nobles's procedure -Acute hypoxic respiratory failure s/p intubation, resolved -Diverticulosis -Acute urinary retention -?Underlying BPH reports some throat pain and trouble swallowing larger pills, but ok with liquids and soft diet. Extubated 06/16 Selected Entries 06/21/18 06/21/18 06/21/18 10:00 15:05 18:38 Breakfast Supper Temperature 98.4 F 98.0 F 98.3 F 06/21/18 06/21/18 06/22/18 22:00 23:00 10:00 Breakfast Supper 0 Temperature 98.5 F 98.4 F 06/22/18 10:26 Breakfast 25% Supper Temperature Laboratory Tests 06/21/18 06/22/18 06:30 06:15 WBC 9.3 10.7 H Pt was on clear liquids until yesterday when upgraded to soft diet. History Source: Patient, Family Member, Medical Record Limitations to Obtaining History: No Limitations, Clinical Condition (Resistant to swallowing assessment because he was concerned about drinking and not voiding ) - Past Medical History Gastrointestinal: Yes: Diverticulosis, Hemorrhoids (hemorrhoidectomy), Other ( inguinal hernias) - Past Surgical History Past Surgical History: Yes: Colonoscopy - Smoking History Smoking history: Never smoked - Alcohol/Substance Use Hx Alcohol Use: Yes Number of Drinks Daily: 2 (glasses of wine) History of Substance Use: reports: None - Social History ADL: Independent 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 History - Admission Reason For Visit: PERFORATED ABDOMINAL VISCUS - Diagnostics X-ray: Report Reviewed (06/16) - General Mental Status: Alert and Oriented, Awake and Alert, Able to Follow Commands Attention: Intact Ability to Follow Directions: Good Head/Neck Control: WFL - Hearing Hearing: Normal Speech Evaluation - Communication Primary Language: FINNISH Oral Expression Ability: Yes: Mild Impairment - Speech Production Able to Make Needs Known: Yes: WNL Intelligibility: Yes: Mildly Impaired - Speech Characteristics Voice Loudness: Mildly Soft/Quiet Voice Pitch: Yes: Normal Voice Phonatory-based Quality: Yes: Dysphonia (mild. 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 Memory: Yes: WNL Short Term Memory: Yes: WNL - Swallow Evaluation/Bedside Assessment Current Nutritional Intake: Soft, Thin Liquids Oral Secretions: Yes: WFL Dentition: Yes: Adequate Facial Symmetry at Rest: Symmetrical Facial Symmetry on Retraction: Symmetrical Facial Movement: Controlled Against Resistance Opening: Normal Against Resistance Closing: Normal Pucker Lips: Normal Smile: Normal Lingual Movement: Normal, Symmetric Lingual Speed of Movement: Normal Lingual Movement Strgth Against Opposition: Normal Lingual Movement Characteristics: Normal Velopharyngeal Movement: Normal Laryngeal Elevation: WFL Laryngeal Movement: Able to Palpate Rate of Intake: WFL Bolus Size: WFL Labial Seal: WFL Chewing: WFL Oral Prep Time: WFL A-P Transit: WFL Pocketing: None Timing of Swallow: WFL Coughing/Throat Clear: Yes (Throat clearing on saliva and thin liquids) Recommendations - Speech Evaluation, Impression/Plan Impression: Throat clearing on saliva and thin liquids. Dysphonic post extubation, improving but not yet to baseline. Aspiration? - Dysphagia Impressions/Plan Dysphagia Impressions: Risk of Aspiration, Ongoing Evaluation *Silent aspiration: cannot be R/O at bedside Recommendations: ENT Consult (visualize vocal cords), Modified Barium Swallow, Other (Consider repeat CXR)
[2018-06-22] MEDS: CEFUROXIME AXETIL 500 MG TABLET PO SCH ×2 (14:15→21:35)
[2018-06-22] MEDS: metroNIDAZOLE 250 MG TABLET PO SCH ×2 (14:16→21:34)
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
--- NOTE | 2018-06-22 19:22 | PN ---
Physical Exam: SUBJECTIVE: Patient seen and examined OBJECTIVE: Vital Signs Period Temp Pulse Resp BP Sys/Mars Pulse Ox Last 24 Hr 97.7 F-98.5 F 86-101 20-20 114-128/68-79 97-97 GENERAL: The patient is awake, alert, and fully oriented, in no acute distress. HEAD: Normal with no signs of trauma. EYES: PERRL, extraocular movements intact, sclera anicteric, conjunctiva clear. No ptosis. ENT: Ears normal, nares patent, oropharynx clear without exudates, moist mucous membranes. NECK: Trachea midline, full range of motion, supple. LUNGS: Breath sounds equal, clear to auscultation bilaterally, no wheezes, no crackles, no accessory muscle use. HEART: Regular rate and rhythm, S1, S2 without murmur, rub or gallop. ABDOMEN: with colostomy bag in place EXTREMITIES: 2+ pulses, warm, well-perfused, no edema. NEUROLOGICAL: Cranial nerves II through XII grossly intact. Normal speech, gait not observed. PSYCH: Normal mood, normal affect. SKIN: maculopapular rash back and abdomen Laboratory Results - last 24 hr 06/22/18 06/22/18 06:15 06:15 WBC 10.7 H RBC 3.89 L Hgb 12.6 Hct 36.6 MCV 93.9 MCH 32.4 MCHC 34.5 RDW 13.7 Plt Count 307 MPV 8.0 Absolute Neuts (auto) 8.3 H Neutrophils % 77.8 Lymphocytes % 12.4 Monocytes % 7.7 Eosinophils % 1.5 Basophils % 0.6 Nucleated RBC % 0 Sodium 141 Potassium 3.7 Chloride 110 H Carbon Dioxide 23 Anion Gap 8 BUN 8 Creatinine 1.0 Creat Clearance w eGFR > 60 Random Glucose 89 Calcium 8.2 L Phosphorus 3.1 Magnesium 2.6 H Active Medications Generic Name Dose Route Start Last Admin Trade Name Freq PRN Reason Stop Dose Admin Albuterol Sulfate 1 amp 06/19/18 18:11 Ventolin 0.083% Nebulizer Soln - NEB Q4H PRN SHORT OF BREATH/WHEEZING Benzocaine/Menthol 1 each 06/22/18 10:22 Cepacol Lozenge - MM PRN PRN SORE THROAT Cefuroxime Axetil 500 mg 06/22/18 12:30 06/22/18 14:15 Ceftin - PO 500 mg BID [facility] Administration Heparin Sodium (Porcine) 5,000 unit 06/19/18 22:00 06/22/18 13:36 Heparin - SQ Not Given TID [facility] Metronidazole 500 mg 06/22/18 14:00 06/22/18 14:16 Flagyl - PO 500 mg TID [facility] Administration Pantoprazole Sodium 20 mg 06/23/18 10:00 Protonix - PO DAILY [facility] Promethazine HCl 12.5 mg 06/19/18 18:11 Phenergan Injection - IVPB Q6H PRN NAUSEA AND/OR VOMITING Tamsulosin HCl 0.4 mg 06/22/18 08:30 06/22/18 08:35 Flomax - PO 0.4 mg DAILY@0830 [facility] Administration ASSESSMENT/PLAN: This is a 77 year old male with a history of diverticulosis, otherwise a healthy man, presented to hospital due to perforated sigmoid colon after getting screening colonoscopy. POD#5 ex-lap/Robb's procedure. #Perforated Sigmoid Colon POD #8 ex-lap/Robb's procedure -gastric contents draining from colostomy -started on soft -pain controlled -bedolla in place; -po antibiotics #sepsis secondary to peritonitis; resolving +clostridium in blood -as per ID can switch to tommorow ;po ceftin 500mg bid; +[id number] tid for 7 days #urinary retention: -ML due to inflammation from surgery -flomax - kidney /bladder US unremarkable -voiding trial #MANNY: resolved #hypokalemia; replaced; # rash; adverse reaction to medication vs contact dermatitis from plastic #Fluids; LR #Diet: soft DVTppl: heparin sq Visit type - Emergency Visit Emergency Visit: Yes ED Registration Date: 06/14/18 Care time: The patient presented to the Emergency Department on the above date and was hospitalized for further evaluation of their emergent condition. - New Patient This patient is new to me today: No - Critical Care Critical Care patient: No
[2018-06-22] MEDS ORDERED: PT OWN MED DRAWER 7, Y5N ONE (21:17)
[2018-06-23] MEDS: HEPARIN NA (PORCINE) 5,000 UNITS/ML 1ML VIAL SQ SCH ×2 (06:28→13:38)
[2018-06-23] MEDS: metroNIDAZOLE 250 MG TABLET PO SCH ×2 (06:30→13:38)
[2018-06-23 07:06] LABS: BASO % 0.6 % (0-2.0); EOS % 1.1 % (0-4.5); HEMATOCRIT 38.3 % (35.4-49); HEMOGLOBIN 13.3 GM/dL (11.7-16.9); LYMPH % 10.8 % (8-40); MCH 32.9 pg (25.7-33.7); MCHC 34.7 g/dl (32.0-35.9); MEAN CELL VOLUME 94.9 fl (80-96); MEAN PLT VOLUME 8.2 fl (7.5-11.1); MONO % 8.7 % (3.8-10.2); NEUT % 78.8 % (42.8-82.8); PLATELET COUNT 357 K/MM3 (134-434); RBC 4.04 M/mm3 (4.00-5.60); RDW 13.8 % (11.9-15.9); WHITE BLOOD COUNT 10.5 K/mm3 (4.0-10.0)
[2018-06-23 07:33] LABS: ANION GAP 6 MMOL/L (8-16); BLOOD UREA NITROGEN 9 mg/dL (7-18); CALCIUM 8.4 mg/dL (8.5-10.1); CHLORIDE 109 mmol/L (98-107); CO2 28 mmol/L (21-32); GLUCOSE,RANDOM 109 mg/dL (74-106); POTASSIUM 4.1 mmol/L (3.5-5.1); SODIUM 143 mmol/L (136-145)
[2018-06-23] MEDS: TAMSULOSIN HCL 0.4 MG CAP PO SCH (08:02)
[2018-06-23] MEDS ORDERED: PT OWN MED DRAWER 7, Y5N ONE ×2 (09:02→13:33)
[2018-06-23] MEDS: CEFUROXIME AXETIL 500 MG TABLET PO SCH (09:14)
[2018-06-23] MEDS ORDERED: PANTOPRAZOLE 20 MG TABLET (FP) PO SCH (10:00)
--- NOTE | 2018-06-23 13:21 | PN ---
Teaching Attending Note Name of Resident: Karoline Bryan ATTENDING PHYSICIAN STATEMENT I saw and evaluated the patient. I reviewed the resident's note and discussed the case with the resident. I agree with the resident's findings and plan as documented with exceptions below. SUBJECTIVE: Patient seen and examined. Denies any pain, tolerating diet well. had bedolla re- inserted overnight. Tolerating soft diet well. OBJECTIVE: Vital Signs Period Temp Pulse Resp BP Sys/Mars Pulse Ox Last 24 Hr 97.7 F-98.9 F 90-101 20-20 114-127/64-70 95-98 Intake & Output 06/20/18 06/21/18 06/22/18 06/23/18 23:59 23:59 23:59 23:59 Intake Total 4225 2185 1350 250 Output Total 2391 747 7066 Balance 2480 1505 -1550 250 Weight 154 lb 7 oz 149 lb 3.2 oz General: sitting in bed in no acute distress Chest: CTAB, no rales or wheezing Abdomen:soft, NT, colostomy in place, Wound dressing clean, bedolla cath in place , no CVA or suprapubic tenderness Extremities: no edema Home Medications Medication Instructions Recorded Aspirin [ASA -] 81 mg PO DAILY 03/13/18 Cholecalciferol (Vitamin D3) 1,000 unit PO DAILY 03/13/18 [Vitamin D3] Folic Acid/Multivit-Min/Lutein 1 each PO DAILY 03/13/18 [Multi-Vitamin Gummies] Cefuroxime Axetil [Ceftin -] 500 mg PO BID 6 Days #12 tablet 06/23/18 Metronidazole 500 mg PO TID 6 Days #18 tablet 06/23/18 Tamsulosin HCl [Flomax -] 0.4 mg PO DAILY@0830 cap.er.24h 06/23/18 Active Medications Albuterol Sulfate (Ventolin 0.083% Nebulizer Soln -) 1 amp NEB Q4H PRN PRN Reason: SHORT OF BREATH/WHEEZING Benzocaine/Menthol (Cepacol Lozenge -) 1 each MM PRN PRN PRN Reason: SORE THROAT Cefuroxime Axetil (Ceftin -) 500 mg PO BID [facility] Last Admin: 06/23/18 09:14 Dose: 500 mg Heparin Sodium (Porcine) (Heparin -) 5,000 unit SQ TID [facility] Last Admin: 06/23/18 06:28 Dose: Not Given Metronidazole (Flagyl -) 500 mg PO TID [facility] Last Admin: 06/23/18 06:30 Dose: 500 mg Pantoprazole Sodium (Protonix -) 20 mg PO DAILY [facility] Last Admin: 06/23/18 09:13 Dose: 20 mg Promethazine HCl (Phenergan Injection -) 12.5 mg IVPB Q6H PRN PRN Reason: NAUSEA AND/OR VOMITING Tamsulosin HCl (Flomax -) 0.4 mg PO DAILY@0830 [facility] Last Admin: 06/23/18 08:02 Dose: 0.4 mg Laboratory Results - last 24 hr 06/23/18 06/23/18 06:30 06:30 WBC 10.5 H RBC 4.04 Hgb 13.3 Hct 38.3 MCV 94.9 MCH 32.9 MCHC 34.7 RDW 13.8 Plt Count 357 MPV 8.2 Absolute Neuts (auto) 8.2 H Neutrophils % 78.8 Lymphocytes % 10.8 Monocytes % 8.7 Eosinophils % 1.1 Basophils % 0.6 Nucleated RBC % 0 Sodium 143 Potassium 4.1 Chloride 109 H Carbon Dioxide 28 Anion Gap 6 L BUN 9 Creatinine 1.0 Creat Clearance w eGFR 72.85 Random Glucose 109 H Calcium 8.4 L Microbiology 06/18/18 05:40 Blood - Peripheral Venous Blood Culture - Final NO GROWTH AFTER 5 DAYS INCUBATION 06/18/18 05:30 Blood - Peripheral Venous Blood Culture - Final NO GROWTH AFTER 5 DAYS INCUBATION 06/14/18 11:33 Blood - Peripheral Venous Blood Culture - Final NO GROWTH AFTER 5 DAYS INCUBATION 06/14/18 11:33 Blood - Peripheral Venous Blood Culture - Final Clostridium Ramosum 06/14/18 11:42 Urine - Urine Bedolla Urine Culture - Final NO GROWTH OBTAINED ASSESSMENT AND PLAN: 77 yom with sigmoid perforation post screening colonoscopy -Sigmoid perforation post screening colonoscopy s/p ex lap/nobles's procedure -Acute hypoxic respiratory failure s/p intubation, resolved -Diverticulosis -Acute urinary retention -?Underlying BPH Plan: Doing well, Discussed with daryn Ramirez for dc. ID input noted. Ceftin/flagyl for 6 more days. failed voiding trial. Continue flomax, outpatient urology follow up. Discussed with speech therapist, outpatient ENT follow up and MBS. Soft diet for now. D/c to [facility] today with outpatient surgery, urology, ENT and speech therapy follow up. Plan discussed with patient, nursing and CM, all questions answered.
[2018-06-23 14:13] VITALS: BP 111/60; PULSE 93; TEMP 97.9
--- NOTE | 2018-06-23 15:27 | PN ---
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 Swallowing f/u at [facility]. Monitor pulmonary status. OPD MBS/ENT to visualize vocal cords, as indicated.
--- NOTE | 2018-06-23 18:46 | DS ---
Physical Exam: SUBJECTIVE: Patient seen and examined OBJECTIVE: Vital Signs Period Temp Pulse Resp BP Sys/Mars Pulse Ox Last 24 Hr 97.8 F-98.9 F 92-101 20-20 111-127/60-70 95-98 PHYSICAL EXAM GENERAL: The patient is awake, alert, and fully oriented, in no acute distress. HEAD: Normal with no signs of trauma. EYES: PERRL, extraocular movements intact, sclera anicteric, conjunctiva clear. ENT: Ears normal, nares patent, oropharynx clear without exudates, moist mucous membranes. NECK: Trachea midline, full range of motion, supple. LUNGS: Breath sounds equal, clear to auscultation bilaterally, no wheezes, no crackles, no accessory muscle use. HEART: Regular rate and rhythm, S1, S2 without murmur, rub or gallop. ABDOMEN: Soft, nontender, nondistended, normoactive bowel sounds, no guarding, no rebound, no hepatosplenomegaly, no masses. EXTREMITIES: 2+ pulses, warm, well-perfused, no edema. NEUROLOGICAL: Cranial nerves II through XII grossly intact. Normal speech, gait not observed. PSYCH: Normal mood, normal affect. SKIN: Warm, dry, normal turgor, no rashes or lesions noted. LABS Laboratory Results - last 24 hr 06/23/18 06/23/18 06:30 06:30 WBC 10.5 H RBC 4.04 Hgb 13.3 Hct 38.3 MCV 94.9 MCH 32.9 MCHC 34.7 RDW 13.8 Plt Count 357 MPV 8.2 Absolute Neuts (auto) 8.2 H Neutrophils % 78.8 Lymphocytes % 10.8 Monocytes % 8.7 Eosinophils % 1.1 Basophils % 0.6 Nucleated RBC % 0 Sodium 143 Potassium 4.1 Chloride 109 H Carbon Dioxide 28 Anion Gap 6 L BUN 9 Creatinine 1.0 Creat Clearance w eGFR 72.85 Random Glucose 109 H Calcium 8.4 L HOSPITAL COURSE: Date of Admission:06/14/18 Date of Discharge: 06/23/18 This is a 77 year old male with a history of diverticulosis, otherwise a healthy man, presented to hospital due to perforated sigmoid colon after getting screening colonoscopy. S/P ex-lap/Robb's procedure. Sepsis secondary to peritonitis treated with IV zosyn. Discharged to rehab on 6 more days of flagyl, and ceftin. HE has had urinary retention since surgery and had bedolla in place. Failed voiding trials. He is currently on flomax and will follow up with urology as an outpatient. Minutes to complete discharge: 40 Discharge Summary Reason For Visit: PERFORATED ABDOMINAL VISCUS Condition: Stable - Instructions Diet, Activity, Other Instructions: Dr. Tripathi Discharge Instructions Dear SUKI SUAZO, Post Operative Instructions Physical activity Resume your normal everyday activity as tolerated no heavy lifting or exercise until seen by your surgeon. You may walk unlimited amounts of and climb stairs. You may resume driving the car when you feel safe and comfortable behind the wheel. Wound care Normal saline wet to dry all gauze dressing changes two times a day; in addition patient may shower; ostomy appliance to be changed as needed. Diet There are no dietary restrictions. Eat healthy, high-fiber foods. Drink 6 to 8 glasses of liquid each day. This will assist in keeping your bowels are regular. Pain management You may take Tylenol or acetaminophen or Ibuprofen (for example, Motrin, Advil etc.) Any pain prescription medication ordered should be taken as prescribed for moderate to severe pain. Call Dr. Tripathi for any of the following: Severe pain not relieved by medication Fever of 101 or higher Excessive bleeding or drainage on dressing Inability to urinate Call the office at [phone] for a post operative appointment in 7 - 10 days after discharge. MEDICAL INSTRUCTIONS: Antibiotics ceftin and flagyl as instructed for 6 more days. Continue medication flomax as directed. Notify your doctor if any dizziness noted on this medication. FOLLOW UP: Primary care physician in 1 week Urology follow up in 1 week (please discuss voiding trial and further plan for bedolla catheter and testing) You were evaluated by speech therapist and recommended outpatient ENT follow up and Barium study. Please discuss with your doctor (ENT and speech therapist information provided above). Soft diet as tolerated. If you notice any fevers, chills, belly pain, back pain or any new concerns, please call 911 or come to the ED. Referrals: Sebas Tripathi MD [Staff Physician] - 1 Week Ricky Calloway MD [Staff Physician] - 1 Week Brianne Duvall MS, [facility] [Speech Therapist] - Sabino Etienne MD [Primary Care Provider] - 1 Week Ricky Aguillon MD [Staff Physician] - [facility]position[facility] - Home Medications Comprehensive Discharge Medication List: Ambulatory Orders Aspirin [ASA -] 81 mg PO DAILY 03/13/18 Cholecalciferol (Vitamin D3) [Vitamin D3] 1,000 unit PO DAILY 03/13/18 Folic Acid/Multivit-Min/Lutein [Multi-Vitamin Gummies] 1 each PO DAILY 03/13/18 Cefuroxime Axetil [Ceftin -] 500 mg PO BID 6 Days #12 tablet 06/23/18 Metronidazole 500 mg PO TID 6 Days #18 tablet 06/23/18 Tamsulosin HCl [Flomax -] 0.4 mg PO DAILY@0830 cap.er.24h 06/23/18 This patient is new to me today: Yes Date on this admission: 06/23/18 Emergency Visit: Yes ED Registration Date: 06/14/18 Care time: The patient presented to the Emergency Department on the above date and was hospitalized for further evaluation of their emergent condition. Critical Care patient: No - Discharge Referral Referred to [facility] Med [facility] No
== END 2018-06-23 17:05 | DRG 329 ==
LOC: JER 10:42 → JERBED 11:38 → JICU 18:07 → J7W 06-19 17:03
PROVIDERS: ADMIT Internal Medicine; ATTEND Hospitalist
PROC: 0D1N0Z4 Bypass Sigmoid Colon to Cutaneous, Open Approach (ICD-10-PCS; 2018-06-14)
PROC: 0WJJ0ZZ Inspection of Pelvic Cavity, Open Approach (ICD-10-PCS; 2018-06-14)
PROC: 5A1935Z Respiratory Ventilation, Less than 24 Consecutive Hours (ICD-10-PCS; 2018-06-14)
PROC: 0BH17EZ Insertion of Endotracheal Airway into Trachea, Via Natural or Artificial Opening (ICD-10-PCS; 2018-06-14)
PROC: 0DBN0ZZ Excision of Sigmoid Colon, Open Approach (ICD-10-PCS; principal; 2018-06-14 14:00)
DX: K63.1 Perforation of intestine (nontraumatic) (principal); J96.01 Acute respiratory failure with hypoxia; A41.9 Sepsis, unspecified organism; K65.9 Peritonitis, unspecified; G93.41 Metabolic encephalopathy; E87.2 Acidosis; N17.9 Acute kidney failure, unspecified; D72.829 Elevated white blood cell count, unspecified; E87.6 Hypokalemia; R33.9 Retention of urine, unspecified; K57.30 Diverticulosis of large intestine without perforation or abscess without bleeding; K40.20 Bilateral inguinal hernia, without obstruction or gangrene, not specified as recurrent
CPT/HCPCS: 36415; 36600; 71045-TC-FY; 76775-TC; 76856-TC; 80048; 80053; 80061; 80076; 81003; 81015; 82436; 82550; 82803; 82962; 83605; 83721; 83735; 84100; 84133; 84300; 84484; 85025; 85027; 85610; 85730; 86850; 86900; 86901; 87040; 87076; 87086; 88307-TC; 93005; 93010; 94002; 94640; 97116-GP; 97162-GP; 99285-25; J0131; J1644; J7030

== ENCOUNTER 2019-01-14 19:25 | Emergency (ER) | payer OTHER ==
[2019-01-14 20:04] VITALS: BP 122/69; PULSE 95; TEMP 97.9; BMI 21.4
--- NOTE | 2019-01-14 23:00 | PDOC ---
Documentation entered by Yesenia Vazquez SCRIBE, acting as scribe for Se Dodge MD. Se Dodge MD: This documentation has been prepared by the George live Aiswarya, SCRIBE, under my direction and personally reviewed by me in its entirety. I confirm that the documentation accurately reflects all work, treatment, procedures, and medical decision making performed by me. History of Present Illness - General Chief Complaint: Urinary Catheter Problem Stated Complaint: URINARY CATHETER PROBLEM History Source: Patient Exam Limitations: No Limitations - History of Present Illness Initial Comments: 01/14/19 20:28 The patient is a 89 year old male, with a significant PMH of perforated bowel ( 06/14/2018), HLD, who presents to the emergency department with concerns regarding his urinary catheter. The patient states he went to the hospital Jan 10 for an ostomy closure and hernia repair. He reports being discharged from the hospital today with a urinary catheter and came in further evaluation with concerns of catheter function. Patient currently endorses associated symptoms of urinary retention. The patient denies fever, chills, nausea, vomit, diarrhea and constipation. Denies frequency, urgency and hematuria. Allergies: NKDA Past surgical history: colonoscopy and hernia repair Social history: None reported PCP: Armin Etienne Past History - Past Medical History Allergies/Adverse Reactions: Allergies Allergy/AdvReac Type Severity Reaction Status Date / Time No Known Allergies Allergy Verified 06/14/18 12:31 Home Medications: Ambulatory Orders Cholecalciferol (Vitamin D3) [Vitamin D3] 1,000 unit PO DAILY 03/13/18 Folic Acid/Multivit-Min/Lutein [Multi-Vitamin Gummies] 1 each PO DAILY 03/13/18 Tamsulosin HCl [Flomax -] 0.4 mg PO HS 01/14/19 Anemia: No Asthma: No Cancer: No Cardiac Disorders: No CVA: No COPD: No CHF: No Dementia: No Diabetes: No GI Disorders: Yes (perforated bowel 06/14/2018) Disorders: No HTN: No Hypercholesterolemia: Yes (WAS ON STATINS "ON AND OFF"-PRESENTLY OFF) Liver Disease: No Seizures: No Thyroid Disease: No - Surgical History Abdominal Surgery: Yes (Colonoscopy) Appendectomy: No Cardiac Surgery: No Cholecystectomy: No Lung Surgery: No Neurologic Surgery: No Orthopedic Surgery: No - Psycho Social/Smoking Cessation Hx Smoking History: Never smoked Have you smoked in the past 12 months: No Hx Alcohol Use: Yes Drug/Substance Use Hx: No Substance Use Type: Alcohol Hx Substance Use Treatment: No Review of Systems - Review of Systems Able to Perform ROS?: Yes Comments:: 01/14/19 20:28 GENERAL/CONSTITUTIONAL: No fever or chills. No weakness. HEAD, EYES, EARS, NOSE AND THROAT: No change in vision. No ear pain or discharge. No sore throat. CARDIOVASCULAR: No chest pain or shortness of breath. RESPIRATORY: No cough, wheezing, or hemoptysis. GASTROINTESTINAL: No nausea, vomiting, diarrhea or constipation. GENITOURINARY:+Urinary retention No dysuria, frequency, or change in urination. MUSCULOSKELETAL: No joint or muscle swelling or pain. No neck or back pain. SKIN: No rash NEUROLOGIC: No headache, vertigo, loss of consciousness, or change in strength/ sensation. *Physical Exam - Vital Signs Last Vital Signs Temp Pulse Resp BP Pulse Ox 97.9 F 95 H 18 122/69 96 01/14/19 19:37 01/14/19 19:37 01/14/19 19:37 01/14/19 19:37 01/14/19 19:37 - Physical Exam Comments: 01/14/19 20:38 ADULT EXAM GENERAL: Awake, alert, and fully oriented, in no acute distress LUNGS: Breath sounds equal, clear to auscultation bilaterally. No wheezes, and no crackles HEART: Regular rate and rhythm, normal S1 and S2, no murmurs, rubs or gallops ABDOMEN:+Suprapubic tenderness. Soft, nontender, normoactive bowel sounds. No guarding, no rebound. No masses EXTREMITIES: Normal range of motion, no edema. No clubbing or cyanosis. No cords, erythema, or tenderness NEUROLOGICAL: Cranial nerves II through XII grossly intact. Normal speech, normal gait SKIN: +healing surgical scar ED Treatment Course - ADDITIONAL ORDERS Additional order review: Laboratory Results 01/14/19 20:45 Urine Color Yellow Urine Appearance Clear Urine pH 8.0 Urine Protein Negative Urine Glucose (UA) Negative Urine Ketones Negative Urine Blood 2+ H Urine Nitrite Negative Urine Bilirubin Negative Urine Urobilinogen 0.2 Ur Leukocyte Esterase Trace H Medical Decision Making - Medical Decision Making 01/15/19 05:43 post-void residual: 185cc catheter replaced fu in place Discharge - Discharge Information Problems reviewed: Yes Clinical Impression/Diagnosis: Malfunction of Zambrano catheter Qualifiers: Encounter type: initial encounter Qualified Code(s): T83.011A - Breakdown ( mechanical) of indwelling urethral catheter, initial encounter Condition: Good Disposition: HOME - Follow up/Referral Referrals: Sabino Etienne MD [Primary Care Provider] - - Patient Discharge Instructions Patient Printed Discharge Instructions: How to Care for Your Zambrano Catheter -- Male - Post Discharge Activity
[2019-01-14 23:36] LABS: EPITHELIAL CELLS FEW /hpf
== END 2019-01-14 21:30 | disposition home or self-care (01) ==
LOC: FER 19:25
PROC: 0T9B70Z Drainage of Bladder with Drainage Device, Via Natural or Artificial Opening (ICD-10-PCS; principal; 2019-01-14)
DX: T83.011A Breakdown (mechanical) of indwelling urethral catheter, initial encounter (principal); K92.9 Disease of digestive system, unspecified; E78.00 Pure hypercholesterolemia, unspecified
CPT/HCPCS: 81003; 81015; 87086; 99283-25

== ENCOUNTER 2019-01-18 06:28 | Emergency (ER) | payer OTHER ==
[2019-01-18 06:39] VITALS: BMI 18.1
[2019-01-18] MEDS ORDERED: FAMOTIDINE 20 MG TABLET PO ONE ×2 (07:04→07:10)
[2019-01-18] MEDS ORDERED: FAMOTIDINE 20 MG TABLET ONE (07:05)
--- NOTE | 2019-01-18 07:09 | PDOC ---
History of Present Illness - General Chief Complaint: Pain Stated Complaint: FEVER Time Seen by Provider: 01/18/19 07:03 - History of Present Illness Initial Comments: 01/18/19 07:04 This 78-year-old man with a history of HLD/BPH/diverticular disease,s/p colonic perforation and subsequent resection/colostomy. He had reversal of colostomy on 01/[address] [facility] and discharged with urinary catheter in place. He was seen here 01/14 with malfunctioning of catheter (leaking secondary to underinflated balloon) and discharged. Since then, patient states that he has had gradually increasing discomfort in his abdomen. Patient had been discharged from [facility] with ibuprofen, gabapentin and tramadol for pain relief. Patient states that he did not tolerate these medications secondary to abdominal discomfort and subsequently discontinued them 2 days ago (patient had spoken to his doctors at [facility] prior to stopping the meds). He currently is not taking any medication for pain. In the last 2 days, he has decreased appetite and epigastric discomfort but denies nausea/vomiting. He has been having bowel movements since discharge, last BM yesterday (small amount of semisolid stool). No history of peptic ulcer disease/GERD/gastritis. On no medications currently (Flomax was only preoperative medication) No known allergies Denies smoking/alcohol/other drug use Past History - Past Medical History Allergies/Adverse Reactions: Allergies Allergy/AdvReac Type Severity Reaction Status Date / Time No Known Allergies Allergy Verified 01/18/19 06:33 Home Medications: Ambulatory Orders Tamsulosin HCl [Flomax -] 0.4 mg PO HS 01/14/19 Pantoprazole Sodium [Protonix] 40 mg PO RENETTA #10 radhika. 01/18/19 Anemia: No Asthma: No Cancer: No Cardiac Disorders: No CVA: No COPD: No CHF: No Dementia: No Diabetes: No GI Disorders: Yes (perforated bowel 06/14/2018) Disorders: No HTN: No Hypercholesterolemia: Yes (WAS ON STATINS "ON AND OFF"-PRESENTLY OFF) Liver Disease: No Seizures: No Thyroid Disease: No - Surgical History Abdominal Surgery: Yes (Colonoscopy) Appendectomy: No Cardiac Surgery: No Cholecystectomy: No GI Surgery: Yes (OSTOMY CLOSURE 01/10/19) Lung Surgery: No Neurologic Surgery: No Orthopedic Surgery: No - Psycho Social/Smoking Cessation Hx Smoking History: Never smoked Have you smoked in the past 12 months: No Information on smoking cessation initiated: No Hx Alcohol Use: No Drug/Substance Use Hx: No Substance Use Type: Alcohol Hx Substance Use Treatment: No Review of Systems - Review of Systems Able to Perform ROS?: Yes Comments:: 12 point review of systems is negative except for what is noted in the history of present illness *Physical Exam - Vital Signs Last Vital Signs Temp Pulse Resp BP Pulse Ox 98 F 102 H 20 142/76 99 01/18/19 06:35 01/18/19 06:35 01/18/19 06:35 01/18/19 06:35 01/18/19 06:35 - Physical Exam Comments: GENERAL: Adult male, alert and oriented x3, in no acute distress HEAD: Normal with no signs of trauma. EYES: PERRLA, EOMI, sclera anicteric, conjunctiva clear. ENT: Ears normal, nares patent, oropharynx clear without exudates. Dry mucous membranes. NECK: Normal range of motion, supple without lymphadenopathy, JVD, or masses. LUNGS: Breath sounds equal, clear to auscultation bilaterally. No wheezes, and no crackles. HEART:Regular rate and rhythm, normal S1 and S2 without murmur, rub or gallop. ABDOMEN:.normal bowel sounds; midline longitudinal incision healing well without edema/tenderness/discharge; colostomy closure healing well; no guarding ,tenderness or rebound.No masses No distention. EXTREMITIES: Normal range of motion, no edema. No clubbing or cyanosis. No erythema, or tenderness. NEUROLOGICAL: Cranial nerves II through XII grossly intact. Normal speech. No focal neurological deficits. SKIN: Warm, Dry, normal turgor, no rashes or lesions noted. ED Treatment Course - LABORATORY CBC & Chemistry Diagram: 01/18/19 08:00 01/18/19 08:51 ED Progress Note - Progress Note Progress Note: This 78-year-old man, 1 week status post reversal of colostomy presents with few day history of epigastric discomfort and decreased appetite. He had sensation of chills briefly overnight but no measured fever. Urinary catheter is in place and functioning well. Exam as noted with normal oral temperature,normal bowel sounds , no significant tenderness/distention/masses and well-healing surgical incision. Patient refused rectal temp. Patient describes epigastric discomfort during the time since his discharge. Since he had been taking ibuprofen for pain relief, symptoms may be related to gastritis related to NSAID use. Patient given Pepcid 20 mg by mouth. Urinalysis and urine culture and sensitivity sent. If evidence of UTI present, he will be started on antibiotic. Patient's urologist is Dr. Ha ( [facility]) with whom he should follow-up in the near future for plan regarding urinary catheter removal. PMD is Dr Etienne with whom he should followup within the next week 01/18/19 07:29 Case signed out to Dr. Martin at end of shift Discharge - Discharge Information Problems reviewed: Yes Clinical Impression/Diagnosis: Dyspepsia Condition: Improved Disposition: HOME - Additional Discharge Information Prescriptions: Pantoprazole Sodium [Protonix] 40 mg PO ACBK #10 tablet.dr - Follow up/Referral Referrals: Sabino Etienne MD [Primary Care Provider] - 3 days - Patient Discharge Instructions Patient Printed Discharge Instructions: DI for Dyspepsia Additional Instructions: Symptoms may be a result of therapy with ibuprofen or gabapentin. If your pain is not an issue, consider discontinuing these medications. Take prescribed medicine for the stomach, which should relieve your symptoms, and try to drink fluids and get good nutrition, with nutritional supplements. Follow-up with primary physician. Return to ER if symptoms worsen. - Post Discharge Activity
--- NOTE | 2019-01-18 07:57 | PDOC ---
*Physical Exam - Vital Signs Last Vital Signs Temp Pulse Resp BP Pulse Ox 98 F 102 H 20 142/76 99 01/18/19 06:35 01/18/19 06:35 01/18/19 06:35 01/18/19 06:35 01/18/19 06:35 - Physical Exam Comments: 01/18/19 11:15 Urinalysis showed large ketones, but no sign of infection. Labs including CBC and chemistries without significant abnormalities Patient's symptoms dramatically improved with the administration of Pepcid, Protonix, Zofran and intravenous fluids. The patient was taking p.o. fluids well and starting to get an appetite back Abdominal exam remained benign, nondistended, soft, and nontender. There was no vomiting during ER stay. Most likely etiology of his dyspepsia and anorexia is ibuprofen and gabapentin therapy, which he had discontinued yesterday, suspecting this was the cause of his symptoms. We will continue Protonix, and follow-up primary physician, return to ER if symptoms worsen or additional symptoms develop. Fully ambulatory and in no pain or other distress upon discharge with his son to follow-up as directed ED Treatment Course - LABORATORY CBC & Chemistry Diagram: 01/18/19 08:00 01/18/19 08:51 - ADDITIONAL ORDERS Additional order review: Laboratory Results 01/18/19 07:00 Urine Color Yellow Urine Appearance Clear Urine pH 6.0 D Urine Protein 2+ H Urine Glucose (UA) Negative Urine Ketones 4+ H Urine Blood 3+ H Urine Nitrite Negative Urine Bilirubin 1+ H Urine Urobilinogen 0.2 Ur Leukocyte Esterase Negative - Medications Given in the ED: ED Medications Discontinued Medications Generic Name Dose Route Start Last Admin Trade Name José Miguel PRN Reason Stop Dose Admin Famotidine 40 mg 01/18/19 07:04 01/18/19 07:13 Pepcid - PO 01/18/19 07:05 Not Given ONCE ONE Famotidine 20 mg 01/18/19 07:10 01/18/19 07:13 Pepcid - PO 01/18/19 07:11 20 mg ONCE ONE Administration Discharge - Discharge Information Problems reviewed: Yes Clinical Impression/Diagnosis: Dyspepsia Condition: Improved Disposition: HOME - Admission No - Additional Discharge Information Prescriptions: Pantoprazole Sodium [Protonix] 40 mg PO ACJluisK #10 tablet. - Follow up/Referral Referrals: Sabino Etienne MD [Primary Care Provider] - 3 days - Patient Discharge Instructions Patient Printed Discharge Instructions: DI for Dyspepsia Additional Instructions: Symptoms may be a result of therapy with ibuprofen or gabapentin. If your pain is not an issue, consider discontinuing these medications. Take prescribed medicine for the stomach, which should relieve your symptoms, and try to drink fluids and get good nutrition, with nutritional supplements. Follow-up with primary physician. Return to ER if symptoms worsen. - Post Discharge Activity
[2019-01-18] MEDS ORDERED: SODIUM CHLORIDE 1,000 ML IV STA (08:00)
[2019-01-18 08:04] LABS: EPITHELIAL CELLS RARE /hpf
[2019-01-18 08:14] VITALS: BP 139/79; PULSE 80; TEMP 99.3
[2019-01-18 08:32] LABS: BASO % 1.9 % (0-2.0); EOS % 0.3 % (0-4.5); HEMATOCRIT 39.7 % (35.4-49); HEMOGLOBIN 13.5 GM/dl (11.7-16.9); MCH 31.9 pg (25.7-33.7); MCHC 34.1 g/dl (32.0-35.9); MEAN CELL VOLUME 93.6 fl (80-96); MEAN PLT VOLUME 7.9 fl (7.5-11.1); MONO % 7.1 % (3.8-10.2); NEUT % 79.7 % (42.8-82.8); PLATELET COUNT 438 K/MM3 (134-434); RBC 4.24 M/mm3 (4.00-5.60); RDW 12.5 % (11.9-15.9); WHITE BLOOD COUNT 10.9 K/mm3 (4.0-10.8)
[2019-01-18 09:37] LABS: ALBUMIN 2.7 g/dl (3.4-5.0); BILIRUBIN,TOTAL 0.9 mg/dl (0.2-1); CALCIUM 8.3 mg/dl (8.5-10); POTASSIUM 4.1 mmol/L (3.5-5.1); TOT PROT 5.6 g/dl (6.4-8.2)
[2019-01-18] MEDS ORDERED: ONDANSETRON 4 MG/2 ML VIAL IVPB ONE (09:56)
[2019-01-18] MEDS ORDERED: PANTOPRAZOLE SODIUM 40 MG VIAL ONE (09:57)
[2019-01-18] MEDS ORDERED: ONDANSETRON 4 MG/2 ML VIAL ONE (09:57)
[2019-01-18] MEDS ORDERED: PANTOPRAZOLE SODIUM 40 MG in SODIUM CHLORIDE 100 ML IVPB ONE (09:58)
== END 2019-01-18 10:32 | disposition home or self-care (01) ==
LOC: FER 06:28
PROC: 3E033GC Introduction of Other Therapeutic Substance into Peripheral Vein, Percutaneous Approach (ICD-10-PCS; principal; 2019-01-18)
PROC: 3E0337Z Introduction of Electrolytic and Water Balance Substance into Peripheral Vein, Percutaneous Approach (ICD-10-PCS; 2019-01-18)
DX: R10.13 Epigastric pain (principal); E78.5 Hyperlipidemia, unspecified; N40.0 Benign prostatic hyperplasia without lower urinary tract symptoms
CPT/HCPCS: 36415; 80053; 81003; 81015; 82550; 84484; 85025; 87086; 99282-25; J7030

== ENCOUNTER 2019-01-26 11:23 | Inpatient (IN) | payer OTHER ==
[2019-01-26] MEDS ORDERED: SODIUM CHLORIDE 0.9% 500 ML INFUS.BAG IV ONE (11:41)
--- NOTE | 2019-01-26 11:41 | PDOC ---
History of Present Illness - General Chief Complaint: Urinary Problem Stated Complaint: CHILLS, LOW BP Time Seen by Provider: 01/26/19 11:34 - History of Present Illness Initial Comments: 01/26/19 11:35 78 yo M PMH perforated bowel (06/14/2018) during routine colonscopy c/b hernias , s/p hernia repairs, ostomy and ostomy closure (01/10/2019), urinary retention with removal of Zambrano yesterday by his urologist, RAFAEL, presenting with fever. Patient endorses chills this morning, with home nurse telling him that his temperature was 101F at that time. Complains of ongoing chills and subjective fevers, denies abdominal pain, constipation/diarrhea, N/V, LUCIO. Reports that he has been urinating since the catheter was removed yesterday, but it has been very small amounts. Also complains of having tarry black stools X1 day. Past History - Past Medical History Allergies/Adverse Reactions: Allergies Allergy/AdvReac Type Severity Reaction Status Date / Time No Known Allergies Allergy Verified 01/18/19 06:33 Home Medications: Ambulatory Orders Tamsulosin HCl [Flomax -] 0.4 mg PO HS 01/14/19 Magnesium Hydrox 2400MG/30Ml [Milk of Magnesia -] 30 ml PO HS 01/26/19 Anemia: No Asthma: No Cancer: No Cardiac Disorders: No CVA: No COPD: No CHF: No Dementia: No Diabetes: No GI Disorders: Yes (perforated bowel 06/14/2018) Disorders: No HTN: No Hypercholesterolemia: Yes (WAS ON STATINS "ON AND OFF"-PRESENTLY OFF) Liver Disease: No Seizures: No Thyroid Disease: No - Surgical History Abdominal Surgery: Yes (Colonoscopy) Appendectomy: No Cardiac Surgery: No Cholecystectomy: No GI Surgery: Yes (OSTOMY CLOSURE 01/10/19) Lung Surgery: No Neurologic Surgery: No Orthopedic Surgery: No - Psycho Social/Smoking Cessation Hx Smoking History: Never smoked Have you smoked in the past 12 months: No Hx Alcohol Use: No Drug/Substance Use Hx: No Substance Use Type: Alcohol Hx Substance Use Treatment: No Review of Systems - Review of Systems Constitutional: Yes: Chills, Fever HEENTM: Yes: Hearing Loss (chronic). No: Recent change in vision, Throat Pain, Throat Swelling Respiratory: No: Cough, Shortness of Breath *Physical Exam - Physical Exam Comments: 01/26/19 11:45 Gen: well-developed, well-nourished, NAD Neuro: AAOX4, CN II-XII intact, FTN intact, EOMI, PERRLA, 5/5 strength, SILT HEENT: atraumatic, normocephalic, dry mucous membranes Neck: trachea midline, supple CV: regular rate, regular rhythm, no murmurs, rubs, or gallops Pulm: CTA b/l, no wheezing Abd: soft, suprapubic distension, non-tender, large well-healed midline scar without erythema, tenderness, or edema MSK: full ROM, intact pulses Extr: no edema, no deformities Skin: hot, dry ED Treatment Course - LABORATORY CBC & Chemistry Diagram: 01/27/19 17:35 01/27/19 17:35 Medical Decision Making - Medical Decision Making 01/26/19 11:46 Concern for urosepsis. - CBC, CMP, CXR port - EKG, trop - coags - blood cultures - catheter insertion with UA/UC - lactic acid - likely admit 01/26/19 12:34 EKG sinus tachycardia at 106 bpm, no ST segment elevations or T wave inversions. 01/26/19 12:35 WBC 26.4 with left shift 01/26/19 12:58 Guaiac positive but Hgb 13.2, low Na and Cl. 01/26/19 12:59 CXR without acute pathology. 01/26/19 15:[address] Bajwa, ICU resident, will get patient admitted to ICU 01/26/19 16:44 Patient MAPs dropped to 50s, starting Levophed drop. Called ICU again, spoke with Dr. Mills. Will get patient moved to ICU. Discharge - Discharge Information Problems reviewed: Yes Clinical Impression/Diagnosis: Sepsis Condition: Fair - Follow up/Referral - Patient Discharge Instructions - Post Discharge Activity
--- NOTE | 2019-01-26 11:47 | PDOC ---
Attending Attestation - Resident Resident Name: ParhamCorazon - ED Attending Attestation I have performed the following: I have examined & evaluated the patient, The case was reviewed & discussed with the resident, I agree w/resident's findings & plan, Exceptions are as noted - HPI HPI: 01/26/19 12:14 Patient complains of fever and chills today. Zambrano catheter was removed yesterday by urologist after indwelling for a long period of time following colon reenastomosis surgery. Was treated here on January 18 for epigastric pain that was thought to be due to pain medication administered postoperatively. He had been on ibuprofen and gabapentin. He was having no urinary symptoms at that time, but because of the length of time of catheter utilization, urinalysis and urine culture were obtained. The UA did not suggest infection, urine culture subsequently showed no growth. Patient has been urinating since removal of the catheter yesterday, but denies dysuria, frequency, urgency, or hematuria. No abdominal or flank pain, body aches, or other sign of systemic infection. There has been a small amount of serosanguineous drainage from a small incision left of his main abdominal incision. He has had what he describes as "tarry stools" for several days. 01/26/19 12:24 - Physicial Exam PE: 01/26/19 12:23 Febrile to 102 degrees. Blood pressure 88/60. Pale, but not diaphoretic. Alert and oriented. He is able to urinate after catheter removal. ENT clear Neck supple without bruit mass or nodes Lungs clear CV regular without murmur rub or gallop. Mild regular tachycardia.. Abdomen nondistended. Bowel sounds normal. Soft without mass tenderness organomegaly Extremities no CCE Skin clear, no rash, adequate turgor and wet mucous membranes Neuro: Mild generalized weakness but no focal deficits. Cranial nerves intact. 01/26/19 12:26 01/26/19 12:28 - Critical Care Time Total Critical Care Time: 30 Critical Care Statement: The care of this patient involved high complexity decision making to prevent further life threatening deterioration of the patient 's condition and/or to evaluate & treat vital organ system(s) failure or risk of failure. - Medical Decision Making 01/26/19 12:28 Assessment: Urosepsis. Rule out GI bleed. Plan: Blood cultures, urine culture, lactic acid, stool guaiac. Fluids and empiric antibiotics. Further evaluation and treatment based on results. Hospital admission. 01/26/19 13:27 White blood count is 26,000 with a left shift. H&H 13 and 38, stable. Urinalysis with 20-40 white cells per high-power field, 1+ leukocyte esterase, but nitrites are negative. Stool guaiac is positive. Chest x-ray is clear. EKG no acute ST-T wave changes. Labs suggest urosepsis. Also GI bleed, but not active enough to cause a drop in H&H. Most likely from the use of ibuprofen and gabapentin postoperatively. Empiric antibiotics begun. Fluids being administered. Admit for further monitoring and therapy. 01/26/19 15:27 01/26/19 15:38 Patient remains clinically and hemodynamically stable with blood pressure maintained at 90-95 systolic and pulse in the 95-100 range. He has received 2 L of intravenous fluid, and has been accepted for admission to the ICU, Dr. Bajwa for . Dr. Etienne was contacted by phone, he is aware and agrees with the disposition. He recommended consult by Dr. Vega, infectious disease.
[2019-01-26 12:28] LABS: HEMATOCRIT 38.5 % (35.4-49); HEMOGLOBIN 13.2 GM/dl (11.7-16.9); MCH 31.7 pg (25.7-33.7); MCHC 34.3 g/dl (32.0-35.9); MEAN CELL VOLUME 92.6 fl (80-96); PLATELET COUNT 587 K/MM3 (134-434); RBC 4.16 M/mm3 (4.00-5.60); RDW 12.6 % (11.9-15.9); WHITE BLOOD COUNT 26.4 K/mm3 (4.0-10.8)
[2019-01-26] MEDS ORDERED: VANCOMYCIN 1 GM in D5W (PRE-DOCKED) 1,000 MG/250 ML IVPB ONE (12:30)
[2019-01-26] MEDS ORDERED: PIPERACILLIN/TAZOB 3.375 GM 3.375 GM in DEXTROSE 5%-WATER - 50 ML IVPB ONE (12:31)
[2019-01-26] MEDS ORDERED: VANCOMYCIN 1,000 MG VIAL (RESTRICTED TO ID ONLY) ONE (12:34)
[2019-01-26] MEDS ORDERED: PIPERACILLIN/TAZOBACTAM 3.375 GM VIAL IVPB ONE (12:35)
[2019-01-26 12:38] LABS: INR 1.3 (0.82-1.09); PROTHROMBIN TIME (PATIENT) 14.5 SEC (10.2-13.0)
[2019-01-26 12:39] LABS: ALBUMIN 3.4 g/dl (3.4-5.0); BILIRUBIN,TOTAL 1.3 mg/dl (0.2-1); CALCIUM 8.9 mg/dl (8.5-10); CREATININE 1.2 mg/dl (0.55-1.3); MAGNESIUM 1.8 mg/dL (1.8-2.4); PHOSPHOROUS 1.3 mg/dl (2.5-4.9); POTASSIUM 3.7 mmol/L (3.5-5.1); TOT PROT 6.5 g/dl (6.4-8.2)
[2019-01-26 13:12] LABS: PLATELET ESTIMATE SLT INCREASE
--- NOTE | 2019-01-26 14:41 | HP ---
CHIEF COMPLAINT: Fever PCP: Dr. Elbert Etienne HISTORY OF PRESENT ILLNESS: 78 year-old male with a PMH significant for iatrogenic perforated sigmoid colon s/p Robb's procedure on 06/14/18. Post-operative course was complicated by urinary retention and the placement of 6 or 7 bedolla catheters over a period of months. On 01/10/19, patient underwent ostomy closure with Dr. Larios at [facility]. Decision was made to maintain the bedolla in the post-op phase. The intra-op bedolla was removed yesterday, 01/25, by Dr. Peña. Patient voided freely overnight, no hematuria, no dysuria. This morning, patient had chills for about three hours. A visiting nurse took his temp and it was 101. Patient came to the ED. Patient states he has had black tarry/pasty stools x 3- 4 days. He has been taking milk of magnesia at the direction of Dr. Larios. He has not taken Pepto Bismol. At the time of this admission patient denies aspirin or NSAID use. He denies epigastric or abdominal pain. He has had periods of nausea since his 01/10 surgery, occasional vomiting/dry heaving. He has had decreased appetite. 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 Smoking: no Alcohol: no Drugs: no Family history: father of [place], mother of senile dementia Allergies No Known Allergies Allergy (Verified 01/18/19 06:33) HOME MEDICATIONS: Home Medications Medication Instructions Recorded Tamsulosin HCl [Flomax -] 0.4 mg PO HS 01/14/19 Magnesium Hydrox 2400MG/30Ml [Milk 30 ml PO HS 01/26/19 of Magnesia -] REVIEW OF SYSTEMS CONSTITUTIONAL: +fever Absent: chills, diaphoresis, generalized weakness, malaise, loss of appetite, weight change HEENT: Absent: rhinorrhea, nasal congestion, throat pain, throat swelling, difficulty swallowing, mouth swelling, ear pain, eye pain, visual changes CARDIOVASCULAR: Absent: chest pain, syncope, palpitations, irregular heart rate, lightheadedness , peripheral edema RESPIRATORY: Absent: cough, shortness of breath, dyspnea with exertion, orthopnea, wheezing, stridor, hemoptysis GASTROINTESTINAL: +nausea, dry heaving earlier today, melena Absent: abdominal pain, abdominal distension, diarrhea, constipation, hematochezia GENITOURINARY: Absent: dysuria, frequency, urgency, hesitancy, hematuria, flank pain, genital pain MUSCULOSKELETAL: Absent: myalgia, arthralgia, joint swelling, back pain, neck pain SKIN: Absent: rash, itching, pallor HEMATOLOGIC/IMMUNOLOGIC: Absent: easy bleeding, easy bruising, lymphadenopathy, frequent infections ENDOCRINE: Absent: unexplained weight gain, unexplained weight loss, heat intolerance, cold intolerance NEUROLOGIC: Absent: headache, focal weakness or paresthesias, dizziness, unsteady gait, seizure, mental status changes, bladder or bowel incontinence PSYCHIATRIC: Absent: anxiety, depression, suicidal or homicidal ideation, hallucinations. PHYSICAL EXAMINATION Vital Signs - 24 hr 01/26/19 01/26/19 01/26/19 11:25 12:15 13:00 Temperature 102.1 F H Pulse Rate 140 H Pulse Rate [ 106 H 103 H Apical] Respiratory 16 21 H 21 H Rate Blood Pressure 88/50 L Blood Pressure 87/55 L 90/51 L [Right Arm] O2 Sat by Pulse 96 95 95 Oximetry (%) 01/26/19 14:00 Temperature Pulse Rate Pulse Rate [ 104 H Apical] Respiratory 15 Rate Blood Pressure Blood Pressure 96/53 L [Right Arm] O2 Sat by Pulse 94 L Oximetry (%) GENERAL: Awake, alert, and fully oriented, in no acute distress. Pale, weak- appearing. HEAD: Normal with no signs of trauma. EYES: Pupils equal, round and reactive to light, extraocular movements intact, sclera anicteric, pale conjunctiva EARS, NOSE, THROAT: Ears normal, nares patent, oropharynx clear without exudates. Dry, pale mucous membranes. LUNGS: Breath sounds equal, clear to auscultation bilaterally. No wheezes, and no crackles. No accessory muscle use. HEART: Regular rate and rhythm, normal S1 and S2 ABDOMEN: Healing vertical surgical incision from sternum to suprapubic area; edges well-approximated, no drainage, no fluctuance, not tender; ostomy wound LMQ with granulating tissue, no exudate, no erythema; hypoactive bowel sounds UPPER EXTREMITIES: 2+ pulses, warm, well-perfused. No cyanosis. No clubbing. No peripheral edema. LOWER EXTREMITIES: 2+ pulses, warm, well-perfused. No calf tenderness. No peripheral edema. NEUROLOGICAL: Cranial nerves II-XII intact. Normal speech. Laboratory Results - last 24 hr 01/26/19 01/26/19 01/26/19 11:50 12:10 12:10 WBC 26.4 H RBC 4.16 Hgb 13.2 Hct 38.5 MCV 92.6 MCH 31.7 MCHC 34.3 RDW 12.6 Plt Count 587 H D MPV 8.0 Absolute Neuts (auto) 25.2 Neutrophils % No Result Required. Neutrophils % (Manual) 91.0 H* Band Neutrophils % 6.0 Lymphocytes % No Result Required. Lymphocytes % (Manual) 2.0 L Monocytes % (Manual) 1 L Platelet Estimate Slt increase PT with INR INR PTT (Actin FS) Sodium 132 L Potassium 3.7 Chloride 95 L Carbon Dioxide 23 Anion Gap 14 BUN 12.0 Creatinine 1.2 Est GFR (CKD-EPI)AfAm 67.67 Est GFR (CKD-EPI)NonAf 58.39 Random Glucose 117 H Calcium 8.9 Phosphorus 1.3 L Magnesium 1.8 Total Bilirubin 1.3 H AST 32 ALT 27 Alkaline Phosphatase 127 H D Troponin I Total Protein 6.5 Albumin 3.4 Urine Color Yellow Urine Appearance Clear Urine pH 5.0 Urine Protein 1+ H Urine Glucose (UA) Negative Urine Ketones 4+ H Urine Blood 2+ H Urine Nitrite Negative Urine Bilirubin 3+ H Urine Urobilinogen 0.2 Ur Leukocyte Esterase 1+ Urine RBC 10-20 Urine WBC 20-40 Urine Bacteria Few Stool Occult Blood 01/26/19 01/26/19 01/26/19 12:10 12:10 12:10 WBC RBC Hgb Hct MCV MCH MCHC RDW Plt Count MPV Absolute Neuts (auto) Neutrophils % Neutrophils % (Manual) Band Neutrophils % Lymphocytes % Lymphocytes % (Manual) Monocytes % (Manual) Platelet Estimate PT with INR 14.5 H INR 1.30 H PTT (Actin FS) 23.7 L Sodium Potassium Chloride Carbon Dioxide Anion Gap BUN Creatinine Est GFR (CKD-EPI)AfAm Est GFR (CKD-EPI)NonAf Random Glucose Calcium Phosphorus Magnesium Total Bilirubin AST ALT Alkaline Phosphatase Troponin I 0.03 Total Protein Albumin Urine Color Urine Appearance Urine pH Urine Protein Urine Glucose (UA) Urine Ketones Urine Blood Urine Nitrite Urine Bilirubin Urine Urobilinogen Ur Leukocyte Esterase Urine RBC Urine WBC Urine Bacteria Stool Occult Blood 01/26/19 12:30 WBC RBC Hgb Hct MCV MCH MCHC RDW Plt Count MPV Absolute Neuts (auto) Neutrophils % Neutrophils % (Manual) Band Neutrophils % Lymphocytes % Lymphocytes % (Manual) Monocytes % (Manual) Platelet Estimate PT with INR INR PTT (Actin FS) Sodium Potassium Chloride Carbon Dioxide Anion Gap BUN Creatinine Est GFR (CKD-EPI)AfAm Est GFR (CKD-EPI)NonAf Random Glucose Calcium Phosphorus Magnesium Total Bilirubin AST ALT Alkaline Phosphatase Troponin I Total Protein Albumin Urine Color Urine Appearance Urine pH Urine Protein Urine Glucose (UA) Urine Ketones Urine Blood Urine Nitrite Urine Bilirubin Urine Urobilinogen Ur Leukocyte Esterase Urine RBC Urine WBC Urine Bacteria Stool Occult Blood Positive ASSESSMENT/PLAN 78 year-old male with a PMH significant for iatrogenic perforated sigmoid colon s/p Robb's procedure on 06/14/18, s/p ostomy closure on 01/10/10, s/p bedolla catheter removal on 01/25. Admitted for severe sepsis likely secondary to UTI. Severe sepsis UTI --T102.1, p 140, BP 87/55, WBC 26.4, lactic acid 1.5 on admission; +pyuria --fluid resuscitated 1800ccs NS with persistent hypotension; levophed started peripherally, BP improved to 96/60 (MAP 72) --Vanc x 1, Zosyn x 1 in ED --repeat lactic acid now --NS @ 125mL/hr running --transfer to ICU Melena Occult stool positive --h/h stable; repeat cbc now --IV fluids Visit type - Emergency Visit Emergency Visit: Yes ED Registration Date: 01/26/19 Care time: The patient presented to the Emergency Department on the above date and was hospitalized for further evaluation of their emergent condition. - New Patient This patient is new to me today: Yes Date on this admission: 01/26/19 - Critical Care Critical Care patient: Yes Total Critical Care Time (in minutes): 45 Critical Care Statement: The care of this patient involved high complexity decision making to prevent further life threatening deterioration of the patient 's condition and/or to evaluate & treat vital organ system(s) failure or risk of failure.
[2019-01-26] MEDS ORDERED: SODIUM CHLORIDE 1,000 ML IV SCH (15:15)
[2019-01-26] MEDS ORDERED: ACETAMINOPHEN 325 MG TABLET (FP) PO SCH (15:15)
[2019-01-26] MEDS ORDERED: ACETAMINOPHEN 325 MG TABLET (FP) ONE (15:35)
[2019-01-26] MEDS ORDERED: PANTOPRAZOLE SODIUM 40 MG VIAL IVPUSH ONE (15:52)
[2019-01-26] MEDS ORDERED: PANTOPRAZOLE SODIUM 40 MG VIAL ONE (16:06)
[2019-01-26] MEDS ORDERED: NOREPINEPHRINE BITARTRATE 4 MG/4 ML ML IV ONE ×2 (16:22→17:20)
[2019-01-26] MEDS ORDERED: NOREPINEPHRINE BITARTRATE 4,000 MCG in DEXTROSE 5%-WATER - 496 ML IV SCH (16:30)
[2019-01-26] MEDS ORDERED: ACETAMINOPHEN 1000 MG/100 ML VIAL (NON FORMULARY) IVPB SCH (17:45)
--- NOTE | 2019-01-26 18:46 | CONSULT ---
Consultation: REQUESTING PROVIDER: CONSULT REQUEST: We have been asked to medically evaluate this patient for ( specify). HISTORY OF PRESENT ILLNESS: REVIEW OF SYSTEMS: CONSTITUTIONAL: Absent: fever, chills, diaphoresis, generalized weakness, malaise, loss of appetite, weight change HEENT: Absent: rhinorrhea, nasal congestion, throat pain, throat swelling, difficulty swallowing, mouth swelling, ear pain, eye pain, visual changes CARDIOVASCULAR: Absent: chest pain, syncope, palpitations, irregular heart rate, lightheadedness , peripheral edema RESPIRATORY: Absent: cough, shortness of breath, dyspnea with exertion, orthopnea, wheezing, stridor, hemoptysis GASTROINTESTINAL: Absent: abdominal pain, abdominal distension, nausea, vomiting, diarrhea, constipation, melena, hematochezia GENITOURINARY: Absent: dysuria, frequency, urgency, hesitancy, hematuria, flank pain, genital pain MUSCULOSKELETAL: Absent: myalgia, arthralgia, joint swelling, back pain, neck pain SKIN: Absent: rash, itching, pallor HEMATOLOGIC/IMMUNOLOGIC: Absent: easy bleeding, easy bruising, lymphadenopathy, frequent infections ENDOCRINE: Absent: unexplained weight gain, unexplained weight loss, heat intolerance, cold intolerance NEUROLOGIC: Absent: headache, focal weakness or paresthesias, dizziness, unsteady gait, seizure, mental status changes, bladder or bowel incontinence PSYCHIATRIC: Absent: anxiety, depression, suicidal or homicidal ideation, hallucinations. PHYSICAL EXAMINATION Vital Signs - 24 hr 01/26/19 01/26/19 01/26/19 11:25 12:15 13:00 Temperature 102.1 F H Pulse Rate 140 H Pulse Rate [ 106 H 103 H Apical] Respiratory 16 21 H 21 H Rate Blood Pressure 88/50 L Blood Pressure 87/55 L 90/51 L [Right Arm] O2 Sat by Pulse 96 95 95 Oximetry (%) 01/26/19 01/26/19 01/26/19 14:00 15:00 15:30 Temperature 100.2 F H Pulse Rate Pulse Rate [ 104 H 106 H 108 H Apical] Respiratory 15 22 H 24 H Rate Blood Pressure Blood Pressure 96/53 L 90/53 L 94/53 L [Right Arm] O2 Sat by Pulse 94 L 97 94 L Oximetry (%) 01/26/19 01/26/19 01/26/19 16:00 16:30 17:00 Temperature Pulse Rate 92 H Pulse Rate [ 94 H 100 H Apical] Respiratory 20 21 H Rate Blood Pressure 83/51 L Blood Pressure 73/45 L 83/44 L [Right Arm] O2 Sat by Pulse 95 98 Oximetry (%) 01/26/19 01/26/19 01/26/19 17:30 17:45 18:00 Temperature Pulse Rate Pulse Rate [ 88 91 H 89 Apical] Respiratory 19 23 H 22 H Rate Blood Pressure Blood Pressure 99/54 L 92/50 L 96/60 [Right Arm] O2 Sat by Pulse 98 98 97 Oximetry (%) 01/26/19 01/26/19 01/26/19 18:10 18:50 19:05 Temperature 100.2 F H 98.9 F Pulse Rate 89 99 H Pulse Rate [ Apical] Respiratory 22 H 18 Rate Blood Pressure 96/60 93/57 L Blood Pressure [Right Arm] O2 Sat by Pulse 99 Oximetry (%) 01/26/19 01/26/19 19:14 19:21 Temperature Pulse Rate 94 H 95 H Pulse Rate [ Apical] Respiratory 19 Rate Blood Pressure 94/58 L 94/58 L Blood Pressure [Right Arm] O2 Sat by Pulse Oximetry (%) GENERAL: Awake, alert, and fully oriented, in no acute distress. HEAD: Normal with no signs of trauma. EYES: Pupils equal, round and reactive to light, extraocular movements intact, sclera anicteric, conjunctiva clear. No lid lag. EARS, NOSE, THROAT: Ears normal, nares patent, oropharynx clear without exudates. Moist mucous membranes. NECK: Normal range of motion, supple without lymphadenopathy, JVD, or masses. LUNGS: Breath sounds equal, clear to auscultation bilaterally. No wheezes, and no crackles. No accessory muscle use. HEART: Regular rate and rhythm, normal S1 and S2 without murmur, rub or gallop. ABDOMEN: Soft, nontender, not distended, normoactive bowel sounds, no guarding, no rebound, no masses. No hepatomegaly or splenomegaly. MUSCULOSKELETAL: Normal range of motion at all joints. No bony deformities or tenderness. No CVA tenderness. UPPER EXTREMITIES: 2+ pulses, warm, well-perfused. No cyanosis. No clubbing. Cap refill <2 seconds. No peripheral edema. LOWER EXTREMITIES: 2+ pulses, warm, well-perfused. No calf tenderness. No peripheral edema. NEUROLOGICAL: Cranial nerves II-XII intact. Normal speech. Normal gait. PSYCHIATRIC: Cooperative. Good eye contact. Appropriate mood and affect. SKIN: Warm, dry, normal turgor, no rashes or lesions noted. Laboratory Results - last 24 hr 01/26/19 01/26/19 01/26/19 11:50 12:10 12:10 WBC 26.4 H RBC 4.16 Hgb 13.2 Hct 38.5 MCV 92.6 MCH 31.7 MCHC 34.3 RDW 12.6 Plt Count 587 H D MPV 8.0 Absolute Neuts (auto) 25.2 Neutrophils % No Result Required. Neutrophils % (Manual) 91.0 H* Band Neutrophils % 6.0 Lymphocytes % No Result Required. Lymphocytes % (Manual) 2.0 L Monocytes % Monocytes % (Manual) 1 L Eosinophils % Eosinophils % (Manual) Basophils % Basophils % (Manual) Myelocytes % (Man) Promyelocytes % (Man) Blast Cells % (Manual) Nucleated RBC % Metamyelocytes Platelet Estimate Slt increase PT with INR INR PTT (Actin FS) Sodium 132 L Potassium 3.7 Chloride 95 L Carbon Dioxide 23 Anion Gap 14 BUN 12.0 Creatinine 1.2 Est GFR (CKD-EPI)AfAm 67.67 Est GFR (CKD-EPI)NonAf 58.39 Random Glucose 117 H Lactic Acid Calcium 8.9 Phosphorus 1.3 L Magnesium 1.8 Total Bilirubin 1.3 H AST 32 ALT 27 Alkaline Phosphatase 127 H D Troponin I Total Protein 6.5 Albumin 3.4 Urine Color Yellow Urine Appearance Clear Urine pH 5.0 Urine Protein 1+ H Urine Glucose (UA) Negative Urine Ketones 4+ H Urine Blood 2+ H Urine Nitrite Negative Urine Bilirubin 3+ H Urine Urobilinogen 0.2 Ur Leukocyte Esterase 1+ Urine RBC 10-20 Urine WBC 20-40 Urine Bacteria Few Stool Occult Blood Blood Type Antibody Screen 01/26/19 01/26/19 01/26/19 12:10 12:10 12:10 WBC RBC Hgb Hct MCV MCH MCHC RDW Plt Count MPV Absolute Neuts (auto) Neutrophils % Neutrophils % (Manual) Band Neutrophils % Lymphocytes % Lymphocytes % (Manual) Monocytes % Monocytes % (Manual) Eosinophils % Eosinophils % (Manual) Basophils % Basophils % (Manual) Myelocytes % (Man) Promyelocytes % (Man) Blast Cells % (Manual) Nucleated RBC % Metamyelocytes Platelet Estimate PT with INR INR PTT (Actin FS) 23.7 L Sodium Potassium Chloride Carbon Dioxide Anion Gap BUN Creatinine Est GFR (CKD-EPI)AfAm Est GFR (CKD-EPI)NonAf Random Glucose Lactic Acid 1.5 Calcium Phosphorus Magnesium Total Bilirubin AST ALT Alkaline Phosphatase Troponin I 0.03 Total Protein Albumin Urine Color Urine Appearance Urine pH Urine Protein Urine Glucose (UA) Urine Ketones Urine Blood Urine Nitrite Urine Bilirubin Urine Urobilinogen Ur Leukocyte Esterase Urine RBC Urine WBC Urine Bacteria Stool Occult Blood Blood Type Antibody Screen 01/26/19 01/26/19 01/26/19 12:10 12:30 16:20 WBC RBC Hgb Hct MCV MCH MCHC RDW Plt Count MPV Absolute Neuts (auto) Neutrophils % Neutrophils % (Manual) Band Neutrophils % Lymphocytes % Lymphocytes % (Manual) Monocytes % Monocytes % (Manual) Eosinophils % Eosinophils % (Manual) Basophils % Basophils % (Manual) Myelocytes % (Man) Promyelocytes % (Man) Blast Cells % (Manual) Nucleated RBC % Metamyelocytes Platelet Estimate PT with INR 14.5 H INR 1.30 H PTT (Actin FS) Sodium Potassium Chloride Carbon Dioxide Anion Gap BUN Creatinine Est GFR (CKD-EPI)AfAm Est GFR (CKD-EPI)NonAf Random Glucose Lactic Acid Calcium Phosphorus Magnesium Total Bilirubin AST ALT Alkaline Phosphatase Troponin I Total Protein Albumin Urine Color Urine Appearance Urine pH Urine Protein Urine Glucose (UA) Urine Ketones Urine Blood Urine Nitrite Urine Bilirubin Urine Urobilinogen Ur Leukocyte Esterase Urine RBC Urine WBC Urine Bacteria Stool Occult Blood Positive Blood Type O POSITIVE Antibody Screen Negative 01/26/19 19:35 WBC 38.0 H* RBC 3.35 L Hgb 10.4 L Hct 31.1 L D MCV 92.8 MCH 31.0 MCHC 33.4 RDW 13.9 Plt Count 492 H D MPV 7.9 Absolute Neuts (auto) 35.0 H Neutrophils % 92.0 H Neutrophils % (Manual) 90.0 H D Band Neutrophils % 4.0 Lymphocytes % 1.5 L D Lymphocytes % (Manual) 2.0 L Monocytes % 6.3 Monocytes % (Manual) 4 Eosinophils % 0.0 D Eosinophils % (Manual) 0.0 Basophils % 0.2 Basophils % (Manual) 0.0 Myelocytes % (Man) 0 Promyelocytes % (Man) 0 Blast Cells % (Manual) 0 Nucleated RBC % 0 Metamyelocytes 0 Platelet Estimate Increased PT with INR INR PTT (Actin FS) Sodium Potassium Chloride Carbon Dioxide Anion Gap BUN Creatinine Est GFR (CKD-EPI)AfAm Est GFR (CKD-EPI)NonAf Random Glucose Lactic Acid Calcium Phosphorus Magnesium Total Bilirubin AST ALT Alkaline Phosphatase Troponin I Total Protein Albumin Urine Color Urine Appearance Urine pH Urine Protein Urine Glucose (UA) Urine Ketones Urine Blood Urine Nitrite Urine Bilirubin Urine Urobilinogen Ur Leukocyte Esterase Urine RBC Urine WBC Urine Bacteria Stool Occult Blood Blood Type Antibody Screen Active Medications Generic Name Dose Route Start Last Admin Trade Name Freq PRN Reason Stop Dose Admin Acetaminophen 1,000 mg 01/26/19 17:45 Ofirmev Injection - IVPB 01/27/19 11:46 Q6H CASS Chlorhexidine Gluconate 1 applic 01/26/19 22:00 Hibiclens For Decolonization - TP HS CASS Norepinephrine Bitartrate 4, 500 mls @ 37.5 mls/hr 01/26/19 16:30 01/26/19 19 :14 000 mcg/ Dextrose IV 4 mcg/min TITR CASS 30 mls/hr Titration Protocol 5 MCG/MIN Sodium Chloride 1,000 mls @ 150 mls/hr 01/26/19 19:15 01/26/19 20:30 Normal Saline - IV 150 mls/hr ASDIR CASS Administration Lactated Ringer's 1,000 ml in 1,000 mls @ 1,000 mls/hr 01/26/19 19:15 19:30 Lactated Ringers Solution IV 01/27/19 20:14 1,000 mls/hr ASDIR CASS Administration Potassium Phosphate 15 mm/ 255 mls @ 63.75 mls/hr 01/26/19 19:23 01/26/19 20: 59 Dextrose IVPB 01/26/19 23:22 63.75 mls/hr ONCE ONE Administration 15 MM/4 HR Metronidazole 500 mg in 100 mls @ 100 mls/hr 01/26/19 21:30 Flagyl 500mg Premixed Ivpb - IVPB Q8H-IV CASS Meropenem 1 gm/ Dextrose 100 mls @ 200 mls/hr 01/26/19 21:30 IVPB Q12H CASS Meropenem 1 gm/ Dextrose 100 mls @ 200 mls/hr 01/26/19 21:45 IVPB 01/27/19 10:14 Q12H CASS Mupirocin 1 applic 01/26/19 22:00 Bactroban Ointment (For Decolonization) - NS 01/31/19 21:59 BID CASS Vancomycin HCl 1,000 mg 01/27/19 01:00 Vancomycin (Pre-Docked) IVPB 01/27/19 01:01 ONCE ONE Protocol ASSESSMENT/PLAN: Dispo: We will continue to follow the patient. Thank you for this consultative opportunity. <Kalani Dill - Last Filed: 01/26/19 21:35> Consultation: REQUESTING PROVIDER:ED team Johan meraz CONSULT REQUEST: We have been asked to medically evaluate this patient for ( sepsis 2/2 UTI ). PCP: Dr. Elbert Etienne HISTORY OF PRESENT ILLNESS: 78 year-old male with a PMH significant for iatrogenic perforated sigmoid colon s/p Robb's procedure on 06/14/18. Post-operative course was complicated by urinary retention and the placement of 6 or 7 bedolla catheters over a period of months. On 01/10/19, patient underwent ostomy closure with Dr. Larios at [facility]. Decision was made to maintain the bedolla in the post-op phase. The intra-op bedolla was removed yesterday, 01/25, by Dr. Peña. Patient voided freely overnight, no hematuria, no dysuria. This morning, patient had chills for about three hours. A visiting nurse took his temp and it was 101. Patient came to the ED. Patient states he has had black tarry/pasty stools x 3- 4 days. He has been taking milk of magnesia at the direction of Dr. Larios. He has not taken Pepto Bismol. At the time of this admission patient denies aspirin or NSAID use. He denies epigastric or abdominal pain. He has had periods of nausea since his 01/10 surgery, occasional vomiting/dry heaving. He has had decreased appetite. 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[employer] Smoking: no Alcohol: no Drugs: no Family history: father of [place], mother of senile dementia Allergies No Known Allergies Allergy (Verified 01/18/19 06:33) REVIEW OF SYSTEMS: CONSTITUTIONAL: Absent: fever, chills, diaphoresis, generalized weakness, malaise, loss of appetite, weight change HEENT: Absent: rhinorrhea, nasal congestion, throat pain, throat swelling, difficulty swallowing, mouth swelling, ear pain, eye pain, visual changes CARDIOVASCULAR: Absent: chest pain, syncope, palpitations, irregular heart rate, lightheadedness , peripheral edema RESPIRATORY: Absent: cough, shortness of breath, dyspnea with exertion, orthopnea, wheezing, stridor, hemoptysis GASTROINTESTINAL: Absent: abdominal pain, abdominal distension, nausea, vomiting, diarrhea, constipation, melena, hematochezia GENITOURINARY: Absent: dysuria, frequency, urgency, hesitancy, hematuria, flank pain, genital pain MUSCULOSKELETAL: Absent: myalgia, arthralgia, joint swelling, back pain, neck pain SKIN: Absent: rash, itching, pallor HEMATOLOGIC/IMMUNOLOGIC: Absent: easy bleeding, easy bruising, lymphadenopathy, frequent infections ENDOCRINE: Absent: unexplained weight gain, unexplained weight loss, heat intolerance, cold intolerance NEUROLOGIC: Absent: headache, focal weakness or paresthesias, dizziness, unsteady gait, seizure, mental status changes, bladder or bowel incontinence PSYCHIATRIC: Absent: anxiety, depression, suicidal or homicidal ideation, hallucinations. PHYSICAL EXAMINATION Vital Signs - 24 hr 01/26/19 01/26/19 01/26/19 11:25 12:15 13:00 Temperature 102.1 F H Pulse Rate 140 H Pulse Rate [ 106 H 103 H Apical] Respiratory 16 21 H 21 H Rate Blood Pressure 88/50 L Blood Pressure 87/55 L 90/51 L [Right Arm] O2 Sat by Pulse 96 95 95 Oximetry (%) 01/26/19 01/26/19 01/26/19 14:00 15:00 15:30 Temperature 100.2 F H Pulse Rate Pulse Rate [ 104 H 106 H 108 H Apical] Respiratory 15 22 H 24 H Rate Blood Pressure Blood Pressure 96/53 L 90/53 L 94/53 L [Right Arm] O2 Sat by Pulse 94 L 97 94 L Oximetry (%) 01/26/19 01/26/19 01/26/19 16:00 16:30 17:00 Temperature Pulse Rate 92 H Pulse Rate [ 94 H 100 H Apical] Respiratory 20 21 H Rate Blood Pressure 83/51 L Blood Pressure 73/45 L 83/44 L [Right Arm] O2 Sat by Pulse 95 98 Oximetry (%) 01/26/19 01/26/19 01/26/19 17:30 17:45 18:00 Temperature Pulse Rate Pulse Rate [ 88 91 H 89 Apical] Respiratory 19 23 H 22 H Rate Blood Pressure Blood Pressure 99/54 L 92/50 L 96/60 [Right Arm] O2 Sat by Pulse 98 98 97 Oximetry (%) 01/26/19 18:10 Temperature 100.2 F H Pulse Rate 89 Pulse Rate [ Apical] Respiratory 22 H Rate Blood Pressure 96/60 Blood Pressure [Right Arm] O2 Sat by Pulse Oximetry (%) GENERAL: Awake, alert, and fully oriented, in no acute distress. HEAD: Normal with no signs of trauma. EYES: Pupils equal, round and reactive to light, extraocular movements intact, sclera anicteric ENT: Ears normal, nares patent, oropharynx clear without exudates. Moist mucous membranes. NECK: , supple LUNGS: Breath sounds equal, clear to auscultation bilaterally. No wheezes, and no crackles. No accessory muscle use. HEART: Regular rate and rhythm, normal S1 and S2 without murmur, rub or gallop. ABDOMEN: Soft, nontender, not distended, normoactive bowel sounds, no guarding, med surgical scar , and colostomy scar on right side LOWER EXTREMITIES: 2+ pulses, warm, well-perfuse. No calf tenderness. No peripheral edema. NEUROLOGICAL: Cranial nerves II-XII intact. Normal speech PSYCHIATRIC: Cooperative. Good eye contact. Appropriate mood and affect. SKIN: Warm, dry, normal turgor, [place] with normal sphincter tone , no tags or hemorrhoids noticed , no stool was noted in the rectum did not notice any blood or black stool. Laboratory Results - last 24 hr 01/26/19 01/26/19 01/26/19 11:50 12:10 12:10 WBC 26.4 H RBC 4.16 Hgb 13.2 Hct 38.5 MCV 92.6 MCH 31.7 MCHC 34.3 RDW 12.6 Plt Count 587 H D MPV 8.0 Absolute Neuts (auto) 25.2 Neutrophils % No Result Required. Neutrophils % (Manual) 91.0 H* Band Neutrophils % 6.0 Lymphocytes % No Result Required. Lymphocytes % (Manual) 2.0 L Monocytes % (Manual) 1 L Platelet Estimate Slt increase PT with INR INR PTT (Actin FS) Sodium 132 L Potassium 3.7 Chloride 95 L Carbon Dioxide 23 Anion Gap 14 BUN 12.0 Creatinine 1.2 Est GFR (CKD-EPI)AfAm 67.67 Est GFR (CKD-EPI)NonAf 58.39 Random Glucose 117 H Lactic Acid Calcium 8.9 Phosphorus 1.3 L Magnesium 1.8 Total Bilirubin 1.3 H AST 32 ALT 27 Alkaline Phosphatase 127 H D Troponin I Total Protein 6.5 Albumin 3.4 Urine Color Yellow Urine Appearance Clear Urine pH 5.0 Urine Protein 1+ H Urine Glucose (UA) Negative Urine Ketones 4+ H Urine Blood 2+ H Urine Nitrite Negative Urine Bilirubin 3+ H Urine Urobilinogen 0.2 Ur Leukocyte Esterase 1+ Urine RBC 10-20 Urine WBC 20-40 Urine Bacteria Few Stool Occult Blood Blood Type Antibody Screen 01/26/19 01/26/19 01/26/19 12:10 12:10 12:10 WBC RBC Hgb Hct MCV MCH MCHC RDW Plt Count MPV Absolute Neuts (auto) Neutrophils % Neutrophils % (Manual) Band Neutrophils % Lymphocytes % Lymphocytes % (Manual) Monocytes % (Manual) Platelet Estimate PT with INR INR PTT (Actin FS) 23.7 L Sodium Potassium Chloride Carbon Dioxide Anion Gap BUN Creatinine Est GFR (CKD-EPI)AfAm Est GFR (CKD-EPI)NonAf Random Glucose Lactic Acid 1.5 Calcium Phosphorus Magnesium Total Bilirubin AST ALT Alkaline Phosphatase Troponin I 0.03 Total Protein Albumin Urine Color Urine Appearance Urine pH Urine Protein Urine Glucose (UA) Urine Ketones Urine Blood Urine Nitrite Urine Bilirubin Urine Urobilinogen Ur Leukocyte Esterase Urine RBC Urine WBC Urine Bacteria Stool Occult Blood Blood Type Antibody Screen 01/26/19 01/26/19 01/26/19 12:10 12:30 16:20 WBC RBC Hgb Hct MCV MCH MCHC RDW Plt Count MPV Absolute Neuts (auto) Neutrophils % Neutrophils % (Manual) Band Neutrophils % Lymphocytes % Lymphocytes % (Manual) Monocytes % (Manual) Platelet Estimate PT with INR 14.5 H INR 1.30 H PTT (Actin FS) Sodium Potassium Chloride Carbon Dioxide Anion Gap BUN Creatinine Est GFR (CKD-EPI)AfAm Est GFR (CKD-EPI)NonAf Random Glucose Lactic Acid Calcium Phosphorus Magnesium Total Bilirubin AST ALT Alkaline Phosphatase Troponin I Total Protein Albumin Urine Color Urine Appearance Urine pH Urine Protein Urine Glucose (UA) Urine Ketones Urine Blood Urine Nitrite Urine Bilirubin Urine Urobilinogen Ur Leukocyte Esterase Urine RBC Urine WBC Urine Bacteria Stool Occult Blood Positive Blood Type O POSITIVE Antibody Screen Negative Active Medications Generic Name Dose Route Start Last Admin Trade Name Freq PRN Reason Stop Dose Admin Acetaminophen 1,000 mg 01/26/19 17:45 Ofirmev Injection - IVPB 01/27/19 11:46 Q6H CASS Chlorhexidine Gluconate 1 applic 01/26/19 22:00 Hibiclens For Decolonization - TP HS CASS Sodium Chloride 1,000 mls @ 100 mls/hr 01/26/19 15:15 01/26/19 15:30 Normal Saline - IV 100 mls/hr ASDIR CASS Administration Norepinephrine Bitartrate 4, 500 mls @ 37.5 mls/hr 01/26/19 16:30 01/26/19 17 :00 000 mcg/ Dextrose IV 5 mcg/min TITR CASS 37.5 mls/hr Administration Protocol 5 MCG/MIN Piperacillin Sod/Tazobactam 50 mls @ 100 mls/hr 01/26/19 21:00 Sod 2.25 gm/ Dextrose IVPB Q6H-IV CASS Protocol Piperacillin Sod/Tazobactam 50 mls @ 100 mls/hr 01/26/19 21:00 Sod 2.25 gm/ Dextrose IVPB 01/27/19 15:29 Q6H-IV CASS Protocol Mupirocin 1 applic 01/26/19 22:00 Bactroban Ointment (For Decolonization) - NS 01/31/19 21:59 BID CASS Tamsulosin HCl 0.4 mg 01/26/19 22:00 Flomax - PO HS CASS CBC, BMP 01/26/19 12:10 01/26/19 12:10 ASSESSMENT/PLAN: 78 year-old male with a PMH significant for iatrogenic perforated sigmoid colon s/p Robb's procedure on 06/14/18. Post-operative course was complicated by urinary retention and the placement of 6 or 7 bedolla catheters over a period of months. presented to ICU for sepsis 2/2 UTI and black tarry stool. pt presented with levofed on peripheral line @ 4 # Sepsis 2/2 UTI * carter cx * IV fluids bolus and maintenance * maintain MAP> 65 * Abx per ID on Zosyn, receive one dose of vanco * cxr with elevated left side diaphragm * BP monitor , desk monitor * maintain o2 sat > 90 * CT A/P with iv contrast # Black tarry stool R.O GI bleed * NPO * 2 large IV bores * monitor H/h Q 8 hr * maintain Hgb> 8 * consult GI * PPI IV BID * PT, PTT, INR * stop any NSAIDs or AC * stool occult positive # FEN * NS @ 150 CC/hr , LR Bolus x2 * Monitor lytes * NPO for now except meds # Proph * DVTS SCDS , no chemical prophylaxis due to black stool R.O Gi bleed * GI proph PPI BID # dispo monitor in ICU # Full code Dispo: We will continue to follow the patient. Thank you for this consultative opportunity. <Jose Ramon Mills - Last Filed: 01/28/19 14:05> Visit type - Emergency Visit Emergency Visit: Yes ED Registration Date: 01/26/19 Care time: The patient presented to the Emergency Department on the above date and was hospitalized for further evaluation of their emergent condition. - New Patient This patient is new to me today: Yes Date on this admission: 01/26/19 - Critical Care Critical Care patient: Yes Total Critical Care Time (in minutes): 45 Critical Care Statement: The care of this patient involved high complexity decision making to prevent further life threatening deterioration of the patient 's condition and/or to evaluate & treat vital organ system(s) failure or risk of failure. <Jose Ramon Mills - Last Filed: 01/28/19 14:05> ATTENDING PHYSICIAN STATEMENT I saw and evaluated the patient. I reviewed the resident's note and discussed the case with the resident. I agree with the resident's findings and plan as documented. SUBJECTIVE: OBJECTIVE: ASSESSMENT AND PLAN: <Kalani Dill - Last Filed: 01/26/19 21:35> ATTENDING PHYSICIAN STATEMENT I saw and evaluated the patient. I reviewed the resident's note and discussed the case with the resident. I agree with the resident's findings and plan as documented. SUBJECTIVE: OBJECTIVE: ASSESSMENT AND PLAN: <Jose Ramon Mills - Last Filed: 01/28/19 14:05>
[2019-01-26] MEDS ORDERED: POTASSIUM PHOSPHATE 15 MM in DEXTROSE 5%-WATER - 250 ML IVPB ONE (19:23)
[2019-01-26] MEDS: LACTATED RINGERS SOLUTION 1,000 ML/1,000 ML INFUS.BAG IV SCH ×2 (19:30→23:50)
[2019-01-26 20:25] LABS: BASO % 0.2 % (0-2.0); HEMATOCRIT 31.1 % (35.4-49); HEMOGLOBIN 10.4 GM/dL (11.7-16.9); LYMPH % 1.5 % (8-40); MCHC 33.4 g/dl (32.0-35.9); MEAN CELL VOLUME 92.8 fl (80-96); MEAN PLT VOLUME 7.9 fl (7.5-11.1); MONO % 6.3 % (3.8-10.2); PLATELET COUNT 492 K/MM3 (134-434); RBC 3.35 M/mm3 (4.00-5.60); RDW 13.9 % (11.9-15.9)
[2019-01-26] MEDS: SODIUM CHLORIDE 1,000 ML IV SCH (20:30)
[2019-01-26] MEDS ORDERED: PIPERACILLIN/TAZOB 2.25 GM 2.25 GM in DEXTROSE 5%-WATER - 50 ML IVPB SCH (21:00)
[2019-01-26 21:02] LABS: PLATELET ESTIMATE INCREASED
[2019-01-26] MEDS ORDERED: MEROPENEM 1 GM VIAL (RESTRICTED TO ID) IVPB ONE (21:52)
[2019-01-26] MEDS ORDERED: DEXTROSE 5%-WATER 100 ML IVPB ONE (21:52)
[2019-01-26] MEDS ORDERED: TAMSULOSIN HCL 0.4 MG CAP PO SCH (22:00)
[2019-01-26] MEDS: MEROPENEM 1 GM in DEXTROSE 5%-WATER 100 ML IVPB SCH (22:04)
[2019-01-26] MEDS: MUPIROCIN 2% TOPICAL OINTMENT FOR DECOLONIZATION NS SCH (22:09)
[2019-01-26] MEDS: CHLORHEXIDINE GLUCONATE 4% CLEANSER FOR DECOLONIZATION TP SCH (22:09)
--- NOTE | 2019-01-26 22:18 | EKG ---
Test Reason : Blood Pressure : / mmHG Vent. Rate : 106 BPM Atrial Rate : 106 BPM P-R Int : 122 ms QRS Dur : 068 ms QT Int : 358 ms P-R-T Axes : 058 019 035 degrees QTc Int : 475 ms POOR DATA QUALITY, INTERPRETATION MAY BE ADVERSELY AFFECTED SINUS TACHYCARDIA OTHERWISE NORMAL ECG WHEN COMPARED WITH ECG OF 14-JUN-2018 11:26, PREMATURE VENTRICULAR COMPLEXES ARE NO LONGER PRESENT Confirmed by MD JACQUELINE, NILO ([id number]) on 01/26/2019 10:17:48 PM Referred By: Confirmed By:NILO PHILLIPS MD
[2019-01-26] MEDS ORDERED: ACETAMINOPHEN 1000 MG/100 ML VIAL (NON FORMULARY) IVPB PRN (22:20)
[2019-01-27] MEDS: PHENYLEPHRINE HCL 20,000 MCG in SODIUM CHLORIDE 248 ML IVPB SCH ×3 (00:50→21:40)
[2019-01-27] MEDS ORDERED: PHENYLEPHRINE HCL 10 MG/1 ML SINGLE DOSE VIAL ONE ×3 (00:57→14:40)
[2019-01-27] MEDS ORDERED: VANCOMYCIN 1 GM in D5W (PRE-DOCKED) 1,000 MG/250 ML IVPB ONE (01:00)
[2019-01-27 01:21] LABS: BLOOD UREA NITROGEN 8.4 mg/dL (7-18); CALCIUM 7.7 mg/dL (8.5-10.1); CREATININE 0.9 mg/dL (0.55-1.3); POTASSIUM 4.3 mmol/L (3.5-5.1)
[2019-01-27 04:14] VITALS: BMI 20.3
[2019-01-27] MEDS ORDERED: HEPARIN NA (PORCINE) 5,000 UNITS/ML 1ML VIAL SQ SCH (06:00)
[2019-01-27 07:12] LABS: HEMOGLOBIN 10.6 GM/dL (11.7-16.9); MCHC 34.1 g/dl (32.0-35.9); MEAN CELL VOLUME 90.9 fl (80-96); RBC 3.41 M/mm3 (4.00-5.60); RDW 13.7 % (11.9-15.9)
[2019-01-27 07:13] LABS: BASO % 0.4 % (0-2.0); LYMPH % 2.8 % (8-40); MEAN PLT VOLUME 8.2 fl (7.5-11.1); MONO % 5.3 % (3.8-10.2); NEUT % 91.5 % (42.8-82.8); PLATELET COUNT 606 K/MM3 (134-434)
[2019-01-27 07:20] LABS: WHITE BLOOD COUNT 42.4 K/mm3 (4.0-10.0)
[2019-01-27 07:26] LABS: ALBUMIN 2.3 g/dl (3.4-5.0); BILIRUBIN,TOTAL 0.7 mg/dL (0.2-1); CREATININE 0.9 mg/dL (0.55-1.3); MAGNESIUM 1.7 mg/dL (1.8-2.4); PHOSPHOROUS 3.2 mg/dL (2.5-4.9); POTASSIUM 4.1 mmol/L (3.5-5.1); TOT PROT 5.2 g/dl (6.4-8.2)
--- NOTE | 2019-01-27 08:17 | PN ---
Physical Exam: SUBJECTIVE: Patient seen and examined in the icu. awake and alert, able to recall all the events since june, all hospitalizations. feels well, no pain, no nausea or vomiting. OBJECTIVE: leukocytosis 42 on todays labs, on pressors peripherally. he is awake and alert and appears comfortable. no fevers Patient is a 78 year old male with a significant past medical history of iatrogenic perforated sigmoid colon s/p Robb's procedure on 06/2018. he developed urinary retention which required multiple bedolla catheter placements. On 01/2019, patient underwent ostomy closure. bedolla in s/p procedure, bedolla removed on 01/25/2019 by urology and patient reports chills the next day. He was sent to the Ed by visiting nurse. He also reports black tarry stools and is heme positive. He was evaluated by GI and a PPI drip started. he reports poor appetite. He was initially at [facility], transferred to [facility] on 01/26/19 after found to be in septic shock. Vital Signs Period Temp Pulse Resp BP Sys/Mars Pulse Ox Last 24 Hr 98.9 F-102.1 F 71-140 15-24 73-108/44-79 94-99 GENERAL: The patient is awake, alert, and fully oriented, in no acute distress. HEAD: Normal with no signs of trauma. EYES: PERRL, extraocular movements intact, sclera anicteric, conjunctiva clear. No ptosis. ENT: Ears normal, nares patent, oropharynx clear without exudates, moist mucous membranes. NECK: Trachea midline, full range of motion, supple. LUNGS: Breath sounds equal, clear. tolerating room air. HEART: Regular rate and rhythm ABDOMEN: healed, closed vertical surgical incision from sternum to suprapubic area. edges well-approximated, no drainage, non tender. ostomy wound LMQ, circular with granulating tissue, no exudate, no erythema; + bowel sounds. abdomen non tender, non distended. UPPER EXT: equal EXTREMITIES: no edema. NEUROLOGICAL: Normal speech, gait not observed. PSYCH: Normal mood, normal affect. Laboratory Results - last 24 hr 01/26/19 01/26/19 01/26/19 11:50 12:10 12:10 WBC 26.4 H RBC 4.16 Hgb 13.2 Hct 38.5 MCV 92.6 MCH 31.7 MCHC 34.3 RDW 12.6 Plt Count 587 H D MPV 8.0 Absolute Neuts (auto) 25.2 Neutrophils % No Result Required. Neutrophils % (Manual) 91.0 H* Band Neutrophils % 6.0 Lymphocytes % No Result Required. Lymphocytes % (Manual) 2.0 L Monocytes % Monocytes % (Manual) 1 L Eosinophils % Eosinophils % (Manual) Basophils % Basophils % (Manual) Myelocytes % (Man) Promyelocytes % (Man) Blast Cells % (Manual) Nucleated RBC % Metamyelocytes Platelet Estimate Slt increase PT with INR INR PTT (Actin FS) Sodium 132 L Potassium 3.7 Chloride 95 L Carbon Dioxide 23 Anion Gap 14 BUN 12.0 Creatinine 1.2 Est GFR (CKD-EPI)AfAm 67.67 Est GFR (CKD-EPI)NonAf 58.39 Random Glucose 117 H Lactic Acid Calcium 8.9 Phosphorus 1.3 L Magnesium 1.8 Total Bilirubin 1.3 H AST 32 ALT 27 Alkaline Phosphatase 127 H D Troponin I Total Protein 6.5 Albumin 3.4 Urine Color Yellow Urine Appearance Clear Urine pH 5.0 Urine Protein 1+ H Urine Glucose (UA) Negative Urine Ketones 4+ H Urine Blood 2+ H Urine Nitrite Negative Urine Bilirubin 3+ H Urine Urobilinogen 0.2 Ur Leukocyte Esterase 1+ Urine RBC 10-20 Urine WBC 20-40 Urine Bacteria Few Stool Occult Blood Blood Type Antibody Screen 01/26/19 01/26/19 01/26/19 12:10 12:10 12:10 WBC RBC Hgb Hct MCV MCH MCHC RDW Plt Count MPV Absolute Neuts (auto) Neutrophils % Neutrophils % (Manual) Band Neutrophils % Lymphocytes % Lymphocytes % (Manual) Monocytes % Monocytes % (Manual) Eosinophils % Eosinophils % (Manual) Basophils % Basophils % (Manual) Myelocytes % (Man) Promyelocytes % (Man) Blast Cells % (Manual) Nucleated RBC % Metamyelocytes Platelet Estimate PT with INR INR PTT (Actin FS) 23.7 L Sodium Potassium Chloride Carbon Dioxide Anion Gap BUN Creatinine Est GFR (CKD-EPI)AfAm Est GFR (CKD-EPI)NonAf Random Glucose Lactic Acid 1.5 Calcium Phosphorus Magnesium Total Bilirubin AST ALT Alkaline Phosphatase Troponin I 0.03 Total Protein Albumin Urine Color Urine Appearance Urine pH Urine Protein Urine Glucose (UA) Urine Ketones Urine Blood Urine Nitrite Urine Bilirubin Urine Urobilinogen Ur Leukocyte Esterase Urine RBC Urine WBC Urine Bacteria Stool Occult Blood Blood Type Antibody Screen 01/26/19 01/26/19 01/26/19 12:10 12:30 16:20 WBC RBC Hgb Hct MCV MCH MCHC RDW Plt Count MPV Absolute Neuts (auto) Neutrophils % Neutrophils % (Manual) Band Neutrophils % Lymphocytes % Lymphocytes % (Manual) Monocytes % Monocytes % (Manual) Eosinophils % Eosinophils % (Manual) Basophils % Basophils % (Manual) Myelocytes % (Man) Promyelocytes % (Man) Blast Cells % (Manual) Nucleated RBC % Metamyelocytes Platelet Estimate PT with INR 14.5 H INR 1.30 H PTT (Actin FS) Sodium Potassium Chloride Carbon Dioxide Anion Gap BUN Creatinine Est GFR (CKD-EPI)AfAm Est GFR (CKD-EPI)NonAf Random Glucose Lactic Acid Calcium Phosphorus Magnesium Total Bilirubin AST ALT Alkaline Phosphatase Troponin I Total Protein Albumin Urine Color Urine Appearance Urine pH Urine Protein Urine Glucose (UA) Urine Ketones Urine Blood Urine Nitrite Urine Bilirubin Urine Urobilinogen Ur Leukocyte Esterase Urine RBC Urine WBC Urine Bacteria Stool Occult Blood Positive Blood Type O POSITIVE Antibody Screen Negative 01/26/19 01/27/19 01/27/19 19:35 00:15 05:49 WBC 38.0 H* 42.4 H* RBC 3.35 L 3.41 L Hgb 10.4 L 10.6 L Hct 31.1 L D 31.0 L MCV 92.8 90.9 MCH 31.0 31.0 MCHC 33.4 34.1 RDW 13.9 13.7 Plt Count 492 H D 606 H D MPV 7.9 8.2 Absolute Neuts (auto) 35.0 H 38.8 H Neutrophils % 92.0 H 91.5 H Neutrophils % (Manual) 90.0 H D Band Neutrophils % 4.0 Lymphocytes % 1.5 L D 2.8 L D Lymphocytes % (Manual) 2.0 L Monocytes % 6.3 5.3 Monocytes % (Manual) 4 Eosinophils % 0.0 D 0.0 Eosinophils % (Manual) 0.0 Basophils % 0.2 0.4 Basophils % (Manual) 0.0 Myelocytes % (Man) 0 Promyelocytes % (Man) 0 Blast Cells % (Manual) 0 Nucleated RBC % 0 Metamyelocytes 0 Platelet Estimate Increased PT with INR INR PTT (Actin FS) Sodium 138 Potassium 4.3 Chloride 105 Carbon Dioxide 24 Anion Gap 9 BUN 8.4 Creatinine 0.9 Est GFR (CKD-EPI)AfAm 95.82 Est GFR (CKD-EPI)NonAf 82.67 Random Glucose 120 H Lactic Acid Calcium 7.7 L Phosphorus Magnesium Total Bilirubin AST ALT Alkaline Phosphatase Troponin I Total Protein Albumin Urine Color Urine Appearance Urine pH Urine Protein Urine Glucose (UA) Urine Ketones Urine Blood Urine Nitrite Urine Bilirubin Urine Urobilinogen Ur Leukocyte Esterase Urine RBC Urine WBC Urine Bacteria Stool Occult Blood Blood Type Antibody Screen 01/27/19 05:49 WBC RBC Hgb Hct MCV MCH MCHC RDW Plt Count MPV Absolute Neuts (auto) Neutrophils % Neutrophils % (Manual) Band Neutrophils % Lymphocytes % Lymphocytes % (Manual) Monocytes % Monocytes % (Manual) Eosinophils % Eosinophils % (Manual) Basophils % Basophils % (Manual) Myelocytes % (Man) Promyelocytes % (Man) Blast Cells % (Manual) Nucleated RBC % Metamyelocytes Platelet Estimate PT with INR INR PTT (Actin FS) Sodium 141 Potassium 4.1 Chloride 109 H Carbon Dioxide 24 Anion Gap 7 L BUN 8.0 Creatinine 0.9 Est GFR (CKD-EPI)AfAm 95.82 Est GFR (CKD-EPI)NonAf 82.67 Random Glucose 107 H Lactic Acid Calcium 8.0 L Phosphorus 3.2 Magnesium 1.7 L Total Bilirubin 0.7 AST 22 ALT 30 Alkaline Phosphatase 119 H Troponin I Total Protein 5.2 L Albumin 2.3 L Urine Color Urine Appearance Urine pH Urine Protein Urine Glucose (UA) Urine Ketones Urine Blood Urine Nitrite Urine Bilirubin Urine Urobilinogen Ur Leukocyte Esterase Urine RBC Urine WBC Urine Bacteria Stool Occult Blood Blood Type Antibody Screen Active Medications Generic Name Dose Route Start Last Admin Trade Name Freq PRN Reason Stop Dose Admin Acetaminophen 1,000 mg 01/26/19 22:20 Ofirmev Injection - IVPB Q6H PRN PAIN LEVEL 1-5 Chlorhexidine Gluconate 1 applic 01/26/19 22:00 01/26/19 22:09 Hibiclens For Decolonization - TP 1 applic HS CASS Administration Sodium Chloride 1,000 mls @ 150 mls/hr 01/26/19 19:15 01/26/19 20:30 Normal Saline - IV 150 mls/hr ASDIR CASS Administration Lactated Ringer's 1,000 ml in 1,000 mls @ 1,000 mls/hr 01/26/19 19:15 23:50 Lactated Ringers Solution IV 01/27/19 20:14 1,000 mls/hr ASDIR CASS Administration Metronidazole 500 mg in 100 mls @ 100 mls/hr 01/26/19 21:30 01/27/19 01:20 Flagyl 500mg Premixed Ivpb - IVPB 100 mls/hr Q8H-IV CASS Administration Meropenem 1 gm/ Dextrose 100 mls @ 200 mls/hr 01/26/19 21:30 IVPB Q12H CASS Meropenem 1 gm/ Dextrose 100 mls @ 200 mls/hr 01/26/19 21:45 01/26/19 22:04 IVPB 01/27/19 10:14 200 mls/hr Q12H CASS Administration Phenylephrine HCl 20,000 mcg/ 250 mls @ 75 mls/hr 01/26/19 22:30 01/27/19 00: 51 Sodium Chloride IVPB Not Given ASDIR CASS Protocol 100 MCG/MIN Lactated Ringer's 1,000 ml in 1,000 mls @ 1,000 mls/hr 01/26/19 23:45 Lactated Ringers Solution IV 01/28/19 00:44 ASDIR CASS Mupirocin 1 applic 01/26/19 22:00 01/26/19 22:09 Bactroban Ointment (For Decolonization) - NS 01/31/19 21:59 1 applic BID CASS Administration ASSESSMENT/PLAN: Problem List - Problems (1) Septic shock Assessment/Plan: critically elevated leukocytosis @ 42. abdominal sepsis vs urinary sepsis workup ongoing on Meropenem per ID to cover possible esbl organisms on peripheral pressors for goal map > [address] pending official read Code(s): A41.9 - SEPSIS, UNSPECIFIED ORGANISM; R65.21 - SEVERE SEPSIS WITH SEPTIC SHOCK (2) Gastrointestinal hemorrhage with melena Assessment/Plan: stool positive evaluated by GI and on protonix drip hmg/hmt stable Code(s): K92.1 - MELENA (3) Urinary retention Assessment/Plan: bedolla cath palced with clear yellow urine. monitor output. Code(s): R33.9 - RETENTION OF URINE, UNSPECIFIED (4) Lactic acid acidosis Assessment/Plan: lactic acid 1.5 Code(s): E87.2 - ACIDOSIS (5) Prophylactic measure Assessment/Plan: fen continue IVF monitor electrolytes diet as tolerated full code Code(s): Z29.9 - ENCOUNTER FOR PROPHYLACTIC MEASURES, UNSPECIFIED Visit type - Emergency Visit Emergency Visit: Yes ED Registration Date: 01/26/19 Care time: The patient presented to the Emergency Department on the above date and was hospitalized for further evaluation of their emergent condition. - New Patient This patient is new to me today: Yes Date on this admission: 01/27/19 - Critical Care Critical Care patient: Yes Total Critical Care Time (in minutes): 45 Critical Care Statement: The care of this patient involved high complexity decision making to prevent further life threatening deterioration of the patient 's condition and/or to evaluate & treat vital organ system(s) failure or risk of failure.
--- NOTE | 2019-01-27 08:20 | CONSULT ---
Consult Consult Specialty:: PULM/CCM Referred by:: Dr. Asif Reason for Consultation:: Abd Sepsis - History of Present Illness Chief Complaint: Abd discomfort History of Present Illness: Mr. Levin is a 78 y/o man s/p emergent ex-lap Robb's procedure w/ Dr Tripathi here on 06/14 for bowel perf /2 colonoscopy (Dr Ramos). The pt is now POD# 17 s/ p takedown of colostomy and hernia repair on 01/10 at [place] & was discharged home on 01/14. Since D/c the pt has been plagued w/ abd discomfort & bedolla catheter issues requiring multiple trips to [facility] ED for evaluation and Bedolla catheter changes. Yesterday the pt had a fever at home & was told to report to the ED by his visiting nurse. In [facility] ED: T102.1, p 140, BP 87/55, WBC 26.4, lactic acid 1.5, UA: 1+ leuks, 20-40 WBCs; positive occult stool. Thus, the pt was transferred here to [facility] O/N for ICU Level care. BP temporized O/N w/ peripheral phenylephrine. Pt reports marked improvement this AM with fresh bedolla and > 1L UOP. Pt denies any Abd pain. CTA-AP (prelim) shows anterior abd wall surgical changes w/ residual edema, no acute GI hemorrhage, no diverticulitis, no appendicitis, no free air, distended GB w/ several small calcified gallstones, moderate prostate enlargement. (Final CT scan read pending ). - History Source History Provided By: Patient, Medical Record Limitations to Obtaining History: No Limitations - Past Medical History Gastrointestinal: Yes: Diverticulosis, Hemorrhoids (hemorrhoidectomy), Other ( inguinal hernias) Additional Medical History: no medical problems were offered on 05/08/18 other than the hernias - Past Surgical History Past Surgical History: Yes: Colonoscopy, Colostomy Additional Surgical History: Robb's procedure ([facility], 06/14/18). 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 Home Medications - Allergies Allergies/Adverse Reactions: Allergies Allergy/AdvReac Type Severity Reaction Status Date / Time No Known Allergies Allergy Verified 01/18/19 06:33 - Home Medications Home Medications: Ambulatory Orders Tamsulosin HCl [Flomax -] 0.4 mg PO HS 01/14/19 Magnesium Hydrox 2400MG/30Ml [Milk of Magnesia -] 30 ml PO HS 01/26/19 Family Medical History Family History: Denies Review of Systems - Review of Systems Constitutional: reports: Fever, Malaise Eyes: reports: No Symptoms HENT: reports: No Symptoms Neck: reports: No Symptoms Cardiovascular: reports: No Symptoms Respiratory: reports: No Symptoms Gastrointestinal: reports: Abdominal Pain, Bloating, Constipation, Melena Genitourinary: reports: Other (Retention) Breasts: reports: No Symptoms Reported Musculoskeletal: reports: No Symptoms Integumentary: reports: No Symptoms Neurological: reports: No Symptoms Endocrine: reports: No Symptoms Hematology/Lymphatic: reports: No Symptoms Psychiatric: reports: No Symptoms Physical Exam Vital Signs: Vital Signs Temperature 99.1 F 01/27/19 06:51 Pulse Rate 71 01/27/19 06:51 Respiratory Rate 21 H 01/27/19 06:51 Blood Pressure 108/63 01/27/19 06:51 O2 Sat by Pulse Oximetry (%) 99 01/27/19 03:00 Intake & Output 01/24/19 01/25/19 01/26/19 01/27/19 23:59 23:59 23:59 23:59 Intake Total 2600 Output Total 170 Balance 2430 Weight 66.224 kg 66.224 kg Constitutional: Yes: Well Nourished, No Distress, Calm, Pallor Eyes: Yes: WNL, Conjunctiva Clear, EOM Intact HENT: Yes: WNL, Atraumatic, Normocephalic Neck: Yes: WNL, Supple, Trachea Midline Cardiovascular: Yes: WNL, Regular Rate and Rhythm Respiratory: Yes: WNL, Regular, CTA Bilaterally Gastrointestinal: Yes: WNL, Normal Bowel Sounds, Soft, Other (some mild suprapubic distension, non-tender, large well-healed midline scar without erythema, tenderness, or edema, L LQ coloctomy take down C/D/I.) ...Rectal Exam: Yes: Deferred Renal/: Yes: Bedolla Present Breast(s): Yes: WNL Musculoskeletal: Yes: WNL Extremities: Yes: WNL Edema: No Peripheral Pulses WNL: Yes Integumentary: Yes: WNL Wound/Incision: Yes: Clean/Dry, Well Approximated Neurological: Yes: WNL, Alert, Oriented ...Motor Strength: WNL Psychiatric: Yes: WNL, Alert, Oriented Labs: CBC, BMP 01/27/19 05:49 01/27/19 05:49 Microbiology 01/26/19 12:00 Blood - Peripheral Venous Blood Culture - Preliminary NO GROWTH OBTAINED AFTER 24 HOURS, INCUBATION TO CONTINUE FOR 4 DAYS. 01/26/19 12:10 Blood - Peripheral Venous Blood Culture - Preliminary NO GROWTH OBTAINED AFTER 24 HOURS, INCUBATION TO CONTINUE FOR 4 DAYS. Imaging - Results X-ray: Image Reviewed (01/26: The heart is normal size. Elevation of the left diaphragm is noted new. No infiltrates or pleural effusions are suspected. Deformity from an old left clavicular fracture is again seen. Bony thorax otherwise appears intact.) Cat Scan: Report Reviewed (CTA-AP 01/26: (prelim) shows anterior abd wall surgical changes w/ residual edema, no acute GI hemorrhage, no diverticulitis, no appendicitis, no free air, distended GB w/ several small calcified gallstones , moderate prostate enlargement. (Final CT scan read pending)) Ultrasound: Report Reviewed (01/27: Cholelithiasis & Hepatic cyst.) EKG: Report Reviewed (01/26: EKG sinus tachycardia at 106 bpm, no ST segment elevations or T wave inversions.) Assessment/Plan ASSESS: -Abd sepsis vs Uro-sepsis PLAN: -Supp FiO2 for an SpO2 > 92% -Nebs prn -Dela Cruz Clxr -Check C-diff -Continue meropenem to cover possible esbl organisms (2 hospital admissions this year) -ID -IVFs -Cont peripheral pressors for a MAP of 65 -F/u final ct scan read -[facility] ICU PULM/CCM [id number]
[2019-01-27] MEDS ORDERED: DEXTROSE 5%-WATER 100 ML IVPB ONE ×2 (08:43→16:27)
[2019-01-27] MEDS ORDERED: MEROPENEM 1 GM VIAL (RESTRICTED TO ID) IVPB ONE ×2 (08:43→16:27)
[2019-01-27] MEDS: MEROPENEM 1 GM in DEXTROSE 5%-WATER 100 ML IVPB SCH ×3 (08:57→20:58)
--- NOTE | 2019-01-27 09:37 | PN ---
Progress Note (short form) - Note Progress Note: ID consult dictated imp/reccd 78 yo man with PMH of perforation after colonoscopy 06/14, required emergent surgery then with [id number]- Robb's procedure he was discharged to SNF for rehab with bedolla on 06/23, he went home from SNF with bedolla that was ultimately removed end of July he was well for the summer he had takedown of colostomy and hernia repair 01/10 at [place], he was discharged on 01/14 with a bedolla- he had leakage from the bedolla and went to [facility] ed on 01/14 - bedolla was reinserted he was seen 01/18 at [facility] again with abdominal discomfort given pepcid and discharged he has continued to have midepigastric discomfort since, he is taking MOM at home, also noted black stools for the last several days he had bedolla removed by urologist 01/25 he has had difficulty urinating since and yesterday had fever at home was told to come to ED by visiting nurse in ED he had temp of 102 and was hypotensive he was transferred to [facility] for further care overnight he couldnot urinate and bedolla was placed with over one liter of urine he feels well this am still on pressors has no pain cta of abd/pelvis (prelim) no acute GI hemorrhage, distended GBsurgical changes with anterior abdominal wall with residual edema no diverticulitis or appendicitis or free air, moderate prostate enlargement sepsis await final ct scan read (called and got prelim read faxed to the ICU- on chart) symptoms appear related to urinary retention suggesting urinary focus of sepsis continue meropenem to cover possible esbl organisms (2 hospital admissions this year) send cdiff if he has diarrhea abdominal discomfort (midepigastric) is concerning- he has minimal appetite and guaic positive stools- suggest GI eval r/o gi bleed ivf/pressors per science teacher over 40 minutes spent in the care of this critically ill ICU patient Problem List - Problems (1) Sepsis Code(s): A41.9 - SEPSIS, UNSPECIFIED ORGANISM (2) Urinary retention Code(s): R33.9 - RETENTION OF URINE, UNSPECIFIED (3) GI bleed Code(s): K92.2 - GASTROINTESTINAL HEMORRHAGE, UNSPECIFIED
[2019-01-27] MEDS: MUPIROCIN 2% TOPICAL OINTMENT FOR DECOLONIZATION NS SCH ×2 (10:10→21:33)
[2019-01-27] MEDS ORDERED: PT OWN MED DRAWER 7, Y5N ONE ×2 (10:43→13:19)
--- NOTE | 2019-01-27 10:46 | CONS ---
INFECTIOUS DISEASE CONSULTATION DATE OF CONSULTATION: DATE OF DICTATION: 01/27/2019 REQUESTING PHYSICIAN: The hospitalist service. This is a 78-year-old man, otherwise healthy until last year when he reports he had colonoscopy for chronic constipation June 14. He had a procedure-related perforation. He was emergently brought to [facility] where he underwent exploratory laparotomy with a Otis procedure, and he had a colostomy. He was here from June 14 until June 23. He had a blood culture positive for Clostridium. He was treated with piperacillin, tazobactam, and Flagyl. His course was complicated by recurrent urinary retention. He could not urinate without the Zambrano catheter. He was discharged to rehab on the with the Zambrano in place. At the rehab as well where he was for 3 weeks, he required continued Zambrano placement, and he was discharged home with a Zambrano and Flomax. He went to his urologist at the end of July, and he reports the Zambrano was removed. He had an uneventful summer, and January 10, he was admitted to [facility] for reversal of his colostomy. He describes this surgery as uneventful, but again, it was complicated by urinary retention, and he was discharged on the with Zambrano in place. He got home. The Zambrano was leaking. He came to [facility] where a new Zambrano was placed. He then presented again on the to the emergency room with abdominal discomfort. After speaking with the doctors at [place], he had self-discontinued the pain medicines they had given him, and he was having some vague abdominal discomfort. He was evaluated and given Pepcid with improvement of his discomfort. He was discharged home. He says he was taking milk of magnesia, but he really had a poor appetite. He also noted that he had several dark stools. On the , he went to see his urologist, and his Zambrano catheter was removed. Since then, he has had difficulty urinating. On the morning, he noted that he was having difficulty urinating. The visiting nurse noted that he had a fever at home and advised emergency room evaluation. He came to the ER where he had a fever of 102, his blood pressure was 87/55, and his white count was 26,000. His lactic acid was 1.5. He was given vancomycin and Zosyn, and he was transferred Tuesday evening to [facility]. At [facility], he could not urinate at all. He had a Zambrano catheter placed overnight, and he had over a liter of fluid drained. He denies any respiratory symptoms. He denies any headache. He is awake and alert, though he remains on pressors for blood pressure control. He was started overnight on carbapenem as well. His stools were noted to be guaiac positive, and given the fact he had reported black stools at home, he had an abdominal pelvis CTA done that showed no contrast extravasation in the bowel. It showed multiple hepatic cysts, dilated gallbladder with several small calcified gallstones, surgical changes in the anterior abdominal wall with residual edema. The vessels all appeared patent. He had no diverticulitis, appendicitis, or free air. He had some residual mesenteric edema, felt to be related to the recent surgery. He had moderate prostatic enlargement. He also had an ultrasound; the results of which are pending. ALLERGIES: He has no known drug allergies. MEDICATIONS AT HOME: Include milk of magnesia and Flomax. PAST MEDICAL HISTORY: As per the HPI. He has had 2 abdominal surgeries. He has a history of hyperlipidemia, and he has had BPH and urinary retention. 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 His step-son is currently living with him. There is no history of any cigarette use. He is quite athletic and was a former runner. There is no history of cigarette, alcohol, or substance use. FAMILY HISTORY: Reports his parents were quite well. His father in his 70s of an [place]. His mother in her 80s. REVIEW OF SYSTEMS: This morning, he notes some sensation of fecal urgency that he wants to have a bowel movement. He is feeling better now that he has the Zambrano in place. He has no respiratory symptoms. He has no nausea or vomiting or chest pain. PHYSICAL EXAMINATION: General: He is a pleasant man. He is an excellent historian. Vital Signs: His T-max was 102.1. His current temperature is 99.1. Pulse is 71. Blood pressure is 108/63. Respiratory rate is 20. HEENT: He is normocephalic. His eyes are anicteric. He has no thrush or pharyngitis. Neck: Supple. Lungs: Clear to auscultation. Heart: Regular rate and rhythm. Abdomen: Firm. He has a midline incision around his umbilical area. It is quite firm. He has no suprapubic tenderness. He has no CVA or spinal tenderness. Extremities: Without edema. Skin: He has no rash. LABORATORY DATA: White count this morning is 42.4, hemoglobin 10.6, platelets are 606. INR is 1.3. BUN is 8 and creatinine 0.9 with an alkaline phosphatase of 119. Otherwise, normal LFTs. Urinalysis has 1+ leukocyte esterase with 20-40 white cells. Stool occult blood is positive. Abdominal ultrasound is pending. Cultures are pending. CAT scan findings are as previously stated. In summary, this is a 78-year-old man with sepsis. We are awaiting the final CAT scan reading of his abdomen and pelvis. Symptoms appear related to urinary retention, suggesting a urinary focus of sepsis. I would continue meropenem to cover possible extended spectrum beta-lactamase organisms. He has had 2 hospital admissions this year. His abdominal discomfort with guaiac-positive stools is concerning. He has minimal appetite. Would suggest gastrointestinal evaluation which is pending. Intravenous pressors and fluids per claim service representative. I have recommended if he has further diarrhea, would send a stool Clostridium difficile as well. Over 40 minutes were spent in the care of this critically-ill ICU patient. LATOYA TILLMAN M.D. [id number]
--- NOTE | 2019-01-27 11:19 | CON.GI ---
Consult Consult Specialty:: Gastroenterology Referred by:: Dr. Hina Novak Reason for Consultation:: GI bleed - History of Present Illness Chief Complaint: fever and chills History of Present Illness: 78M reports passing blacks stools for the past 3 days. His CTA is unremarkable. He had a col[place] [facility] [place] after which he was requiring a Zambrano catheter. He has been experiencing bloating discomfort and sluggish bowels since the reconnection for which MOM was started by his surgeon at a recent followup. He has been taking Ibuprofen Flomax and gabapentin. He denies any h/o GI bleeding or ulcer disease. He denies vomiting or epigastric pain. He has never had an EGD. He suffered a colonoscopic perforation in 06/[address] Ramos. He underwent a Otis procedure with Dr Tripathi here. His Zambrano was removed on01/25. - History Source History Provided By: Patient Limitations to Obtaining History: No Limitations - Past Medical History Cardio/Vascular: Yes: Hyperlipdemia Gastrointestinal: Yes: Diverticulosis, Hemorrhoids (hemorrhoidectomy), Other ( bilateral inguinal hernias, colon polyp removed 06/27 including a sigmoid adenoma ) Renal/: Yes: BPH Additional Medical History: no medical problems were offered on 05/08/18 other than the hernias - Past Surgical History Past Surgical History: Yes: Colectomy (sigmoid resection 06/14/18 of perforation, segment included an adenoma), Colonoscopy Additional Surgical History: [place]10/[place] [facility] [place] Pen[place]. Hemorrhoidectomy. 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 Place of : [facility] [employer] History of Recent Travel: No Home Medications - Allergies Allergies/Adverse Reactions: Allergies Allergy/AdvReac Type Severity Reaction Status Date / Time No Known Allergies Allergy Verified 01/18/19 06:33 - Home Medications Home Medications: Ambulatory Orders Tamsulosin HCl [Flomax -] 0.4 mg PO HS 01/14/19 Magnesium Hydrox 2400MG/30Ml [Milk of Magnesia -] 30 ml PO HS 01/26/19 Family Medical History Other Family History: M 85, F 74 of COPD, no cancer Review of Systems - Review of Systems Constitutional: reports: Chills, Fever, Loss of Appetite, Unintentional Wgt. Loss Eyes: reports: No Symptoms HENT: reports: No Symptoms Neck: reports: No Symptoms Cardiovascular: reports: No Symptoms Respiratory: reports: No Symptoms Gastrointestinal: reports: Bloating, Constipation, Melena Genitourinary: reports: Other (retention) Physical Exam-GI Vital Signs: Vital Signs Temperature 99.1 F 01/27/19 06:51 Pulse Rate 71 01/27/19 06:51 Respiratory Rate 21 H 01/27/19 06:51 Blood Pressure 108/63 01/27/19 06:51 O2 Sat by Pulse Oximetry (%) 99 01/27/19 03:00 CBC,CMP WBC 42.4 K/mm3 (4.0-10.0) H* 01/27/19 05:49 RBC 3.41 M/mm3 (4.00-5.60) L 01/27/19 05:49 Hgb 10.6 GM/dL (11.7-16.9) L 01/27/19 05:49 Hct 31.0 % (35.4-49) L 01/27/19 05:49 MCV 90.9 fl (80-96) 01/27/19 05:49 MCH 31.0 pg (25.7-33.7) 01/27/19 05:49 MCHC 34.1 g/dl (32.0-35.9) 01/27/19 05:49 RDW 13.7 % (11.9-15.9) 01/27/19 05:49 Plt Count 606 K/MM3 (134-434) H D 01/27/19 05:49 MPV 8.2 fl (7.5-11.1) 01/27/19 05:49 Absolute Neuts (auto) 38.8 K/mm3 (1.5-8.0) H 01/27/19 05:49 Neutrophils % 91.5 % (42.8-82.8) H 01/27/19 05:49 Neutrophils % (Manual) 90.0 % (42.8-82.8) H D 01/26/19 19:35 Band Neutrophils % 4.0 % 01/26/19 19:35 Lymphocytes % 2.8 % (8-40) L D 01/27/19 05:49 Lymphocytes % (Manual) 2.0 % (8-40) L 01/26/19 19:35 Monocytes % 5.3 % (3.8-10.2) 01/27/19 05:49 Monocytes % (Manual) 4 % (3.8-10.2) 01/26/19 19:35 Eosinophils % 0.0 % (0-4.5) 01/27/19 05:49 Eosinophils % (Manual) 0.0 % (0-4.5) 01/26/19 19:35 Basophils % 0.4 % (0-2.0) 01/27/19 05:49 Basophils % (Manual) 0.0 % (0-2.0) 01/26/19 19:35 Myelocytes % (Man) 0 % (0-2) 01/26/19 19:35 Promyelocytes % (Man) 0 % (0-2) 01/26/19 19:35 Blast Cells % (Manual) 0 % (0-0) 01/26/19 19:35 Nucleated RBC % 0 % (0-0) 01/26/19 19:35 Metamyelocytes 0 % (0-2) 01/26/19 19:35 Platelet Estimate Increased 01/26/19 19:35 Sodium 141 mmol/L (136-145) 01/27/19 05:49 Potassium 4.1 mmol/L (3.5-5.1) 01/27/19 05:49 Chloride 109 mmol/L (98-107) H 01/27/19 05:49 Carbon Dioxide 24 mmol/L (21-32) 01/27/19 05:49 Anion Gap 7 MMOL/L (8-16) L 01/27/19 05:49 BUN 8.0 mg/dL (7-18) 01/27/19 05:49 Creatinine 0.9 mg/dL (0.55-1.3) 01/27/19 05:49 Est GFR (CKD-EPI)AfAm 95.82 01/27/19 05:49 Est GFR (CKD-EPI)NonAf 82.67 01/27/19 05:49 Random Glucose 107 mg/dL (74-106) H 01/27/19 05:49 Lactic Acid 1.5 mmol/L (0.4-2.0) 01/26/19 12:10 Calcium 8.0 mg/dL (8.5-10.1) L 01/27/19 05:49 Phosphorus 3.2 mg/dL (2.5-4.9) 01/27/19 05:49 Magnesium 1.7 mg/dL (1.8-2.4) L 01/27/19 05:49 Total Bilirubin 0.7 mg/dL (0.2-1) 01/27/19 05:49 AST 22 U/L (15-37) 01/27/19 05:49 ALT 30 U/L (13-61) 01/27/19 05:49 Alkaline Phosphatase 119 U/L (45-117) H 01/27/19 05:49 Troponin I 0.03 ng/ml (0.00-0.05) 01/26/19 12:10 Total Protein 5.2 g/dl (6.4-8.2) L 01/27/19 05:49 Albumin 2.3 g/dl (3.4-5.0) L 01/27/19 05:49 Current Medications Generic Name Dose Route Start Last Admin Trade Name Freq PRN Reason Stop Dose Admin Acetaminophen 1,000 mg 01/26/19 22:20 Ofirmev Injection - IVPB Q6H PRN PAIN LEVEL 1-5 Chlorhexidine Gluconate 1 applic 01/26/19 22:00 01/26/19 22:09 Hibiclens For Decolonization - TP 1 applic HS CASS Administration Sodium Chloride 1,000 mls @ 150 mls/hr 01/26/19 19:15 01/26/19 20:30 Normal Saline - IV 150 mls/hr ASDIR CASS Administration Lactated Ringer's 1,000 ml in 1,000 mls @ 1,000 mls/hr 01/26/19 19:15 23:50 Lactated Ringers Solution IV 01/27/19 20:14 1,000 mls/hr ASDIR CASS Administration Metronidazole 500 mg in 100 mls @ 100 mls/hr 01/26/19 21:30 01/27/19 10:10 Flagyl 500mg Premixed Ivpb - IVPB 100 mls/hr Q8H-IV CASS Administration Phenylephrine HCl 20,000 mcg/ 250 mls @ 75 mls/hr 01/26/19 22:30 01/27/19 00: 51 Sodium Chloride IVPB Not Given ASDIR CASS Protocol 100 MCG/MIN Lactated Ringer's 1,000 ml in 1,000 mls @ 1,000 mls/hr 01/26/19 23:45 Lactated Ringers Solution IV 01/28/19 00:44 ASDIR CASS Meropenem 1 gm/ Dextrose 100 mls @ 200 mls/hr 01/27/19 18:00 IVPB Q8H-IV CASS Pantoprazole Sodium 160 mg/ 290 mls @ 14.5 mls/hr 01/27/19 11:30 Sodium Chloride IVPB Q20H CASS Mupirocin 1 applic 01/26/19 22:00 01/27/19 10:10 Bactroban Ointment (For Decolonization) - NS 01/31/19 21:59 1 applic BID CASS Administration Polyethylene Glycol 17 gm 01/27/19 22:00 Miralax (For Daily Use) - PO BID CASS Constitutional: Yes: Anxious Eyes: Yes: Conjunctiva Clear HENT: Yes: Normocephalic Neck: Yes: Supple Cardiovascular: Yes: Regular Rate and Rhythm Respiratory: Yes: CTA Bilaterally Gastrointestinal Inspection: Yes: Scars (healed lower midline incisions and healing LLQ colostomy site) ...Auscultate: Yes: Hypoactive Bowel Sounds ...Palpate: Yes: Soft, Other (nontender) ...Rectal Exam: Yes: Other (no stool obtained on digital exam, 2+ prostate found ) Edema: No Neurological: Yes: Alert, Oriented Labs: CBC, BMP 01/27/19 05:49 01/27/19 05:49 INR, PTT INR 1.30 (0.82-1.09) H 01/26/19 12:10 Imaging - Results Cat Scan: Report Reviewed ( Scanned Document Preliminary Reports Patient Name : Chauncey Levin : 1940 ID: [id number] Scanned on: 27-Jan-2019 08:32 Zoom: Auto25%30%40%50%60%70%80%90%100%125%150%200% [id number].jpeg) Problem List - Problems (1) Gastrointestinal hemorrhage with melena Code(s): K92.1 - MELENA (2) Tubular adenoma of colon Code(s): D12.6 - BENIGN NEOPLASM OF COLON, UNSPECIFIED (3) Urinary retention Code(s): R33.9 - RETENTION OF URINE, UNSPECIFIED (4) Diverticula of colon Code(s): K57.30 - DVRTCLOS OF LG INT W/O PERFORATION OR ABSCESS W/O BLEEDING (5) Inguinal hernia bilateral, non-recurrent Code(s): K40.20 - BI INGUINAL HERNIA, W/O OBST OR GANGRENE, NOT SPCF RECUR (6) Perforated sigmoid colon Code(s): K63.1 - PERFORATION OF INTESTINE (NONTRAUMATIC) Assessment/Plan Assessment: - I suspect that the dark stools reflect passage of old dried blood in the intestine distal to the colostomy which is now being evacuated. I have however discussed the possibility of a UGI bleed with Chauncey and the potential need for an interventional EGD. I of informed him of the potential risks associated with EGD including perforation and worsening of a hemorrhage. He is on a position to make an informed consent and at this time is declining the procedure. Plan: -- PPI drip empiricaly -- Miralax to aid stool passage through Otis segment -- Serial CBCs
[2019-01-27] MEDS ORDERED: PANTOPRAZOLE SODIUM 80 MG in SODIUM CHLORIDE 100 ML IVPB SCH (11:30)
[2019-01-27 11:33] LABS: ANISOCYTOSIS 2+; PLATELET ESTIMATE INCREASED
[2019-01-27 12:40] LABS: MACROCYTOSIS 2+
[2019-01-27] MEDS ORDERED: LACTATED RINGERS SOLUTION 1,000 ML/1,000 ML INFUS.BAG IV STA (13:15)
[2019-01-27] MEDS: PANTOPRAZOLE SODIUM 160 MG in SODIUM CHLORIDE 290 ML IVPB SCH (13:35)
[2019-01-27 17:51] LABS: HEMATOCRIT 33.6 % (35.4-49); HEMOGLOBIN 11.2 GM/dL (11.7-16.9); MCH 30.9 pg (25.7-33.7); MCHC 33.3 g/dl (32.0-35.9); MEAN CELL VOLUME 92.9 fl (80-96); MEAN PLT VOLUME 8.2 fl (7.5-11.1); PLATELET COUNT 540 K/MM3 (134-434); RBC 3.61 M/mm3 (4.00-5.60); RDW 13.7 % (11.9-15.9)
[2019-01-27 17:53] LABS: WHITE BLOOD COUNT 37.2 K/mm3 (4.0-10.0)
[2019-01-27 18:13] LABS: BLOOD UREA NITROGEN 7.6 mg/dL (7-18); MAGNESIUM 1.8 mg/dL (1.8-2.4); PHOSPHOROUS 1.9 mg/dL (2.5-4.9); POTASSIUM 3.8 mmol/L (3.5-5.1)
[2019-01-27] MEDS: LACTATED RINGERS SOLUTION 1,000 ML/1,000 ML INFUS.BAG IV SCH ×2 (20:59→21:00)
[2019-01-27] MEDS: POLYETHYLENE GLYCOL 3350 119 GM BTL PO SCH (21:38)
[2019-01-27] MEDS: CHLORHEXIDINE GLUCONATE 4% CLEANSER FOR DECOLONIZATION TP SCH (21:38)
[2019-01-28] MEDS: SODIUM CHLORIDE 1,000 ML IV SCH ×3 (01:09→17:39)
[2019-01-28] MEDS: LACTATED RINGERS SOLUTION 1,000 ML/1,000 ML INFUS.BAG IV SCH (01:09)
[2019-01-28] MEDS ORDERED: MEROPENEM 1 GM VIAL (RESTRICTED TO ID) IVPB ONE ×3 (01:33→17:36)
[2019-01-28] MEDS ORDERED: DEXTROSE 5%-WATER 100 ML IVPB ONE ×3 (01:34→17:36)
[2019-01-28] MEDS: MEROPENEM 1 GM in DEXTROSE 5%-WATER 100 ML IVPB SCH ×3 (01:50→17:39)
[2019-01-28] MEDS: PHENYLEPHRINE HCL 20,000 MCG in SODIUM CHLORIDE 248 ML IVPB SCH ×2 (06:03→17:50)
[2019-01-28] MEDS: PANTOPRAZOLE SODIUM 160 MG in SODIUM CHLORIDE 290 ML IVPB SCH (07:02)
--- NOTE | 2019-01-28 08:34 | PN ---
Progress Note (short form) - Note Progress Note: Pulm/CCM Pt seen and examined in the ICU. No c/o abd pain. Remains on low dose Luisito. WBC downtrending on Gian. Active Medications Acetaminophen (Ofirmev Injection -) 1,000 mg IVPB Q6H PRN PRN Reason: PAIN LEVEL 1-5 Chlorhexidine Gluconate (Hibiclens For Decolonization -) 1 applic TP HS CASS Last Admin: 01/27/19 21:38 Dose: 1 applic Sodium Chloride (Normal Saline -) 1,000 mls @ 150 mls/hr IV ASDIR CASS Last Admin: 01/28/19 08:04 Dose: 150 mls/hr Metronidazole (Flagyl 500mg Premixed Ivpb -) 500 mg in 100 mls @ 100 mls/hr IVPB Q8H-IV CASS Last Admin: 01/28/19 09:35 Dose: 100 mls/hr Phenylephrine HCl 20,000 mcg/ (Sodium Chloride) 250 mls @ 75 mls/hr IVPB ASDIR CASS; Protocol Last Titration: 01/28/19 09:44 Dose: 20 mcg/min, 15 mls/hr Meropenem 1 gm/ Dextrose 100 mls @ 200 mls/hr IVPB Q8H-IV CASS Last Admin: 01/28/19 09:33 Dose: 200 mls/hr Pantoprazole Sodium 160 mg/ (Sodium Chloride) 290 mls @ 14.5 mls/hr IVPB Q20H CASS Last Admin: 01/28/19 07:02 Dose: 14.5 mls/hr Sodium Phosphate 15 mm/ (Dextrose) 255 mls @ 62.5 mls/hr IVPB ONCE ONE Stop: 01/28/19 14:32 Mupirocin (Bactroban Ointment (For Decolonization) -) 1 applic NS BID CASS Stop: 01/31/19 21:59 Last Admin: 01/28/19 09:34 Dose: 1 applic Polyethylene Glycol (Miralax (For Daily Use) -) 17 gm PO BID CASS Last Admin: 01/28/19 09:36 Dose: 17 grams Vital Signs Period Temp Pulse Resp BP Sys/Mars Pulse Ox Last 24 Hr 97.9 F-98.9 F 60-86 14-26 89-132/52-87 92-99 Intake & Output 01/25/19 01/26/19 01/27/19 01/28/19 23:59 23:59 23:59 23:59 Intake Total 2600 8950 2786 Output Total 170 2750 2400 Balance 2430 6200 386 Weight 66.224 kg 66.224 kg Gen: WN elderly man, in NAD HEENT: MMM Resp: CTA CV: RRR ABD:WNL, Normal Bowel Sounds, Soft, Other (some mild suprapubic distension, non- tender, large well-healed midline scar without erythema, tenderness, or edema, L LQ coloctomy take down C/D/I.) EXT:WWP, no edema Neuro: A+O x3;No c/o pain CBC, BMP 01/28/19 08:29 01/28/19 08:29 Imaging - Results X-ray: Image Reviewed (01/26: The heart is normal size. Elevation of the left diaphragm is noted new. No infiltrates or pleural effusions are suspected. Deformity from an old left clavicular fracture is again seen. Bony thorax otherwise appears intact.) Cat Scan: Report Reviewed (CTA-AP 01/26: (prelim) shows anterior abd wall surgical changes w/ residual edema, no acute GI hemorrhage, no diverticulitis, no appendicitis, no free air, distended GB w/ several small calcified gallstones , moderate prostate enlargement. (Final CT scan read pending)) Ultrasound: Report Reviewed (01/27: Cholelithiasis & Hepatic cyst.) EKG: Report Reviewed (01/26: EKG sinus tachycardia at 106 bpm, no ST segment elevations or T wave inversions.) Assessment/Plan ASSESS: -Abd sepsis vs Uro-sepsis PLAN: -Supp FiO2 for an SpO2 > 92% -Nebs prn -F/u Dela Cruz Clxr -Check C-diff -Continue meropenem to cover possible esbl organisms (2 hospital admissions this year) -ID -IVFs -Cont peripheral pressors for a MAP of 65 -F/u final ct scan read -GI -Transfer to [facility] for further possible Ex-Lap Kalani Acevedo, ACNP-[facility] ICU PULM/CCM [id number]
[2019-01-28 09:21] LABS: BASO % 0.2 % (0-2.0); EOS % 0.2 % (0-4.5); HEMATOCRIT 34.1 % (35.4-49); HEMOGLOBIN 11.4 GM/dL (11.7-16.9); LYMPH % 3.5 % (8-40); MCHC 33.5 g/dl (32.0-35.9); MEAN CELL VOLUME 92.7 fl (80-96); MONO % 4.7 % (3.8-10.2); NEUT % 91.4 % (42.8-82.8); PLATELET COUNT 504 K/MM3 (134-434); RBC 3.69 M/mm3 (4.00-5.60); RDW 13.6 % (11.9-15.9); WHITE BLOOD COUNT 26.6 K/mm3 (4.0-10.0)
--- NOTE | 2019-01-28 09:23 | PN ---
Progress Note (short form) - Note Progress Note: remains on pressors feels improved 3 small BMs yesterday no diarrhea Vital Signs Period Temp Pulse Resp BP Sys/Mars Pulse Ox Last 24 Hr 97.9 F-98.9 F 60-86 14-26 89-132/52-87 92-99 cor-rrr lungs clear abd soft, induration mid abd at surgical site ext no edema Labs pending Microbiology 01/26/19 12:00 Blood - Peripheral Venous Blood Culture - Preliminary NO GROWTH OBTAINED AFTER 24 HOURS, INCUBATION TO CONTINUE FOR 4 DAYS. 01/26/19 12:10 Blood - Peripheral Venous Blood Culture - Preliminary NO GROWTH OBTAINED AFTER 24 HOURS, INCUBATION TO CONTINUE FOR 4 DAYS. URINE CULTURE no growth official ct scan pending- prelim reviewed- have called radiology to expedite a/p sepsis await final ct scan read symptoms appear related to urinary retention suggesting urinary focus of sepsis continue meropenem to cover possible esbl organisms (2 hospital admissions this year) send cdiff if he has diarrhea abdominal discomfort resolved- on PPI drip, cbc pending this am ivf/pressors per change number operator unclear source of his sepsis all cultures are negative (but appears to have gotten antibiotics prior to urine culture) await labs await ct scan reading d/w change number operator agree with plans to transfer for surgical evaluation at [facility]- his hypotension and leukocytosis are out of proportion for a UTI
[2019-01-28] MEDS: MUPIROCIN 2% TOPICAL OINTMENT FOR DECOLONIZATION NS SCH (09:34)
[2019-01-28] MEDS: POLYETHYLENE GLYCOL 3350 119 GM BTL PO SCH (09:36)
[2019-01-28 09:47] LABS: ALBUMIN 2.2 g/dl (3.4-5.0); BILIRUBIN,TOTAL 0.4 mg/dL (0.2-1); BLOOD UREA NITROGEN 6.7 mg/dL (7-18); CALCIUM 8.1 mg/dL (8.5-10.1); CREATININE 0.9 mg/dL (0.55-1.3); POTASSIUM 4.1 mmol/L (3.5-5.1); TOT PROT 5.3 g/dl (6.4-8.2)
[2019-01-28] MEDS ORDERED: SODIUM PHOSPHATE - 15 MM in DEXTROSE 5%-WATER - 250 ML IVPB ONE (10:28)
[2019-01-28 11:51] LABS: PLATELET ESTIMATE INCREASED
--- NOTE | 2019-01-28 11:52 | PN.GI ---
GI Progress Note Subjective: GI Note: Had a large brown BM after my rectal exam yesterday and feels improved after that and ate a substantial dinner. Continues to require pressors for hypotension. No abdominal pain . BC and urine no growth - Objective Vital Signs: Vital Signs Temperature 98.1 F 01/28/19 10:00 Pulse Rate 67 01/28/19 11:08 Respiratory Rate 15 01/28/19 11:00 Blood Pressure 138/69 01/28/19 11:08 O2 Sat by Pulse Oximetry (%) 99 01/28/19 09:00 Laboratory Tests 01/27/19 01/27/19 01/28/19 05:49 17:35 08:29 WBC 42.4 H* 37.2 H* 26.6 H Hgb 11.4 L BUN Creatinine Total Bilirubin AST ALT Alkaline Phosphatase 01/28/19 08:29 WBC Hgb BUN 6.7 L Creatinine 0.9 Total Bilirubin 0.4 AST 14 L ALT 24 Alkaline Phosphatase 111 Constitutional: Calm Gastrointestinal Inspection: Yes: Scars (wound and colostomy site are clean) ...Auscultate: Yes: Hypoactive Bowel Sounds ...Palpate: Yes: Soft, Other (nontender) Labs: CBC, BMP 01/28/19 08:29 01/28/19 08:29 INR, PTT INR 1.30 (0.82-1.09) H 01/26/19 12:10 Assessment/Plan Assessment: - No signs of GI hemoprrhage so continue to believe that the dark stools reflected passage of old dried blood in the intestine distal to the colostomy. Continue to suspect sepsis as the cause of hypotension. Urine C/S NG but I believe he got antibiotics before the culture was taken and his U/A reveals WBCs. Continue to urosepsis but cannot absolutely exclude bacteremia from a still healing anastomosis Plan: -- Swith to PPI BID -- Cut back Miralax once a day -- Stool for C diff -- Mr. Levin's family has contacted Dr Penaloza at [facility] who has expressed willingness to accept Chauncey for transfer if no clear cut etiology for hypotension is established. I discussed this with Chauncey and have no objections to this transfer. Problem List - Problems (1) Gastrointestinal hemorrhage with melena Code(s): K92.1 - MELENA (2) Tubular adenoma of colon Code(s): D12.6 - BENIGN NEOPLASM OF COLON, UNSPECIFIED (3) Urinary retention Code(s): R33.9 - RETENTION OF URINE, UNSPECIFIED (4) Diverticula of colon Code(s): K57.30 - DVRTCLOS OF LG INT W/O PERFORATION OR ABSCESS W/O BLEEDING (5) Inguinal hernia bilateral, non-recurrent Code(s): K40.20 - BI INGUINAL HERNIA, W/O OBST OR GANGRENE, NOT SPCF RECUR (6) Perforated sigmoid colon Code(s): K63.1 - PERFORATION OF INTESTINE (NONTRAUMATIC)
[2019-01-28] MEDS ORDERED: PT OWN MED DRAWER 7, Y5N ONE (12:53)
[2019-01-28] MEDS ORDERED: LIDOCAINE HCL 1%, 10 MG/ML (20ML VIAL) ONE (13:15)
--- NOTE | 2019-01-28 15:48 | PROC ---
Central Line Insertion Indication: CVP Monitoring, Poor Venous Access, Sepsis, Vasopressor Risks and Benefits Explained: Yes Consent on Chart: Yes Central Line: Triple Lumen Catheter Anesthesia: 1% Lidocaine Sterile Technique: Yes Ultrasound Guided Assistance: Yes Position: Right Internal Jugular Post Insertion: Yes: Bilateral Breath Sounds, Bilateral Chest Expansion, Chest X-Ray Ordered Sterile Dressing Applied: Yes Remarks: EBL < 3cc, Pt tolerated the procedure well. I have no complications to report.
--- NOTE | 2019-01-28 15:58 | PROC ---
Procedure Note Procedure: ICU A-LINE INSERTION NOTE: INDICATION: Imminent OR for EX-Lap CONSENT: Consent was secured from the pt. The consent was signed, witnessed, & placed in the pt's chart. PROCEDURE: R Hand. Sha's test confirmed good arterial blood flow in both the radial & ulnar arteries. The R wrist was secured in position, prepped, & draped in the usual sterile fashion. STOP TIME OUT I did conduct a "TIME OUT" w/ the pt's nurse Angel at the bedside. The site was anesthetized w/ 3cc of 1% Lidocaine. Using the ARROW self contained needle/ catheter/wire kit I did insert a 20G needle into the R radial artery on the first attempt w/ pulsating bright red blood return. The wire slid into the artery easily. I then slid a 20G catheter off of the needle, over the wire, into the R radial artery via the Seldinger technique. I then removed the wire/ needle and I did appreciate bright red spurting arterial blood.The arterial line was connected. A good tracing & arterial waveform was confirmed. The catheter was secured in place w/ 2.0 Nylon sutures X3 and a sterile dressing was applied. Post procedure re-eval confirmed a pink warm R hand cap-refill < 2sec in all 5 R hand digits. Pt tolerated the procedure well, I have no complications to report. Matt Parson, ACNP-BC [id number] [facility] PUL / CCM
--- NOTE | 2019-01-28 16:34 | PN ---
Physical Exam: SUBJECTIVE: Patient seen and examined at the bedside. OBJECTIVE: leukocytosis 26 on todays labs, on pressors peripherally and attempting to wean off pressors. he is awake and alert and appears comfortable. no fevers recorded. Patient is a 78 year old male with a significant past medical history of iatrogenic perforated sigmoid colon s/p Robb's procedure on 06/2018. he developed urinary retention which required multiple bedolla catheter placements. On 01/2019, patient underwent ostomy closure. bedolla in s/p procedure, bedolla removed on 01/25/2019 by urology and patient reports chills the next day. He was sent to the Ed by visiting nurse. He also reports black tarry stools and is heme positive. He was evaluated by GI and a PPI drip started. he reports poor appetite. He was initially at [facility], transferred to [facility] on 01/26/19 after found to be in septic shock and remains on pressors. Vital Signs Period Temp Pulse Resp BP Sys/Mars Pulse Ox Last 24 Hr 97.9 F-98.9 F 60-86 14-26 89-138/52-87 92-99 GENERAL: The patient is awake, alert, and fully oriented, in no acute distress. HEAD: Normal with no signs of trauma. EYES: PERRL, extraocular movements intact, sclera anicteric, conjunctiva clear. No ptosis. ENT: Ears normal, nares patent, oropharynx clear without exudates, moist mucous membranes. NECK: Trachea midline, full range of motion, supple. LUNGS: Breath sounds equal, clear. tolerating room air. HEART: Regular rate and rhythm ABDOMEN: healed, closed vertical surgical incision 2 inches above umbilicus to suprapubic area. edges well-approximated, no drainage, non tender. ostomy wound LMQ, circular with granulating tissue, no exudate, no erythema; + bowel sounds. abdomen non tender, non distended. tolerating diet. UPPER EXT: equal EXTREMITIES: no edema. NEUROLOGICAL: Normal speech, gait not observed. PSYCH: Normal mood, normal affect. Laboratory Results - last 24 hr 01/27/19 01/27/19 01/28/19 17:35 17:35 08:29 WBC 37.2 H* 26.6 H RBC 3.61 L 3.69 L Hgb 11.2 L 11.4 L Hct 33.6 L 34.1 L MCV 92.9 92.7 MCH 30.9 31.0 MCHC 33.3 33.5 RDW 13.7 13.6 Plt Count 540 H 504 H MPV 8.2 8.0 Absolute Neuts (auto) 24.3 H Neutrophils % 91.4 H Neutrophils % (Manual) 87.0 H Band Neutrophils % 8.0 Lymphocytes % 3.5 L D Lymphocytes % (Manual) 1.0 L D Monocytes % 4.7 Monocytes % (Manual) 4 Eosinophils % 0.2 D Eosinophils % (Manual) 0.0 Basophils % 0.2 Basophils % (Manual) 0.0 Nucleated RBC % 0 Platelet Estimate Increased Platelet Comment No clumping noted Sodium 141 Potassium 3.8 Chloride 108 H Carbon Dioxide 23 Anion Gap 10 BUN 7.6 Creatinine 1.0 Est GFR (CKD-EPI)AfAm 84.36 Est GFR (CKD-EPI)NonAf 72.78 Random Glucose 112 H Calcium 8.0 L Phosphorus 1.9 L Magnesium 1.8 Total Bilirubin AST ALT Alkaline Phosphatase Total Protein Albumin 01/28/19 08:29 WBC RBC Hgb Hct MCV MCH MCHC RDW Plt Count MPV Absolute Neuts (auto) Neutrophils % Neutrophils % (Manual) Band Neutrophils % Lymphocytes % Lymphocytes % (Manual) Monocytes % Monocytes % (Manual) Eosinophils % Eosinophils % (Manual) Basophils % Basophils % (Manual) Nucleated RBC % Platelet Estimate Platelet Comment Sodium 143 Potassium 4.1 Chloride 111 H Carbon Dioxide 25 Anion Gap 7 L BUN 6.7 L Creatinine 0.9 Est GFR (CKD-EPI)AfAm 95.82 Est GFR (CKD-EPI)NonAf 82.67 Random Glucose 110 H Calcium 8.1 L Phosphorus Magnesium 2.0 Total Bilirubin 0.4 AST 14 L ALT 24 Alkaline Phosphatase 111 Total Protein 5.3 L Albumin 2.2 L Active Medications Generic Name Dose Route Start Last Admin Trade Name Freq PRN Reason Stop Dose Admin Acetaminophen 1,000 mg 01/26/19 22:20 Ofirmev Injection - IVPB Q6H PRN PAIN LEVEL 1-5 Chlorhexidine Gluconate 1 applic 01/26/19 22:00 01/27/19 21:38 Hibiclens For Decolonization - TP 1 applic HS CASS Administration Sodium Chloride 1,000 mls @ 150 mls/hr 01/26/19 19:15 01/28/19 08:04 Normal Saline - IV 150 mls/hr ASDIR CASS Administration Metronidazole 500 mg in 100 mls @ 100 mls/hr 01/26/19 21:30 01/28/19 09:35 Flagyl 500mg Premixed Ivpb - IVPB 100 mls/hr Q8H-IV CASS Administration Phenylephrine HCl 20,000 mcg/ 250 mls @ 75 mls/hr 01/26/19 22:30 01/28/19 11: 08 Sodium Chloride IVPB 15 mcg/min ASDIR CASS 11.25 mls/hr Titration Protocol 100 MCG/MIN Meropenem 1 gm/ Dextrose 100 mls @ 200 mls/hr 01/27/19 18:00 01/28/19 09:33 IVPB 200 mls/hr Q8H-IV CASS Administration Pantoprazole Sodium 160 mg/ 290 mls @ 14.5 mls/hr 01/27/19 11:30 01/28/19 07: 02 Sodium Chloride IVPB 14.5 mls/hr Q20H CASS Administration Mupirocin 1 applic 01/26/19 22:00 01/28/19 09:34 Bactroban Ointment (For Decolonization) - NS 01/31/19 21:59 1 applic BID CASS Administration Polyethylene Glycol 17 gm 01/27/19 22:00 01/28/19 09:36 Miralax (For Daily Use) - PO 17 grams BID CASS Administration ASSESSMENT/PLAN: Problem List - Problems (1) Septic shock Assessment/Plan: critically elevated leukocytosis @ 42, now downtrending to 26 abdominal sepsis vs urinary sepsis workup ongoing on Meropenem per ID to cover possible esbl organisms on peripheral pressors for goal map > [address] pending official read unclear source of septic shock at this time. Code(s): A41.9 - SEPSIS, UNSPECIFIED ORGANISM; R65.21 - SEVERE SEPSIS WITH SEPTIC SHOCK (2) Gastrointestinal hemorrhage with melena Assessment/Plan: stool positive evaluated by GI and on protonix drip hmg/hmt stable Code(s): K92.1 - MELENA (3) Urinary retention Assessment/Plan: bedolla cath palced with clear yellow urine. monitor output. Code(s): R33.9 - RETENTION OF URINE, UNSPECIFIED (4) Lactic acid acidosis Assessment/Plan: lactic acid 1.5 Code(s): E87.2 - ACIDOSIS (5) Prophylactic measure Assessment/Plan: fen continue IVF monitor electrolytes diet as tolerated full code Code(s): Z29.9 - ENCOUNTER FOR PROPHYLACTIC MEASURES, UNSPECIFIED Visit type - Emergency Visit Emergency Visit: Yes ED Registration Date: 01/26/19 Care time: The patient presented to the Emergency Department on the above date and was hospitalized for further evaluation of their emergent condition. - New Patient This patient is new to me today: No - Critical Care Critical Care patient: Yes Total Critical Care Time (in minutes): 45 Critical Care Statement: The care of this patient involved high complexity decision making to prevent further life threatening deterioration of the patient 's condition and/or to evaluate & treat vital organ system(s) failure or risk of failure.
[2019-01-28] MEDS ORDERED: PHENYLEPHRINE HCL 10 MG/1 ML SINGLE DOSE VIAL ONE (17:48)
[2019-01-28 18:04] VITALS: BP 118/61; PULSE 68; TEMP 98.5
--- NOTE | 2019-01-29 08:01 | DS ---
Physical Exam: SUBJECTIVE: Patient seen and examined OBJECTIVE: Vital Signs Period Temp Pulse Resp BP Sys/Mars Pulse Ox Last 24 Hr 98.0 F-98.9 F 67-85 15-22 105-138/61-79 99 PHYSICAL EXAM GENERAL: The patient is awake, alert, and fully oriented, in no acute distress. HEAD: Normal with no signs of trauma. EYES: PERRL, extraocular movements intact, sclera anicteric, conjunctiva clear. ENT: Ears normal, nares patent, oropharynx clear without exudates, moist mucous membranes. NECK: Trachea midline, full range of motion, supple. LUNGS: Breath sounds equal, clear to auscultation bilaterally, no wheezes, no crackles, no accessory muscle use. HEART: Regular rate and rhythm, S1, S2 without murmur, rub or gallop. ABDOMEN: Soft, nontender, nondistended, normoactive bowel sounds, no guarding, no rebound, no hepatosplenomegaly, no masses. EXTREMITIES: 2+ pulses, warm, well-perfused, no edema. NEUROLOGICAL: Cranial nerves II through XII grossly intact. Normal speech, gait not observed. PSYCH: Normal mood, normal affect. SKIN: Warm, dry, normal turgor, no rashes or lesions noted. LABS Laboratory Results - last 24 hr 01/28/19 01/28/19 08:29 08:29 WBC 26.6 H RBC 3.69 L Hgb 11.4 L Hct 34.1 L MCV 92.7 MCH 31.0 MCHC 33.5 RDW 13.6 Plt Count 504 H MPV 8.0 Absolute Neuts (auto) 24.3 H Neutrophils % 91.4 H Neutrophils % (Manual) 87.0 H Band Neutrophils % 8.0 Lymphocytes % 3.5 L D Lymphocytes % (Manual) 1.0 L D Monocytes % 4.7 Monocytes % (Manual) 4 Eosinophils % 0.2 D Eosinophils % (Manual) 0.0 Basophils % 0.2 Basophils % (Manual) 0.0 Nucleated RBC % 0 Platelet Estimate Increased Platelet Comment No clumping noted Sodium 143 Potassium 4.1 Chloride 111 H Carbon Dioxide 25 Anion Gap 7 L BUN 6.7 L Creatinine 0.9 Est GFR (CKD-EPI)AfAm 95.82 Est GFR (CKD-EPI)NonAf 82.67 Random Glucose 110 H Calcium 8.1 L Magnesium 2.0 Total Bilirubin 0.4 AST 14 L ALT 24 Alkaline Phosphatase 111 Total Protein 5.3 L Albumin 2.2 L HOSPITAL COURSE: Date of Admission:01/26/19 Date of Discharge: 01/29/19 Discharge Summary Problems reviewed: Yes Reason For Visit: CHILLS, LOW BP Condition: Fair - Instructions Referrals: Sabino Etienne MD [Primary Care Provider] - Disposition: TRANSFER ACUTE CARE/OTHER HOSP - Home Medications Comprehensive Discharge Medication List: Ambulatory Orders Tamsulosin HCl [Flomax -] 0.4 mg PO HS 01/14/19 Magnesium Hydrox 2400MG/30Ml [Milk of Magnesia -] 30 ml PO HS 01/26/19 Problem List - Problems (1) Septic shock Code(s): A41.9 - SEPSIS, UNSPECIFIED ORGANISM; R65.21 - SEVERE SEPSIS WITH SEPTIC SHOCK (2) Gastrointestinal hemorrhage with melena Code(s): K92.1 - MELENA (3) Urinary retention Code(s): R33.9 - RETENTION OF URINE, UNSPECIFIED (4) Lactic acid acidosis Code(s): E87.2 - ACIDOSIS (5) Prophylactic measure Code(s): Z29.9 - ENCOUNTER FOR PROPHYLACTIC MEASURES, UNSPECIFIED
== END 2019-01-28 18:52 | disposition short-term general hospital (02) | DRG 871 ==
LOC: FER 11:23 → SUPCPDRO 11:23 → JICU 18:41
PROVIDERS: ADMIT Internal Medicine; ATTEND Nurse Practitioner Family
PROC: 05HM33Z Insertion of Infusion Device into Right Internal Jugular Vein, Percutaneous Approach (ICD-10-PCS; principal; 2019-01-28)
PROC: B513ZZA Fluoroscopy of Right Jugular Veins, Guidance (ICD-10-PCS; 2019-01-28)
PROC: 03HB33Z Insertion of Infusion Device into Right Radial Artery, Percutaneous Approach (ICD-10-PCS; 2019-01-28)
DX: A41.9 Sepsis, unspecified organism (principal); R65.21 Severe sepsis with septic shock; N39.0 Urinary tract infection, site not specified; E87.2 Acidosis; K92.2 Gastrointestinal hemorrhage, unspecified; E78.5 Hyperlipidemia, unspecified; R50.9 Fever, unspecified; R33.9 Retention of urine, unspecified; K57.90 Diverticulosis of intestine, part unspecified, without perforation or abscess without bleeding; K64.8 Other hemorrhoids; R00.0 Tachycardia, unspecified; K40.20 Bilateral inguinal hernia, without obstruction or gangrene, not specified as recurrent; D12.6 Benign neoplasm of colon, unspecified
CPT/HCPCS: 36415; 71045-TC-FY; 74174-TC; 76700-TC; 80048; 80053; 81003; 81015; 82272; 83605; 83735; 84100; 84484; 85025; 85027; 85610; 85730; 86850; 86900; 86901; 87040; 87086; 93005; 99285-25; J7030

== ENCOUNTER 2020-08-11 11:56 | Observation (INO) | payer OTHER ==
[2020-08-11 12:07] VITALS: BMI 21.6
[2020-08-11 13:32] LABS: BASO % 0.7 % (0-2.0); EOS % 0.6 % (0-4.5); HEMATOCRIT 47.1 % (35.4-49); HEMOGLOBIN 15.8 GM/dL (11.7-16.9); LYMPH % 27.9 % (8-40); MCH 32.4 pg (25.7-33.7); MCHC 33.6 g/dl (32.0-35.9); MEAN CELL VOLUME 96.3 fl (80-96); MEAN PLT VOLUME 8.6 fl (7.5-11.1); MONO % 9.7 % (3.8-10.2); NEUT % 61.1 % (42.8-82.8); PLATELET COUNT 229 K/MM3 (134-434); RBC 4.89 M/mm3 (4.00-5.60); RDW 13.6 % (11.9-15.9); WHITE BLOOD COUNT 6.2 K/mm3 (4.0-10.0)
[2020-08-11 13:39] LABS: INR 0.94 (0.83-1.09); PROTHROMBIN TIME (PATIENT) 11.4 SEC (9.7-13.0)
[2020-08-11 13:42] LABS: ACTIVATED PTT 32.5 SECONDS (25.2-36.5)
[2020-08-11 13:51] LABS: CHLORIDE 106 mmol/L (98-107); SODIUM 140 mmol/L (136-145)
[2020-08-11 13:57] LABS: BLOOD UREA NITROGEN 11.6 mg/dL (7-18); CALCIUM 9.2 mg/dL (8.5-10.1)
[2020-08-11 13:58] LABS: ALBUMIN 3.9 g/dl (3.4-5.0); ANION GAP 5 MMOL/L (8-16); CO2 29 mmol/L (21-32); GLUCOSE,RANDOM 83 mg/dL (74-106)
[2020-08-11 14:01] LABS: CHOLESTEROL 180 mg/dL (50-200); CREATININE 1.2 mg/dL (0.55-1.3); SGOT/AST 30 U/L (15-37); SGPT/ALT 41 U/L (13-61); TRIGLYCERIDES 137 mg/dL (0-150)
[2020-08-11 14:02] LABS: BILIRUBIN,TOTAL 0.7 mg/dL (0.2-1); LDL CHOLESTEROL (ONLY SJRH) 83 mg/dL (5-100)
[2020-08-11 14:03] LABS: ALK PHOS 84 U/L (45-117); HDL CHOLESTEROL 79 mg/dL (40-60)
[2020-08-11 14:52] LABS: PH,URINE 7.5 (5.0-8.0); URINE APPEARANCE CLEAR; URINE BILIRUBIN NEGATIVE (NEGATIVE); URINE COLOR YELLOW; URINE GLUCOSE (UA) NEGATIVE (NEGATIVE); URINE KETONE NEGATIVE (NEGATIVE); URINE LEUK ESTERASE NEGATIVE (NEGATIVE); URINE NITRITE NEGATIVE (NEGATIVE); URINE PROTEIN NEGATIVE (NEGATIVE); URINE UROBILINOGEN 0.2 mg/dL (0.2-1.0)
[2020-08-11] MEDS ORDERED: ASPIRIN 81 MG CHEWABLE TABLETS PO ONE (16:00)
[2020-08-11] MEDS ORDERED: ASPIRIN 81 MG CHEWABLE TABLETS ONE (16:11)
[2020-08-11 17:06] VITALS: TEMP 98.1
[2020-08-11] MEDS ORDERED: ATORVASTATIN CA 40 MG TABLET (FP) PO SCH (22:00)
[2020-08-11] MEDS ORDERED: ATORVASTATIN CA 10 MG TABLET (FP) PO SCH (22:00)
[2020-08-12] MEDS ORDERED: ASPIRIN 81 MG CHEWABLE TABLETS PO SCH (10:00)
[2020-08-12] MEDS ORDERED: ENOXAPARIN NA (PORCINE) 40 MG/0.4 ML DISP.SYRIN SQ SCH (10:00)
[2020-08-12 14:46] LABS: BASO % 0.3 % (0-2.0); HEMATOCRIT 49.8 % (35.4-49); HEMOGLOBIN 16.7 GM/dL (11.7-16.9); LYMPH % 21.6 % (8-40); MCH 32.2 pg (25.7-33.7); MCHC 33.6 g/dl (32.0-35.9); MEAN CELL VOLUME 95.9 fl (80-96); MEAN PLT VOLUME 8.3 fl (7.5-11.1); MONO % 6.3 % (3.8-10.2); NEUT % 71.8 % (42.8-82.8); PLATELET COUNT 234 K/MM3 (134-434); RDW 13.6 % (11.9-15.9); WHITE BLOOD COUNT 7.7 K/mm3 (4.0-10.0)
[2020-08-12 15:02] LABS: BLOOD UREA NITROGEN 10.8 mg/dL (7-18); CALCIUM 9.2 mg/dL (8.5-10.1)
[2020-08-12 15:05] VITALS: BP 128/65; PULSE 72
[2020-08-12 15:06] LABS: CREATININE 1.1 mg/dL (0.55-1.3)
[2020-08-12 15:07] LABS: BILIRUBIN,TOTAL 1.1 mg/dL (0.2-1); TOT PROT 7.4 g/dl (6.4-8.2)
[2020-08-13] MEDS ORDERED: ROSUVASTATIN CA 10 MG TABLET (FP) PO SCH (10:00)
== END 2020-08-12 15:06 | disposition home or self-care (01) ==
LOC: JER 11:56 → INTOOBSV 13:22 → JERBED 13:22 → UNDOADMOB 13:22 → JERBED 08-12 11:36
PROVIDERS: ATTEND Internal Medicine
DX: G45.9 Transient cerebral ischemic attack, unspecified (principal); E78.5 Hyperlipidemia, unspecified; Z29.9 Encounter for prophylactic measures, unspecified; K57.92 Diverticulitis of intestine, part unspecified, without perforation or abscess without bleeding; K64.9 Unspecified hemorrhoids; K92.9 Disease of digestive system, unspecified; Z98.890 Other specified postprocedural states
CPT/HCPCS: 36415; 70450-TC; 70551-TC; 80053; 80061; 80307; 81003; 82550; 83721; 83735; 84439; 84443; 84484; 85025; 85610; 85730; 87086; 93005; 93010; 93880-TC; 99285-25; C9803; G0378; U0003; U0005